=== PATIENT | female | born 1950 | race Caucasian/White ===

== ENCOUNTER 2018-04-16 07:24 | Emergency (ER) | payer OTHER, BC ==
[~2018-04-16] VITALS: Ht 170.2 cm; Wt 71.9 kg
[2018-04-16 07:26] VITALS: TEMP 36.8; Ht 170.2 cm; Wt 71.9 kg
[2018-04-16] MEDS ORDERED: ONDANSETRON INJ 2 MG/ML 2 ML VIAL IV STA (07:45)
[2018-04-16] MEDS ORDERED: SODIUM CHLORIDE 0.9% 1000ML 1,000 ML IV STA (07:45)
[2018-04-16] MEDS ORDERED: MoRPHine SULFATE 10 MG/ML CARP/VIAL IV STA (07:45)
[2018-04-16] MEDS ORDERED: KETOROLAC TROMETHAMINE 30 MG/ML VIAL IV STA (07:45)
[2018-04-16] MEDS ORDERED: TAMSULOSIN HCL 0.4 MG CAP PO ONE (07:45)
[2018-04-16 08:06] LABS: BASO % 0.6 %; BASO ABS # 0.04 K/uL (0-0.2); EOS % 1.6 %; EOS ABS # 0.11 K/uL (0-0.5); HEMATOCRIT 40.5 % (37-47); HEMOGLOBIN 13.4 g/dL (12.0-16.0); IG# 0.02 K/uL (0.00-0.02); LYMPH % 16.4 %; LYMPH ABS # 1.12 K/uL (1.2-3.4); MEAN CELL VOLUME 85.3 fL (80-100); MEAN CORPUSCULAR HEMOGLOBIN 28.2 pg (25-34); MEAN CORPUSCULAR HGB CONC 33.1 g/dl (32-36); MEAN PLATELET VOLUME 10.2 fL (7.4-10.4); MONO % 4.5 %; MONO ABS # 0.31 K/uL (0.11-0.59); NEUT % 76.6 %; NEUT ABS # 5.25 K/uL (1.4-6.5); PLATELET COUNT 167 K/uL (130-400); RED CELL DISTRIBUTION WIDTH CV 14.9 % (11.5-14.5); RED CELL DISTRIBUTION WIDTH SD 46.4 fL (36.4-46.3); WHITE BLOOD COUNT 6.85 K/uL (4.8-10.8)
[2018-04-16] MEDS ORDERED: LISI-787 PO (08:20)
[2018-04-16] MEDS ORDERED: DEXL60CA4 PO (08:20)
[2018-04-16] MEDS ORDERED: GLC/500 PO ×2 (08:20)
[2018-04-16] MEDS ORDERED: ROSU40TA PO (08:20)
[2018-04-16 08:25] LABS: ALBUMIN 3.2 gm/dl (3.4-5.0); CALCIUM 8.7 mg/dl (8.5-10.1); CREATININE 1.01 mg/dl (0.60-1.20); POTASSIUM 3.3 mmol/L (3.5-5.1); TOTAL PROTEIN 7.1 gm/dl (6.4-8.2)
[2018-04-16] MEDS ORDERED: NITROFURANTOIN MONOHYDRATE 100 MG CAP PO ONE (08:30)
--- NOTE | 2018-04-16 08:37 | EMERGENCY ROOM VISIT NOTE ---
ED Visit Note First contact with patient: 07:29 I have seen and examined this patient with Brenda Zepeda and generally agree with the treatment plan as discussed. Current/Historical Medications Scheduled Dexlansoprazole (Dexilant), 60 MG PO DAILY Lisinopril/Hctz (Zestoretic 20MG/12.5MG), 2 TABS PO DAILY Metformin Hcl (Glucophage), 1,000 MG PO QAM Metformin Hcl (Glucophage), 500 MG PO QPM Rosuvastatin Calcium (Crestor), 40 MG PO DAILY Allergies Coded Allergies: Acetaminophen (Unverified Adverse Reaction, Intermediate, "MAKES ME SICK" , 04/16/18) Oxycodone (Unverified Adverse Reaction, Intermediate, "MAKES ME SICK", ) Vital Signs Date Time Temp Pulse Resp B/P (MAP) Pulse Ox O2 Delivery O2 Flow Rate FiO2 04/16/18 08:13 54 98 Room Air 04/16/18 07:26 36.8 51 18 155/74 99 Room Air Laboratory Results 04/16/18 07:55 Red Blood Count 4.75, Mean Corpuscular Volume 85.3, Mean Corpuscular Hemoglobin 28.2, Mean Corpuscular Hemoglobin Concent 33.1, Mean Platelet Volume 10.2, Neutrophils (%) (Auto) 76.6, Lymphocytes (%) (Auto) 16.4, Monocytes (%) (Auto) 4.5, Eosinophils (%) (Auto) 1.6, Basophils (%) (Auto) 0.6, Neutrophils # (Auto) 5.25, Lymphocytes # (Auto) 1.12, Monocytes # (Auto) 0.31, Eosinophils # (Auto) 0.11, Basophils # (Auto) 0.04 04/16/18 07:55 Test 04/16/18 07:30 04/16/18 07:55 Urine Color YELLOW Urine Appearance CLOUDY (CLEAR) Urine pH 5.0 (4.5-7.5) Urine Specific [place] 1.021 (1.000-1.030) Urine Protein 1+ (NEG) Urine Glucose (UA) 1+ (NEG) Urine Ketones TRACE (NEG) Urine Occult Blood 2+ (NEG) Urine Nitrite NEG (NEG) Urine Bilirubin NEG (NEG) Urine Urobilinogen NEG (NEG) Urine Leukocyte Esterase TRACE (NEG) Urine WBC (Auto) 5-10 /hpf (0-5) Urine RBC (Auto) >30 /hpf (0-4) Urine Hyaline Casts (Auto) 5-10 /lpf (0-5) Urine Epithelial Cells (Auto) >30 /lpf (0-5) Urine Bacteria (Auto) 1+ (NEG) White Blood Count 6.85 K/uL (4.8-10.8) Red Blood Count 4.75 M/uL (4.2-5.4) Hemoglobin 13.4 g/dL (12.0-16.0) Hematocrit 40.5 % (37-47) Mean Corpuscular Volume 85.3 fL (80-100) Mean Corpuscular Hemoglobin 28.2 pg (25-34) Mean Corpuscular Hemoglobin Concent 33.1 g/dl (32-36) Platelet Count 167 K/uL (130-400) Mean Platelet Volume 10.2 fL (7.4-10.4) Neutrophils (%) (Auto) 76.6 % Lymphocytes (%) (Auto) 16.4 % Monocytes (%) (Auto) 4.5 % Eosinophils (%) (Auto) 1.6 % Basophils (%) (Auto) 0.6 % Neutrophils # (Auto) 5.25 K/uL (1.4-6.5) Lymphocytes # (Auto) 1.12 K/uL (1.2-3.4) Monocytes # (Auto) 0.31 K/uL (0.11-0.59) Eosinophils # (Auto) 0.11 K/uL (0-0.5) Basophils # (Auto) 0.04 K/uL (0-0.2) RDW Standard Deviation 46.4 fL (36.4-46.3) RDW Coefficient of Variation 14.9 % (11.5-14.5) Immature Granulocyte % (Auto) 0.3 % Immature Granulocyte # (Auto) 0.02 K/uL (0.00-0.02) Anion Gap 8.0 mmol/L (3-11) Est Creatinine Clear Calc Drug Dose 52.6 ml/min Estimated GFR () 66.7 Estimated GFR (Non- 57.6 BUN/Creatinine Ratio 12.4 (10-20) Calcium Level 8.7 mg/dl (8.5-10.1) Total Bilirubin 0.9 mg/dl (0.2-1) Direct Bilirubin 0.2 mg/dl (0-0.2) Aspartate Amino Transf (AST/SGOT) 14 U/L (15-37) Alanine Aminotransferase (ALT/SGPT) 16 U/L (12-78) Alkaline Phosphatase 78 U/L (45-117) Total Protein 7.1 gm/dl (6.4-8.2) Albumin 3.2 gm/dl (3.4-5.0) Lipase 78 U/L (73-393) Medications Administered Medications (Trade) Dose Ordered Sig/Nam Route Start Time Stop Time Status Last Admin Dose Admin Sodium Chloride 1,000 ml @ 999 mls/hr Q1H1M STAT IV 04/16/18 07:45 04/16/18 08:45 04/16/18 08:07 999 MLS/HR Ondansetron HCl (Zofran Inj) 4 mg NOW STAT IV 04/16/18 07:45 04/16/18 07:49 DC 04/16/18 08:06 4 MG Ketorolac Tromethamine (Toradol Inj) 30 mg NOW STAT IV 04/16/18 07:45 04/16/18 07:49 DC 04/16/18 08:06 30 MG Morphine Sulfate (MoRPHine SULFATE INJ) 6 mg NOW STAT IV 04/16/18 07:45 04/16/18 07:49 DC 04/16/18 08:07 6 MG Tamsulosin HCl (Flomax Cap) 0.4 mg NOW ONCE PO 04/16/18 07:45 04/16/18 07:49 DC 04/16/18 08:06 0.4 MG Departure Information Referrals Shukri Cruz (PCP) Patient Instructions My [facility]
--- NOTE | 2018-04-16 08:59 | DIAGNOSTIC IMAGING REPORT ---
ABD/PELVIS WITHOUT FOR STONE CT DOSE: 1033.54 mGy.cm HISTORY: Flank pain rt flank pain TECHNIQUE: Multiaxial CT images of the abdomen and pelvis were performed without the use of intravenous and oral contrast according to the standard department stone protocol. A dose lowering technique was utilized adhering to the principles of ALARA. COMPARISON STUDY: None. FINDINGS: Minimal dependent basilar atelectasis. Liver spleen and pancreas are unremarkable. Left kidney is negative for hydronephrosis. There are several small cysts with a 1.8 cm cyst at the midpole region. No evidence for hydronephrosis. Right kidney shows moderate right renal hydronephrosis with mild infiltrative change of the right perinephric fat. Right ureter is slightly full as compared to the left extending to a partially obstructing calculus of the distal right ureter measuring 3 mm at the level of the inferior right sacroiliac joint. Nonobstructive bowel pattern. Normal appendix. Chronic sigmoid diverticulosis with no evidence for acute diverticulitis. IMPRESSION: 1. 3 mm partially obstructing calculus distal right ureter. 2. Mild right hydroureteronephrosis. 3. Chronic sigmoid diverticulosis with no evidence for acute diverticulitis. The above report was generated using voice recognition software. It may contain grammatical, syntax or spelling errors. Electronically signed by: Gera Zepeda M.D. 04/16/2018 8:58 AM Dictated Date/Time: 04/16/2018 8:50 AM
[2018-04-16] MEDS ORDERED: POTASSIUM CHLORIDE 10 MEQ TABCR PO STA (09:23)
[2018-04-16] MEDS ORDERED: OXYC-737 PO (09:39)
[2018-04-16] MEDS ORDERED: NITR-5 PO (09:39)
[2018-04-16] MEDS ORDERED: TAMS0.4C38 PO (09:40)
[2018-04-16] MEDS ORDERED: ONDA4TAB10 SL (09:40)
--- NOTE | 2018-04-16 09:42 | EMERGENCY ROOM VISIT NOTE ---
History First contact with patient: 07:29 Chief Complaint: KIDNEY STONE Stated Complaint: KIDNEY PAIN,FLANK PAIN, LOWER ABD PAIN History of Present Illness The patient is a 67 year old female who presents to the Emergency Room with complaints of right flank pain radiating around the right side into her groin. This started at 7pm last night and has persisted since then so decided to come to the ER. She describes the pain as a constant sharp ache that she rates a 10/ 10 on her pain scale but admits it is not the worst pain of her life. She had taken 1.5 tablets of oxycodon last night that is her husbands and experienced some relief. She admits to limiting her intake of fluids, but that is not out of the usual. She has a history of kidney stone, her last one being 5 years ago. She has had nausea, vomiting this morning, blood in urine, and slight pain during urination. She denies any urinary retention, history problems with her bowels, constipation, diarrhea, or change in bowel habits. The patient states that she has seen a urologist in [place] in the past but would like to go to urologist locally if needed. Review of Systems 10 system review was performed and was negative unless stated otherwise history of present illness. Past Medical/Surgical History Diabetic, hypertension, GERD, cholecystectomy, hysterectomy, kidney stones, femoral stents. Social History Smoking Status: Former Smoker Alcohol Use: none Marital Status: Housing Status: lives with family Occupation Status: retired Current/Historical Medications Scheduled Dexlansoprazole (Dexilant), 60 MG PO DAILY Lisinopril/Hctz (Zestoretic 20MG/12.5MG), 2 TABS PO DAILY Metformin Hcl (Glucophage), 1,000 MG PO QAM Metformin Hcl (Glucophage), 500 MG PO QPM Rosuvastatin Calcium (Crestor), 40 MG PO DAILY Physical Exam Vital Signs Date Time Temp Pulse Resp B/P (MAP) Pulse Ox O2 Delivery O2 Flow Rate FiO2 04/16/18 08:55 79 16 128/61 96 Room Air 04/16/18 08:13 54 98 Room Air 04/16/18 07:26 36.8 51 18 155/74 99 Room Air Physical Exam GENERAL: 67-year-old female appears in no acute distress. MENTAL Status: Alert and oriented 3. MOUTH: Mucosa is moist NECK: Supple, no lymphadenopathy noted. No carotid bruits noted. LUNGS: Clear auscultation without wheezes rales or rhonchi. CARDIAC: Regular rate and rhythm without murmur. Pulses is full and equal throughout. BACK: Right CVA tenderness noted. ABDOMEN: Positive bowel sounds all 4 quadrants. Soft, generalized mild tenderness to palpation throughout. No organomegaly or masses noted. EXTREMITIES: No cyanosis or edema noted. Medical Decision & Procedures ER Provider Diagnostic Interpretation: ABD/PELVIS WITHOUT FOR STONE CT DOSE: 1033.54 mGy.cm HISTORY: Flank pain rt flank pain TECHNIQUE: Multiaxial CT images of the abdomen and pelvis were performed without the use of intravenous and oral contrast according to the standard department stone protocol. A dose lowering technique was utilized adhering to the principles of ALARA. COMPARISON STUDY: None. FINDINGS: Minimal dependent basilar atelectasis. Liver spleen and pancreas are unremarkable. Left kidney is negative for hydronephrosis. There are several small cysts with a 1.8 cm cyst at the midpole region. No evidence for hydronephrosis. Right kidney shows moderate right renal hydronephrosis with mild infiltrative change of the right perinephric fat. Right ureter is slightly full as compared to the left extending to a partially obstructing calculus of the distal right ureter measuring 3 mm at the level of the inferior right sacroiliac joint. Nonobstructive bowel pattern. Normal appendix. Chronic sigmoid diverticulosis with no evidence for acute diverticulitis. IMPRESSION: 1. 3 mm partially obstructing calculus distal right ureter. 2. Mild right hydroureteronephrosis. 3. Chronic sigmoid diverticulosis with no evidence for acute diverticulitis. The above report was generated using voice recognition software. It may contain grammatical, syntax or spelling errors. Electronically signed by: Gera Zepeda M.D. 04/16/2018 8:58 AM Dictated Date/Time: 04/16/2018 8:50 AM Laboratory Results 04/16/18 07:55 Red Blood Count 4.75, Mean Corpuscular Volume 85.3, Mean Corpuscular Hemoglobin 28.2, Mean Corpuscular Hemoglobin Concent 33.1, Mean Platelet Volume 10.2, Neutrophils (%) (Auto) 76.6, Lymphocytes (%) (Auto) 16.4, Monocytes (%) (Auto) 4.5, Eosinophils (%) (Auto) 1.6, Basophils (%) (Auto) 0.6, Neutrophils # (Auto) 5.25, Lymphocytes # (Auto) 1.12, Monocytes # (Auto) 0.31, Eosinophils # (Auto) 0.11, Basophils # (Auto) 0.04 04/16/18 07:55 Test 04/16/18 07:30 04/16/18 07:55 Urine Color YELLOW Urine Appearance CLOUDY (CLEAR) Urine pH 5.0 (4.5-7.5) Urine Specific [place] 1.021 (1.000-1.030) Urine Protein 1+ (NEG) Urine Glucose (UA) 1+ (NEG) Urine Ketones TRACE (NEG) Urine Occult Blood 2+ (NEG) Urine Nitrite NEG (NEG) Urine Bilirubin NEG (NEG) Urine Urobilinogen NEG (NEG) Urine Leukocyte Esterase TRACE (NEG) Urine WBC (Auto) 5-10 /hpf (0-5) Urine RBC (Auto) >30 /hpf (0-4) Urine Hyaline Casts (Auto) 5-10 /lpf (0-5) Urine Epithelial Cells (Auto) >30 /lpf (0-5) Urine Bacteria (Auto) 1+ (NEG) White Blood Count 6.85 K/uL (4.8-10.8) Red Blood Count 4.75 M/uL (4.2-5.4) Hemoglobin 13.4 g/dL (12.0-16.0) Hematocrit 40.5 % (37-47) Mean Corpuscular Volume 85.3 fL (80-100) Mean Corpuscular Hemoglobin 28.2 pg (25-34) Mean Corpuscular Hemoglobin Concent 33.1 g/dl (32-36) Platelet Count 167 K/uL (130-400) Mean Platelet Volume 10.2 fL (7.4-10.4) Neutrophils (%) (Auto) 76.6 % Lymphocytes (%) (Auto) 16.4 % Monocytes (%) (Auto) 4.5 % Eosinophils (%) (Auto) 1.6 % Basophils (%) (Auto) 0.6 % Neutrophils # (Auto) 5.25 K/uL (1.4-6.5) Lymphocytes # (Auto) 1.12 K/uL (1.2-3.4) Monocytes # (Auto) 0.31 K/uL (0.11-0.59) Eosinophils # (Auto) 0.11 K/uL (0-0.5) Basophils # (Auto) 0.04 K/uL (0-0.2) RDW Standard Deviation 46.4 fL (36.4-46.3) RDW Coefficient of Variation 14.9 % (11.5-14.5) Immature Granulocyte % (Auto) 0.3 % Immature Granulocyte # (Auto) 0.02 K/uL (0.00-0.02) Anion Gap 8.0 mmol/L (3-11) Est Creatinine Clear Calc Drug Dose 52.6 ml/min Estimated GFR () 66.7 Estimated GFR (Non- 57.6 BUN/Creatinine Ratio 12.4 (10-20) Calcium Level 8.7 mg/dl (8.5-10.1) Total Bilirubin 0.9 mg/dl (0.2-1) Direct Bilirubin 0.2 mg/dl (0-0.2) Aspartate Amino Transf (AST/SGOT) 14 U/L (15-37) Alanine Aminotransferase (ALT/SGPT) 16 U/L (12-78) Alkaline Phosphatase 78 U/L (45-117) Total Protein 7.1 gm/dl (6.4-8.2) Albumin 3.2 gm/dl (3.4-5.0) Lipase 78 U/L (73-393) Medications Administered Medications (Trade) Dose Ordered Sig/Nam Route Start Time Stop Time Status Last Admin Dose Admin Sodium Chloride 1,000 ml @ 999 mls/hr Q1H1M STAT IV 04/16/18 07:45 04/16/18 08:45 DC 04/16/18 08:07 999 MLS/HR Ondansetron HCl (Zofran Inj) 4 mg NOW STAT IV 04/16/18 07:45 04/16/18 07:49 DC 04/16/18 08:06 4 MG Ketorolac Tromethamine (Toradol Inj) 30 mg NOW STAT IV 04/16/18 07:45 04/16/18 07:49 DC 04/16/18 08:06 30 MG Morphine Sulfate (MoRPHine SULFATE INJ) 6 mg NOW STAT IV 04/16/18 07:45 04/16/18 07:49 DC 04/16/18 08:07 6 MG Tamsulosin HCl (Flomax Cap) 0.4 mg NOW ONCE PO 04/16/18 07:45 04/16/18 07:49 DC 04/16/18 08:06 0.4 MG Nitrofurantoin Macrocrystals (Macrobid Cap) 100 mg ONE ONCE PO 04/16/18 08:30 04/16/18 08:31 DC 04/16/18 08:54 100 MG ED Course The patient was evaluated. Patient's EMR medication list were reviewed. IV access was obtained. The patient was given 1 L normal saline wide open. The patient was given Toradol 30 mg IV, Zofran 4 mg IV, morphine 6 mg IV and Flomax 0.4 mg p.o. CBC differential, renal profile, LFTs and lipase levels were ordered. Urinalysis was ordered. Urinalysis revealed positive blood and bacteria. The patient was given Macrobid 100 mg p.o. The patient's labs are reviewed. The patient's potassium was slightly low therefore she was given 10 mEq of K Dur p.o. CT of the abdomen and pelvis for stone was ordered interpreted by the radiologist as above with a 3 mm partially obstructing stone at the right distal ureter with mild hydronephrosis. Patient was informed of the findings. The patient was feeling much better. Patient was discharged home in stable condition after being independently evaluated by Dr. Lockhart. Medical Decision Differential diagnosis include UTI, pyelonephritis, ureteral calculi [place] Drug Monitoring Program Search Results: patient reviewed within database Medication Reconcilliation Current Medication List: was personally reviewed by ks Blood Pressure Screening Patient's blood pressure: Elevated blood pressure Blood pressure disposition: Elevated BP felt to be situational Impression Primary Impression: Ureteral calculus, right Additional Impressions: UTI (urinary tract infection) Hypokalemia Departure Information Dispostion Home / Self-Care Condition GOOD Prescriptions Tamsulosin Hcl (FLOMAX) 0.4 Mg Cap 0.4 MG PO DAILY for 7 Days, #7 CAP Prov: Rema Zepeda PA-C 04/16/18 Ondasetron Odt (ZOFRAN ODT) 4 Mg Tab 4 MG SL Q6H for Nausea, #10 TAB Prov: Rema Zepeda PA-C 04/16/18 Oxycodone Immediate Rel Tab (ROXICODONE IR) 5 Mg Tab 1-2 TAB PO Q4H Y for Pain, #24 TAB Prov: Rema Zepeda PA-C 04/16/18 Nitrofurantoin Monohyd Macrocr (Macrobid) 100 Mg Cap 100 MG PO BID for 7 Days, #14 CAP Prov: Rema Zepeda PA-C 04/16/18 Referrals Ramesh Benavidez MD Forms HOME CARE DOCUMENTATION FORM, IMPORTANT VISIT INFORMATION Patient Instructions My [facility] [employer] Additional Instructions Strain all urine. Eat a banana daily for 1 week. Push fluids. Ibuprofen 600 mg every 6 hours with food for pain. Take OxyIR as needed for more severe pain. Do not drive while taking the OxyIR. Take Zofran as needed for nausea. Take Macrobid as prescribed for your UTI. Take Flomax daily as prescribed. If your stone does not pass in 5 days follow-up with Dr. Benavidez. If your symptoms worsen in the interim/uncontrolled pain, uncontrolled vomiting, fever return to ER immediately. Problem Qualifiers Additional Impressions: UTI (urinary tract infection) Urinary tract infection type: acute cystitis Hematuria presence: with hematuria Qualified Codes: N30.01 - Acute cystitis with hematuria
[2018-04-16 10:17] VITALS: BP 129/57; PULSE 61; O2SAT 95
== END 2018-04-16 10:18 | disposition home or self-care (01) ==
LOC: C.EDB 07:25
DX: N13.2 Hydronephrosis with renal and ureteral calculous obstruction (principal); N39.0 Urinary tract infection, site not specified; E87.6 Hypokalemia; Z87.442 Personal history of urinary calculi; E11.9 Type 2 diabetes mellitus without complications; I10 Essential (primary) hypertension; K21.9 Gastro-esophageal reflux disease without esophagitis; Z90.49 Acquired absence of other specified parts of digestive tract; Z90.710 Acquired absence of both cervix and uterus; Z87.891 Personal history of nicotine dependence; Z79.84 Long term (current) use of oral hypoglycemic drugs; Z79.899 Other long term (current) drug therapy; Z88.6 Allergy status to analgesic agent; Z88.5 Allergy status to narcotic agent

== ENCOUNTER 2019-01-22 12:43 | Inpatient (IN) ==
[2019-01-22] MEDS ORDERED: ACETAMINOPHEN 1,000 MG/100 ML VIAL IV STA (13:12)
[2019-01-22] MEDS ORDERED: SODIUM CHLORIDE 0.9% 1000ML 2,000 ML IV ONE (13:12)
[2019-01-22] MEDS ORDERED: KETOROLAC TROMETHAMINE 15 MG/ML VIAL IV STA (13:12)
[2019-01-22 13:26] LABS: Basophils # (auto) 0.02 K/uL (0-0.2); Basophils % (auto) 0.3 %; Eosinophils # (auto) 0.01 K/uL (0-0.5); Eosinophils % (auto) 0.2 %; Hematocrit (blood only) 40.6 % (37-47); Hemoglobin 14.9 g/dL (12.0-16.0); Immature Granulocytes # (auto) 0.03 K/uL (0.00-0.02); Immature Granulocytes % (auto) 0.5 %; Lymphocytes # (auto) 1.38 K/uL (1.2-3.4); Lymphocytes % (auto) 23.7 %; Mean Corpuscular Hgb Conc 36.7 g/dL (32-36); Mean Corpuscular Volume 86.9 fL (80-100); Mean Platelet Volume 10.3 fL (7.4-10.4); Monocytes # (auto) 0.16 K/uL (0.11-0.59); Monocytes % (auto) 2.7 %; Neutrophils # (auto) 4.22 K/uL (1.4-6.5); Neutrophils % (auto) 72.6 %; Platelet Count 134 K/uL (130-400); RDW Coefficient of Variation 14.1 % (11.5-14.5); RDW Standard Deviation 44.9 fL (36.4-46.3); Red Blood Count 4.67 M/uL (4.2-5.4); White Blood Count 5.82 K/uL (4.8-10.8)
--- NOTE | 2019-01-22 13:32 | XRay Report ---
XR chest 1V portable CLINICAL HISTORY: Sepsis dyspnea COMPARISON STUDY: No previous studies for comparison. FINDINGS: The bones soft tissues and hemidiaphragms are normal. The cardiomediastinal silhouette is n ormal. The lungs are clear. The pulmonary vasculature is normal. IMPRESSION: Negative chest. The above report was generated using voice recognition software. It may contain grammatical, syntax or spelling errors. Electronically signed by: Gera Zepeda M.D. 01/22/2019 1:31 PM
[2019-01-22 13:35] LABS: Alanine Aminotransferase 14 U/L (12-78); Albumin Level 2.7 gm/dl (3.4-5.0); Bilirubin Direct 0.6 mg/dl (0-0.2); Blood Urea Nitrogen 13 mg/dl (7-18); Calcium 9.4 mg/dl (8.5-10.1); Carbon Dioxide 22 mmol/L (21-32); Chloride 104 mmol/L (98-107); Est GFR (African American) 47.5; Glucose 168 mg/dl (70-99); Magnesium 1.8 mg/dl (1.8-2.4); Potassium 3.2 mmol/L (3.5-5.1); Sodium 138 mmol/L (136-145)
[2019-01-22 13:45] LABS: Albumin Globulin Ratio 0.6 (0.9-2); Alkaline Phosphatase 106 U/L (45-117); Aspartate Aminotransferase 19 U/L (15-37); Bilirubin,Total 1.6 mg/dl (0.2-1); Creatine Kinase 25 U/L (26-192); Globulin 4.8 gm/dl (2.5-4.0); Phosphorus 1.5 mg/dl (2.5-4.9); Total Protein 7.5 gm/dl (6.4-8.2); Troponin I < 0.015 ng/ml (0-0.045)
[2019-01-22] MEDS ORDERED: PIPERACILL/TAZOBAC CONSULT ACTIVE PRN ×2 (13:52→17:17)
[2019-01-22] MEDS ORDERED: PIPERACILLIN/TAZOBACTAM 4.5 GM/120 ML BAG IV ONE (13:52)
[2019-01-22 14:07] LABS: Base Excess VBG -0.8 mEq/L; pH VBG 7.46 (7.36-7.41)
[2019-01-22 14:17] LABS: INR 1.3 (0.9-1.1); Partial Thromboplastin Ratio 1.1; Partial Thromboplastin Time 30.4 Seconds (21.0-31.0); Prothrombin Time 12.9 Seconds (9.0-12.0)
[2019-01-22] MEDS ORDERED: IOVERSOL 100ml IV PRN (14:37)
[2019-01-22] MEDS ORDERED: POTASSIUM PHOS 3 MMOL/1 ML INFUSION IV STA (15:00)
[2019-01-22] MEDS ORDERED: SODIUM CHLORIDE 0.9% 1000ML 1,000 ML IV ONE (15:00)
--- NOTE | 2019-01-22 15:01 | CT Scan Report ---
CT abd pelvis IV con only CT DOSE: 311.33 mGy.cm HISTORY: Pain. Nausea. lower abd pain, fever TECHNIQUE: Multiaxial CT images of the abdomen and pelvis were performed following the use of intrave nous contrast. A dose lowering technique was utilized adhering to the principles of ALARA. COMPARISON STUDY: 04/16/2018 FINDINGS: Mild bibasilar interstitial change. Liver spleen and pancreas enhance uniformly. Minimal hy perplastic change of the adrenal glands. Kidneys are uniform in appearance. Slight fullness of the right as well as left renal collecting syst ems with slight uroepithelial thickening of the ureters and collecting systems bilaterally. Mild paula nephric infiltrative change unaltered from the prior exam. Normal appendix. Nonobstructive bowel pattern. Chronic sigmoid diverticulosis. No evidence for acute diverticulitis. IMPRESSION: 1. Chronic sigmoid diverticulosis. 2. Mild prominence of the upper urinary tract uroepithelial tissues raising the possibility of pyelon ephritis bilaterally. 3. Correlation with urinalysis is suggested as follow-up. 4. Normal appendix. 5. Nonobstructive bowel pattern. The above report was generated using voice recognition software. It may contain grammatical, syntax or spelling errors. Electronically signed by: Gera Zepeda M.D. 01/22/2019 2:59 PM
[2019-01-22] MEDS ORDERED: POTASSIUM PHOSPHATE 9 MMOL in SODIUM CHLORIDE 0.9% 250 ML IV ONE (15:15)
--- NOTE | 2019-01-22 15:52 | History & Physical Report ---
Date of Service January 22, 2019 Assessment & Plan (1) UTI (urinary tract infection): Currently on intravenous Zosyn. Await urine culture results and tailor antibiotics accordingly Present on Admission?: Yes (2) BRIANNA (acute kidney injury): Administer IV fluids. Monitor urine output. Hold lisinopril and hydro chlorothiazide Present on Admission?: Yes (3) Volume depletion: Hold diuretics. Administer IV fluids. Monitor urine output. Present on Admission?: Yes (4) Hypokalemia: IV replacement therapy. Serial labs Present on Admission?: Yes (5) Hypophosphatemia: IV replacement therapy. Serial labs Present on Admission?: Yes (6) DM2 (diabetes mellitus, type 2): She states she has not been taking metformin for quite some time. Will cover with sliding scale insulin as needed (7) HTN (hypertension): Blood pressure is borderline low on admission. Will hold lisinopril (8) DVT prophylaxis: Lovenox subcu History of Present Illness Chief Complaint: Hematuria, dysuria, chills, weakness Primary Care Provider: Shukri Anthony 68-year-old female with several days of UTI symptoms consisting of hematuria, dysuria, chills. She has not been eating well. The family members found her today with altered mental status and she was brought to the ED for evaluation. She has evidence of urinary tract infection with volume depletion and acute kidney injury. There is possible early pyelonephritis on CT scan but this is not definitive in my opinion. She is mildly hypokalemic and mildly hypophosphatemic. Creatinine is elevated at 1.3. Chest x-ray negative. At the time of my examination she has been given intravenous fluids and antibiotics and is alert and oriented and she does have epigastric and lower mid abdominal discomfort. Otherwise bowels are soft and nondistended with active bowel sounds. She was informed that her lisinopril and hydrochlorothiazide will be held. Metformin will also be held. Potassium and phosphorus replacement were given in the ED. She will be admitted for further evaluation and treatment. Allergies Allergy/AdvReac Type Severity Reaction Status Date / Time acetaminophen AdvReac Intermediate "MAKES ME Unverified 01/22/19 14:23 SICK" oxycodone AdvReac Intermediate "MAKES ME Unverified 01/22/19 14:23 SICK" Home Medications Home Medications Medication Instructions Recorded Confirmed Type dexlansoprazole [Dexilant] 60 mg PO DAILY 01/22/19 01/22/19 History lisinopril-hydrochlorothiazide 1 tab PO DAILY 01/22/19 01/22/19 History metformin 1,000 mg PO QAM 01/22/19 01/22/19 History metformin 500 mg PO QPM 01/22/19 01/22/19 History naproxen sodium [Aleve] 220 mg PO UD PRN 01/22/19 01/22/19 History rosuvastatin 40 mg PO DAILY 01/22/19 01/22/19 History Past Med/Surg History Medical History DVT prophylaxis HTN (hypertension) DM2 (diabetes mellitus, type 2) Hypophosphatemia (Acute) Hypokalemia (Acute) Volume depletion (Acute) BRIANNA (acute kidney injury) (Acute) UTI (urinary tract infection) (Acute) Diabetes No significant active problems No significant family history No significant past medical history No significant past surgical history Social History Feels Safe at Home: Yes Smoking Status: Unknown if ever smoked Review of Systems Review of Systems: All systems reviewed & are unremarkable except as noted in HPI & below Gastrointestinal: + abdominal pain (Epigastric and lower suprapubic) and + nausea Genitourinary: + dysuria, + urinary frequency and + hematuria Physical Exam Constitutional: + thin; no acute distress Eyes: PERRL, conjunctivae normal, anicteric sclerae ENMT: external ear and nose normal, oropharynx normal Neck: trachea midline, no thyromegaly Respiratory: normal respiratory effort, lungs clear to auscultation Cardiovascular: RRR, no murmur, no edema Gastrointestinal (Abdomen): Inspection/Auscultation: abdomen normal to inspection and normal bowel sounds; abdomen not distended Percus lizy/Palpation: + abdomen tender (Mildly tender in the epigastric region and suprapubic area) and abdomen soft; no guarding, abdomen not rigid and no ascites Musculoskeletal: no cyanosis or clubbing, extremities motor strength 5/5 Skin: no rashes, warm and dry Neurologic: CN's II-XI intact bilaterally and moves all extremities; no focal motor deficits Results & Data Vital Signs (Past 12 Hours) Vital Signs Temp Pulse Pulse Resp BP BP Pulse Ox 01/22/19 15:04 37.4 C 74 20 98/56 L 97 01/22/19 14:01 38.5 C H 86 20 98/55 L 95 01/22/19 13:30 96 01/22/19 13:13 90 96 01/22/19 12:59 39.5 C H 92 H 24 156/71 H 95 Laboratory Results 01/22/19 12:00 01/22/19 12:00 (1) UTI (urinary tract infection) Urinary tract infection type: site unspecified
--- NOTE | 2019-01-22 16:35 | Emergency Department Note ---
Entered by Dorita Rudd acting as a scribe for Gary Hines MD History of Present Illness General Chief complaint: Fever Stated complaint: hyperglycemia Time Seen by Provider: 01/22/19 12:54 Source: patient and RN notes reviewed Limitations: no limitations History of Present Illness Provider complaint: fever Onset (ago): day(s) 5 Location: left and right Associated symptoms: + denies other symptoms (-congestion), + cough, + fever/chills, + nausea/vomiting and + other (+painful urinations, +blood in urine) Treatments prior to arrival: other (+cranberry juice ) The patient is a 68 year old female who presents to the Emergency Room with complaints of a fever that began 5 days prior to arrival. The patient states that she has painful urinations, blood in urine, cough, nausea, and vomiting. The patient denies any congestion. Per nursing staff, the patient was found this morning covered in vomit and unresponsive by her family and states that the family gave her cranberry juice. Per nursing staff, the patient has a history of diabetes and is taking the medication glucophage. Home Medications Home Medications Medication Instructions Recorded Confirmed Type dexlansoprazole [Dexilant] 60 mg PO DAILY 01/22/19 01/22/19 History lisinopril-hydrochlorothiazide 1 tab PO DAILY 01/22/19 01/22/19 History metformin 1,000 mg PO QAM 01/22/19 01/22/19 History metformin 500 mg PO QPM 01/22/19 01/22/19 History naproxen sodium [Aleve] 220 mg PO UD PRN 01/22/19 01/22/19 History rosuvastatin 40 mg PO DAILY 01/22/19 01/22/19 History Allergies Allergy/AdvReac Type Severity Reaction Status Date / Time acetaminophen AdvReac Intermediate "MAKES ME Unverified 01/22/19 14:23 SICK" oxycodone AdvReac Intermediate "MAKES ME Unverified 01/22/19 14:23 SICK" Past Med/Surg History Medical History DVT prophylaxis HTN (hypertension) DM2 (diabetes mellitus, type 2) Hypophosphatemia (Acute) Hypokalemia (Acute) Volume depletion (Acute) BRIANNA (acute kidney injury) (Acute) Diabetes No significant active problems No significant family history No significant past medical history No significant past surgical history Social History Preferred Language: French Communication Ability: Effective Eyelet Operator Required: No Beliefs That Will Affect Care: None Current Living Situation: Alone Other Information That Helps Us Care for You: No Feels Safe at Home: Yes Smoking Status: Current every day smoker Tobacco Type: cigarettes Cigarettes Per Day: 20 Do You Dip or Chew Tobacco: No Second Hand Exposure: No Tobacco Cessation Education Requested by Patient: No Hx Alcohol Use: No Hx Substance Use: No Review of Systems See HPI for pertinent positives & negatives. and A total of 10 systems reviewed and were otherwise negative Physical Exam Vital Signs Vital Signs - 24 hr 01/22/19 12:59 01/22/19 13:13 01/22/19 13:30 Temperature 39.5 C H Temperature Source Oral Sepsis Recent Fever Within 48 Hours Yes Sepsis Action Taken by Nursing No Action Required Pulse Rate 92 H Pulse Rate [Finger] 90 Respiratory Rate 24 Respiratory Effort / Characteristics Non-Labored Respiratory Depth Normal Blood Pressure 156/71 H Blood Pressure [Right Arm] Blood Pressure Mean 99 Blood Pressure Mean [Right Arm] Pulse Oximetry 95 96 96 Oxygen Delivery Method Room Air Room Air Room Air 01/22/19 14:01 01/22/19 15:04 01/22/19 15:38 Temperature 38.5 C H 37.4 C 36.8 C Temperature Source Oral Oral Oral Sepsis Recent Fever Within 48 Hours Sepsis Action Taken by Nursing Pulse Rate Pulse Rate [Finger] 86 74 66 Respiratory Rate 20 20 18 Respiratory Effort / Characteristics Non-Labored Non-Labored Respiratory Depth Normal Normal Blood Pressure Blood Pressure [Right Arm] 98/55 L 98/56 L 100/62 Blood Pressure Mean Blood Pressure Mean [Right Arm] 69 70 74 Pulse Oximetry 95 97 98 Oxygen Delivery Method Room Air Room Air Room Air GENERAL: Awake, alert, ill- appearing, no distress. HENT: Normocephalic, atraumatic. TM's normal. Oropharynx with dry mucous membranes and otherwise unremarkable. EYES: PERRL. EOMI. Normal conjunctiva. Sclera non-icteric. NECK: Supple. No nuchal rigidity. FROM. No JVD or bruit. RESPIRATORY: CTAB CARDIAC: RRR. No murmur. ABDOMEN: Soft, non distended. Tenderness to palpation to lower abdomen. No rebound or guarding. No masses. RECTAL: Deferred. MUSCULOSKELETAL: Unremarkable. No edema. No discoloration. Gross motor strength symmetric. NEURO: Normal sensorium. No sensory or motor deficits noted. SKIN: No rash or jaundice noted. LYMPH: No adenopathy. Course 1308: The patient was evaluated in room C6, and a complete history and physical examination were performed. 1502: I checked on the patient and updated her on her results. 1530: I reviewed the [facility]'s [facility] who will evaluate the patient for further hospitalization. Consultations Consultation #1: [facility] Time: 15:30 Administered Medications Enoxaparin Sodium (Lovenox) 40 mg SQ Q24H [facility] Stop: 02/21/19 18:29 Last Admin: 01/22/19 18:38 Dose: 40 mg Documented by: [id number] Famotidine 20 mg/ Syringe 5 mls @ 2.5 mls/min IV Q12H JENNY Stop: 02/21/19 18:29 Last Admin: 01/22/19 18:39 Dose: 2.5 mls/min Documented by: [id number] Potassium Chloride/Sodium Chloride (Normal Saline W/20 Meq Kcl) 20 meq in 1,000 mls @ 125 mls/hr IV .Q8H [facility] Stop: 02/21/19 17:16 Last Admin: 01/22/19 18:38 Dose: 125 mls/hr Documented by: [id number] Piperacillin Sod/Tazobactam (Sod 3.375 gm/ Dextrose) 115 mls @ 28.75 mls/hr IV Q8H [facility]; Protocol Stop: 02/01/19 19:59 Last Admin: 01/22/19 20:30 Dose: 28.8 mls/hr Documented by: [id number] Insulin Aspart (Novolog Flexpen) 0 units SC ACHS JENNY Stop: 02/21/19 17:16 Last Admin: 01/22/19 21:25 Dose: 3 units Documented by: [id number] Cosigned by: [id number] Admin: 01/22/19 18:57 Dose: Not Given Documented by: [id number] Cosigned by: [id number] Ioversol (Optiray 320 100ml) 94 ml IV ONCE PRN PRN Reason: Interaction Checking Stop: 01/26/19 14:36 Last Admin: 01/22/19 14:37 Dose: 94 ml Documented by: [id number] Discontinued Medications Acetaminophen (Ofirmev) 1,000 mg in 100 mls @ 400 mls/hr IV NOW STA Stop: 01/22/19 13:26 Last Infusion: 01/22/19 16:32 Dose: 0 mls/hr Documented by: [id number] Admin: 01/22/19 13:40 Dose: 400 mls/hr Documented by: [id number] Sodium Chloride (Nss 1000ml) 2,000 mls @ 999 mls/hr IV .Q2H1M ONE Stop: 01/22/19 15:12 Last Infusion: 01/22/19 16:13 Dose: 0 mls/hr Documented by: [id number] Admin: 01/22/19 13:40 Dose: 999 mls/hr Documented by: [id number] Piperacillin Sod/Tazobactam Sod (Zosyn) 4.5 gm in 120 mls @ 240 mls/hr IV NOW ONE Stop: 01/22/19 14:21 Last Infusion: 01/22/19 16:13 Dose: 0 mls/hr Documented by: [id number] Admin: 01/22/19 15:01 Dose: 240 mls/hr Documented by: [id number] Sodium Chloride (Nss 1000ml) 1,000 mls @ 999 mls/hr IV .Q1H1M ONE Stop: 01/22/19 16:00 Last Admin: 01/22/19 18:01 Dose: Not Given Documented by: [id number] Potassium Phosphate 9 mmol/ (Sodium Chloride) 253 mls @ 88 mls/hr IV ONE ONE Stop: 01/22/19 18:07 Last Infusion: 01/22/19 18:59 Dose: 0 mls/hr Documented by: [id number] Admin: 01/22/19 16:14 Dose: 88 mls/hr Documented by: [id number] Ketorolac Tromethamine (Toradol) 15 mg IV NOW STA Stop: 01/22/19 13:13 Last Admin: 01/22/19 13:41 Dose: 15 mg Documented by: [id number] Potassium Phosphate (Potassium Phosphate Replace) 9 mmol IV NOW STA Stop: 01/22/19 15:01 Last Admin: 01/22/19 18:01 Dose: Not Given Documented by: [id number] Medical Decision Making Differential Diagnosis Differential diagnosis: Etiologies such as shingles, pyelonephritis/UTI, renal colic, appendicitis, diverticulitis, mesenteric ischemia, torsion, aortic pathology, infections, inflammatory bowel disease, bowel obstruction, PUD, biliary pathology, as well as others were entertained. Medical Records Attestation: I reviewed the patient's medical records. Home Medications Current Medication List: was personally reviewed by me Laboratory Data Attestation: I reviewed the patient's lab results. Result diagrams: 01/22/19 12:00 01/22/19 12:00 Lab Results 01/22/19 01/22/19 01/22/19 Range/Units 12:00 12:00 12:00 WBC 5.82 (4.8-10.8) K/uL RBC 4.67 (4.2-5.4) M/uL Hgb 14.9 (12.0-16.0) g/dL Hct 40.6 (37-47) % MCV 86.9 (80-100) fL MCH 31.9 (25-34) pg MCHC 36.7 H (32-36) g/dL RDW Std Deviation 44.9 (36.4-46.3) fL RDW Coeff of Billy 14.1 (11.5-14.5) % Plt Count 134 (130-400) K/uL MPV 10.3 (7.4-10.4) fL Immature Gran % (Auto) 0.5 % Neut % (Auto) 72.6 % Lymph % (Auto) 23.7 % [place] % (Auto) 2.7 % Eos % (Auto) 0.2 % Baso % (Auto) 0.3 % Immature Gran # (Auto) 0.03 H (0.00-0.02) K/uL Neut # (Auto) 4.22 (1.4-6.5) K/uL Lymph # (Auto) 1.38 (1.2-3.4) K/uL [place] # (Auto) 0.16 (0.11-0.59) K/uL Eos # (Auto) 0.01 (0-0.5) K/uL Baso # (Auto) 0.02 (0-0.2) K/uL PT Cancelled INR Cancelled APTT Cancelled PTT Ratio Cancelled VBG pH (7.36-7.41) VBG pCO2 (38-50) mmHg VBG pO2 mmHg VBG HCO3 mmol/L VBG O2 Saturation % VBG Base Excess mEq/L Barometric Pressure mm/Hg Sodium 138 (136-145) mmol/L Potassium 3.2 L (3.5-5.1) mmol/L Chloride 104 (98-107) mmol/L Carbon Dioxide 22 (21-32) mmol/L Anion Gap 12.0 H (3-11) BUN 13 (7-18) mg/dl Creatinine 1.33 H (0.6-1.2) mg/dl Est Cr Clr Drug Dosing Not Reportable Est GFR ( Amer) 47.5 Est GFR (Non-Af Amer) 41.0 BUN/Creatinine Ratio 10.0 (10-20) Glucose 168 H (70-99) mg/dl POC Glucose (70-99) Lactate (0.4-2.0) mmol/L Calcium 9.4 (8.5-10.1) mg/dl Phosphorus 1.5 L* (2.5-4.9) mg/dl Magnesium 1.8 (1.8-2.4) mg/dl Total Bilirubin 1.6 H (0.2-1) mg/dl Direct Bilirubin 0.6 H (0-0.2) mg/dl AST 19 (15-37) U/L ALT 14 (12-78) U/L Alkaline Phosphatase 106 (45-117) U/L Total Creatine Kinase 25 L (26-192) U/L Troponin I < 0.015 (0-0.045) ng/ml Total Protein 7.5 (6.4-8.2) gm/dl Albumin 2.7 L (3.4-5.0) gm/dl Globulin 4.8 H (2.5-4.0) gm/dl Albumin/Globulin Ratio 0.6 L (0.9-2) 01/22/19 01/22/19 01/22/19 Range/Units 12:55 13:46 13:46 WBC (4.8-10.8) K/uL RBC (4.2-5.4) M/uL Hgb (12.0-16.0) g/dL Hct (37-47) % MCV (80-100) fL MCH (25-34) pg MCHC (32-36) g/dL RDW Std Deviation (36.4-46.3) fL RDW Coeff of Billy (11.5-14.5) % Plt Count (130-400) K/uL MPV (7.4-10.4) fL Immature Gran % (Auto) % Neut % (Auto) % Lymph % (Auto) % [place] % (Auto) % Eos % (Auto) % Baso % (Auto) % Immature Gran # (Auto) (0.00-0.02) K/uL Neut # (Auto) (1.4-6.5) K/uL Lymph # (Auto) (1.2-3.4) K/uL [place] # (Auto) (0.11-0.59) K/uL Eos # (Auto) (0-0.5) K/uL Baso # (Auto) (0-0.2) K/uL PT INR APTT PTT Ratio VBG pH 7.46 H (7.36-7.41) VBG pCO2 32 L (38-50) mmHg VBG pO2 52 mmHg VBG HCO3 22 mmol/L VBG O2 Saturation 88.0 % VBG Base Excess -0.8 mEq/L Barometric Pressure 733.0 mm/Hg Sodium (136-145) mmol/L Potassium (3.5-5.1) mmol/L Chloride (98-107) mmol/L Carbon Dioxide (21-32) mmol/L Anion Gap (3-11) BUN (7-18) mg/dl Creatinine (0.6-1.2) mg/dl Est Cr Clr Drug Dosing Est GFR ( Amer) Est GFR (Non-Af Amer) BUN/Creatinine Ratio (10-20) Glucose (70-99) mg/dl POC Glucose 196 H (70-99) Lactate 1.2 (0.4-2.0) mmol/L Calcium (8.5-10.1) mg/dl Phosphorus (2.5-4.9) mg/dl Magnesium (1.8-2.4) mg/dl Total Bilirubin (0.2-1) mg/dl Direct Bilirubin (0-0.2) mg/dl AST (15-37) U/L ALT (12-78) U/L Alkaline Phosphatase (45-117) U/L Total Creatine Kinase (26-192) U/L Troponin I (0-0.045) ng/ml Total Protein (6.4-8.2) gm/dl Albumin (3.4-5.0) gm/dl Globulin (2.5-4.0) gm/dl Albumin/Globulin Ratio (0.9-2) 05/25/19 Range/Units 13:46 WBC (4.8-10.8) K/uL RBC (4.2-5.4) M/uL Hgb (12.0-16.0) g/dL Hct (37-47) % MCV (80-100) fL MCH (25-34) pg MCHC (32-36) g/dL RDW Std Deviation (36.4-46.3) fL RDW Coeff of Billy (11.5-14.5) % Plt Count (130-400) K/uL MPV (7.4-10.4) fL Immature Gran % (Auto) % Neut % (Auto) % Lymph % (Auto) % [place] % (Auto) % Eos % (Auto) % Baso % (Auto) % Immature Gran # (Auto) (0.00-0.02) K/uL Neut # (Auto) (1.4-6.5) K/uL Lymph # (Auto) (1.2-3.4) K/uL [place] # (Auto) (0.11-0.59) K/uL Eos # (Auto) (0-0.5) K/uL Baso # (Auto) (0-0.2) K/uL PT 12.9 H INR 1.3 H APTT 30.4 PTT Ratio 1.1 VBG pH (7.36-7.41) VBG pCO2 (38-50) mmHg VBG pO2 mmHg VBG HCO3 mmol/L VBG O2 Saturation % VBG Base Excess mEq/L Barometric Pressure mm/Hg Sodium (136-145) mmol/L Potassium (3.5-5.1) mmol/L Chloride (98-107) mmol/L Carbon Dioxide (21-32) mmol/L Anion Gap (3-11) BUN (7-18) mg/dl Creatinine (0.6-1.2) mg/dl Est Cr Clr Drug Dosing Est GFR ( Amer) Est GFR (Non-Af Amer) BUN/Creatinine Ratio (10-20) Glucose (70-99) mg/dl POC Glucose (70-99) Lactate (0.4-2.0) mmol/L Calcium (8.5-10.1) mg/dl Phosphorus (2.5-4.9) mg/dl Magnesium (1.8-2.4) mg/dl Total Bilirubin (0.2-1) mg/dl Direct Bilirubin (0-0.2) mg/dl AST (15-37) U/L ALT (12-78) U/L Alkaline Phosphatase (45-117) U/L Total Creatine Kinase (26-192) U/L Troponin I (0-0.045) ng/ml Total Protein (6.4-8.2) gm/dl Albumin (3.4-5.0) gm/dl Globulin (2.5-4.0) gm/dl Albumin/Globulin Ratio (0.9-2) Imaging Data Radiologist's Impression: Radiology results as stated below per my review and the radiologist's interpretation: XR chest 1V portable CLINICAL HISTORY: Sepsis dyspnea COMPARISON STUDY: No previous studies for comparison. FINDINGS: The bones soft tissues and hemidiaphragms are normal. The cardio mediastinal silhouette is normal. The lungs are clear. The pulmonary vasculature is normal. IMPRESSION: Negative chest. The above report was generated using voice recognition software. It may contain grammatical, syntax or spelling errors. Electronically signed by: Gera Zepeda M.D. 01/22/2019 1:[address] abd pelvis IV con only CT DOSE: 311.33 mGy.cm HISTORY: Pain. Nausea. lower abd pain, fever TECHNIQUE: Multiaxial CT images of the abdomen and pelvis were performed following the use of intravenous contrast. A dose lowering technique was utilized adhering to the principles of ALARA. COMPARISON STUDY: 04/16/2018 FINDINGS: Mild bibasilar interstitial change. Liver spleen and pancreas enhance uniformly. Minimal hyperplastic change of the adrenal glands. Kidneys are uniform in appearance. Slight fullness of the right as well as left renal collecting systems with slight uroepithelial thickening of the ureters and collecting systems bilaterally. Mild perinephric infiltrative change unaltered from the prior exam. Normal appendix. Nonobstructive bowel pattern. Chronic sigmoid diverticulosis. No evidence for acute diverticulitis. IMPRESSION: 1. Chronic sigmoid diverticulosis. 2. Mild prominence of the upper urinary tract uroepithelial tissues raising the possibility of pyelonephritis bilaterally. 3. Correlation with urinalysis is suggested as follow-up. 4. Normal appendix. 5. Nonobstructive bowel pattern. The above report was generated using voice recognition software. It may contain grammatical, syntax or spelling errors. Electronically signed by: Gera Zepeda M.D. 01/22/2019 2:59 PM ECG Data Attestation: I personally reviewed and interpreted this ECG as follows: Indication: vomiting Rate (beats per minute): 87 Rhythm: sinus rhythm Findings: + left axis deviation Blood Pressure Blood Pressure Findings: Low blood pressure MDM Narrative The patient is a pleasant 68 y/o woman with a pmhx of NIDDM2 who presents to the emergency department with generalized weakness after being found by family today briefly unresponsive in the setting of days of dysuria and lower abdminal pain per HPI. On arrival the patient is ill appearing but in NAD, febrile to 39.5, HR 90s and otherwise VSS. Patient appears clinically dry. She has mild lower abdominal ttp without guarding. WBC, H/H, platelets wnl. Cr 1.3, which appears to be new from 2018. Chemistry without acidosis. Phosphorus 1.5 and potassium 3.2 with repletion provided. TB and DB slightly elevated at 1.6 and 0.6, respectively. Troponin negative. LFTs and electrolytes unremarkable. UA c/w in fection. CT abd/pelvis with findings c/w pyelonephritis. Patient treated with IVF, apap, toradol as well as empiric Zosyn on arrival. Upon re-evaluation feeling improved with HR 70s. Case d/w Dr. Stoner, [facility] [place] hospitalist, who will evaluated the patient for admission. Impression & Plan Pyelonephritis, BRIANNA (acute kidney injury) Critical Care Time I have personally spent greater than 35 minutes of critical care time in the direct management of this patient. This includes bedside care, interpretation of diagnostic studies, and testing, discussion with consultants, patient, and family members, and other required patient management activities. This 35 minutes is in excess of all separately billable procedures. Critical Care Time: Yes Total Critical Care Time: 35 Discharge Plan Visit Data *Final* Discharge Date/Time: 01/22/19 16:34 Chief Complaint: Fever Stated Complaint: hyperglycemia ED Provider: Gary Hines Discharge Problem: Pyelonephritis, BRIANNA (acute kidney injury) Patient Disposition: Admitted As Inpatient Discharge Instructions Interventions: ED Discharge Assessment Last Done: 01/22/19 16:34 The scribe's documentation has been prepared under my direction and personally reviewed by me in its entirety. I confirm that the note above accurately reflects all work, treatment, procedures, and medical decision making performed by me.
[2019-01-22] MEDS ORDERED: ALUMINUM/MAGNESIUM SUSP 30 ML UDC PO PRN (17:17)
[2019-01-22] MEDS: NSS + 20MEQ KCL 20 MEQ/1,000 ML BAG IV SCH (18:38)
[2019-01-22] MEDS: ENOXAPARIN INJ 40 MG/0.4 ML SYR SQ SCH (18:38)
[2019-01-22] MEDS: FAMOTIDINE 20 MG in SYRINGE 3 ML IV SCH (18:39)
[2019-01-22] MEDS: INSULIN ASPART 100 UNITS/ML 3 ML PEN SC SCH ×2 (18:57→21:25)
[2019-01-22] MEDS: PIPERACILLIN/TAZOBACTAM 3.375 GM in DEXTROSE 5% 100 ML IV SCH (20:30)
[2019-01-22 21:05] LABS: Appearance Urine Turbid (Clear); Bacteria Urine Automated 2+ (Negative); Bilirubin Urine Negative (Negative); Blood Urine 2+ (Negative); Color Urine Dark Yellow; Epithelial Cell Urine Auto >30 /lpf (0-5); Glucose Urine UA 1+ (Negative); Ketones Urine Negative (Negative); Leukocyte Esterase Urine 2+ (Negative); Nitrite Urine Negative (Negative); Protein Urine 2+ (Negative); Specific Gravity Urine 1.042 (1.000-1.030); Urobilinogen Urine Negative (Negative); WBC Urine Automated >30 /hpf (0-5)
[2019-01-22 21:21] LABS: RBC Urine Automated >30 /hpf (0-4)
[2019-01-23] MEDS: NSS + 20MEQ KCL 20 MEQ/1,000 ML BAG IV SCH (01:15)
[2019-01-23] MEDS: PIPERACILLIN/TAZOBACTAM 3.375 GM in DEXTROSE 5% 100 ML IV SCH ×3 (03:42→20:12)
[2019-01-23] MEDS: FAMOTIDINE 20 MG in SYRINGE 3 ML IV SCH ×2 (06:16→20:15)
--- NOTE | 2019-01-23 07:48 | Family Medicine Progress Note ---
Date of Service January 23, 2019 Assessment & Plan (1) UTI (urinary tract infection): 68-year-old female with a past medical history of hypertension, diabetes mellitus found unresponsive presenting to [facility] with a 5- day history of urinary tract symptoms, not taking metformin for 2 weeks, weakness and unresponsiveness. She was diagnosed with gram-negative bacteremia and bacteriuria in addition to profound volume depletion. Patient was admitted for medical management #UTI -Currently on intravenous Zosyn. -Urine culture demonstrates E. coli, sensitivities to follow narrow antibiotics based on sensitivities #Gram Neg Bacteremia -Currently on intravenous Zosyn. -Blood culture shows gram-negative bacilli, likely E. coli, narrow antibiotics based on sensitivities #BRIANNA -Administer IV fluids. Monitor urine output. -Hold lisinopril and hydrochlorothiazide #Volume Depletion Patient was profoundly weak with AMS on presentation likely secondary to volume depletion secondary to poorly controlled diabetes secondary to not taking metformin. Patient's volume status significantly improved overnight would continue maintenance fluids for now. -Hold diuretics. -Lr @125 -3765 in 700 out yesterday #Electrolyte abnormalities: -Trend daily BMP -Replete as indicated #DM2 (diabetes mellitus, type 2): -She states she has not been taking metformin for quite some time. -Will cover with sliding scale insulin as needed -Glycemic cx placed #HTN (hypertension): -Blood pressure is borderline low on admission. -holding lisinopril for now lisinopril FENa:Clears Code Status: Code DVT PPX: Lovenox Dispo: Home pending clinical resolution (2) BRIANNA (acute kidney injury): (3) Volume depletion: (4) Hypokalemia: (5) Hypophosphatemia: (6) DM2 (diabetes mellitus, type 2): (7) HTN (hypertension): (8) DVT prophylaxis: Supervising Physician Co-Signing Physician Notes 68 year old male with hx of DM, HTN, prior UTI admitted with urinary tract infection (hematuria, dysuria, chills, decreased appetite). Reports that she is feeling much better compared to admission. No flank pain. Reports that prior to admission she was not taking her metformin +polydipsia. The metformin was giving her some GI distress. Does not think she has been on an ER or XR formulation of metformin in the past. Afebrile overnight. 1. UTI currently on zosyn. Urine culture with E. Coli. Awaiting sensitivities. 2. bacteremia. 2/2 blood cultures are growing gram negative bacilli. Presumably from urinary source. Zosyn as above. 3. BRIANNA, IVFs. Holding Lisinopril, HCTZ. 4. Hypokalemia. 5. Hypophosphatemia. 6. DM. ssi for coverage. On metformin TID at home but reports GI distress with the metformin. Has not been on XR in the past so can try XR dosing to minimize GI side effects as we get closer to discharge. She did get IV contrast on admission. 7. HTN. On Lisinopril and HCTZ, holding for soft pressures on admission. Can restart as BP improves. Subjective Patient sitting in a chair next to her bed this morning in no acute distress, her family arrived during the interview. Of note patient recently lost her and [facility] he was admitted and suddenly overnight. Patient reports a recent history of poorly controlled diabetes mellitus, not taking her medications at home. She also reports a recent increase in thirst, likely secondary to poor diabetic control. Furthermore her current presentation of urinary tract infection is likely secondary to increased sugars and poor diabetes control. Patient states that over the past week at home her urine has becoming progressively cloudier with more more symptoms of urinary tract infection. Patient's granddaughter checked on her at her house and the patient was unresponsive so she contacted her mother and together they broke down the door. The patient was then brought to [facility] for evaluation. Patient did well overnight reported that she enjoyed the night nursing staff, she is tolerating her diet, eating, voiding, stooling. There are no acute acute concerns at present, all questions were answered. Physical Exam Physical Exam: General: No acute distress HEENT: Atraumatic normocephalic Neck: Trachea midline, normal to visual inspection, did not appreciate JVD Cardiac: Regular rate and rhythm, no murmurs rubs or gallops, normal S1 normal S2 negative pedal edema good capillary refill Respiratory: Clear to auscultation bilaterally GI: Suprapubic tenderness, otherwise normal bowel sounds no tenderness to palpation MSK: Moves all extremities Skin: No rashes Neuro: Alert and oriented x4 Psych: Calm cooperative Results & Data Vital Signs (Past 12 Hours) Vital Signs Temp Pulse Resp BP Pulse Ox 01/23/19 07:35 36.5 C 52 L 20 133/79 97 01/22/19 23:00 36.5 C 50 L 18 109/68 95 Laboratory Results 01/23/19 01/23/19 01/23/19 Range/Units 12:09 07:53 07:15 WBC (4.8-10.8) K/uL RBC (4.2-5.4) M/uL Hgb (12.0-16.0) g/dL Hct (37-47) % MCV (80-100) fL MCH (25-34) pg MCHC (32-36) g/dL RDW Std Deviation (36.4-46.3) fL RDW Coeff of Billy (11.5-14.5) % Plt Count (130-400) K/uL MPV (7.4-10.4) fL Immature Gran % (Auto) % Neut % (Auto) % Lymph % (Auto) % Grant % (Auto) % Eos % (Auto) % Baso % (Auto) % Immature Gran # (Auto) (0.00-0.02) K/uL Neut # (Auto) (1.4-6.5) K/uL Lymph # (Auto) (1.2-3.4) K/uL Grant # (Auto) (0.11-0.59) K/uL Eos # (Auto) (0-0.5) K/uL Baso # (Auto) (0-0.2) K/uL PT (9.0-12.0) Seconds INR (0.9-1.1) APTT (21.0-31.0) Seconds PTT Ratio VBG pH (7.36-7.41) VBG pCO2 (38-50) mmHg VBG pO2 mmHg VBG HCO3 mmol/L VBG O2 Saturation % VBG Base Excess mEq/L Barometric Pressure mm/Hg Sodium 147 H D (136-145) mmol/L Potassium 5.6 H D (3.5-5.1) mmol/L Chloride 121 H (98-107) mmol/L Carbon Dioxide 21 (21-32) mmol/L Anion Gap 5.0 (3-11) BUN 16 (7-18) mg/dl Creatinine 1.05 (0.6-1.2) mg/dl Est Cr Clr Drug Dosing 49.9 ml/min Est GFR ( Amer) 63.2 Est GFR (Non-Af Amer) 54.5 BUN/Creatinine Ratio 15.0 (10-20) Glucose 94 (70-99) mg/dl POC Glucose 158 H 109 H (70-99) Lactate (0.4-2.0) mmol/L Calcium 7.3 L D (8.5-10.1) mg/dl Phosphorus 2.5 D (2.5-4.9) mg/dl Urine Color Urine Appearance (Clear) Urine pH (4.5-7.5) Ur Specific Julian (1.000-1.030) Urine Protein (Negative) Urine Glucose (UA) (Negative) Urine Ketones (Negative) Urine Blood (Negative) Urine Nitrite (Negative) Urine Bilirubin (Negative) Urine Urobilinogen (Negative) Ur Leukocyte Esterase (Negative) Urine WBC (Auto) (0-5) /hpf Urine RBC (Auto) (0-4) /hpf U Hyaline Cast (Auto) (0-5) /lpf U Epithel Cells (Auto) (0-5) /lpf Urine Bacteria (Auto) (Negative) Urine Yeast 01/23/19 01/22/19 01/22/19 Range/Units 07:15 20:52 20:46 WBC 5.98 (4.8-10.8) K/uL RBC 3.67 L (4.2-5.4) M/uL Hgb 11.2 L D (12.0-16.0) g/dL Hct 32.4 L (37-47) % MCV 88.3 (80-100) fL MCH 30.5 (25-34) pg MCHC 34.6 (32-36) g/dL RDW Std Deviation 47.4 H (36.4-46.3) fL RDW Coeff of Billy 14.5 (11.5-14.5) % Plt Count 110 L (130-400) K/uL MPV 10.2 (7.4-10.4) fL Immature Gran % (Auto) 0.3 % Neut % (Auto) 71.4 % Lymph % (Auto) 17.7 % Grant % (Auto) 8.9 % Eos % (Auto) 1.2 % Baso % (Auto) 0.5 % Immature Gran # (Auto) 0.02 (0.00-0.02) K/uL Neut # (Auto) 4.27 (1.4-6.5) K/uL Lymph # (Auto) 1.06 L (1.2-3.4) K/uL Grant # (Auto) 0.53 (0.11-0.59) K/uL Eos # (Auto) 0.07 (0-0.5) K/uL Baso # (Auto) 0.03 (0-0.2) K/uL PT (9.0-12.0) Seconds INR (0.9-1.1) APTT (21.0-31.0) Seconds PTT Ratio VBG pH (7.36-7.41) VBG pCO2 (38-50) mmHg VBG pO2 mmHg VBG HCO3 mmol/L VBG O2 Saturation % VBG Base Excess mEq/L Barometric Pressure mm/Hg Sodium (136-145) mmol/L Potassium (3.5-5.1) mmol/L Chloride (98-107) mmol/L Carbon Dioxide (21-32) mmol/L Anion Gap (3-11) BUN (7-18) mg/dl Creatinine (0.6-1.2) mg/dl Est Cr Clr Drug Dosing ml/min Est GFR ( Amer) Est GFR (Non-Af Amer) BUN/Creatinine Ratio (10-20) Glucose (70-99) mg/dl POC Glucose 233 H (70-99) Lactate (0.4-2.0) mmol/L Calcium (8.5-10.1) mg/dl Phosphorus (2.5-4.9) mg/dl Urine Color Dark Yellow Urine Appearance Turbid A (Clear) Urine pH 5.0 (4.5-7.5) Ur Specific Julian 1.042 H (1.000-1.030) Urine Protein 2+ H (Negative) Urine Glucose (UA) 1+ H (Negative) Urine Ketones Negative (Negative) Urine Blood 2+ H (Negative) Urine Nitrite Negative (Negative) Urine Bilirubin Negative (Negative) Urine Urobilinogen Negative (Negative) Ur Leukocyte Esterase 2+ H (Negative) Urine WBC (Auto) >30 H (0-5) /hpf Urine RBC (Auto) >30 H (0-4) /hpf U Hyaline Cast (Auto) 1-5 (0-5) /lpf U Epithel Cells (Auto) >30 H (0-5) /lpf Urine Bacteria (Auto) 2+ H (Negative) Urine Yeast Not Reportable 01/22/19 01/22/19 01/22/19 Range/Units 17:14 13:46 13:46 WBC (4.8-10.8) K/uL RBC (4.2-5.4) M/uL Hgb (12.0-16.0) g/dL Hct (37-47) % MCV (80-100) fL MCH (25-34) pg MCHC (32-36) g/dL RDW Std Deviation (36.4-46.3) fL RDW Coeff of Billy (11.5-14.5) % Plt Count (130-400) K/uL MPV (7.4-10.4) fL Immature Gran % (Auto) % Neut % (Auto) % Lymph % (Auto) % Grant % (Auto) % Eos % (Auto) % Baso % (Auto) % Immature Gran # (Auto) (0.00-0.02) K/uL Neut # (Auto) (1.4-6.5) K/uL Lymph # (Auto) (1.2-3.4) K/uL Grant # (Auto) (0.11-0.59) K/uL Eos # (Auto) (0-0.5) K/uL Baso # (Auto) (0-0.2) K/uL PT 12.9 H (9.0-12.0) Seconds INR 1.3 H (0.9-1.1) APTT 30.4 (21.0-31.0) Seconds PTT Ratio 1.1 VBG pH 7.46 H (7.36-7.41) VBG pCO2 32 L (38-50) mmHg VBG pO2 52 mmHg VBG HCO3 22 mmol/L VBG O2 Saturation 88.0 % VBG Base Excess -0.8 mEq/L Barometric Pressure 733.0 mm/Hg Sodium (136-145) mmol/L Potassium (3.5-5.1) mmol/L Chloride (98-107) mmol/L Carbon Dioxide (21-32) mmol/L Anion Gap (3-11) BUN (7-18) mg/dl Creatinine (0.6-1.2) mg/dl Est Cr Clr Drug Dosing ml/min Est GFR ( Amer) Est GFR (Non-Af Amer) BUN/Creatinine Ratio (10-20) Glucose (70-99) mg/dl POC Glucose 211 H (70-99) Lactate (0.4-2.0) mmol/L Calcium (8.5-10.1) mg/dl Phosphorus (2.5-4.9) mg/dl Urine Color Urine Appearance (Clear) Urine pH (4.5-7.5) Ur Specific Julian (1.000-1.030) Urine Protein (Negative) Urine Glucose (UA) (Negative) Urine Ketones (Negative) Urine Blood (Negative) Urine Nitrite (Negative) Urine Bilirubin (Negative) Urine Urobilinogen (Negative) Ur Leukocyte Esterase (Negative) Urine WBC (Auto) (0-5) /hpf Urine RBC (Auto) (0-4) /hpf U Hyaline Cast (Auto) (0-5) /lpf U Epithel Cells (Auto) (0-5) /lpf Urine Bacteria (Auto) (Negative) Urine Yeast 01/22/19 Range/Units 13:46 WBC (4.8-10.8) K/uL RBC (4.2-5.4) M/uL Hgb (12.0-16.0) g/dL Hct (37-47) % MCV (80-100) fL MCH (25-34) pg MCHC (32-36) g/dL RDW Std Deviation (36.4-46.3) fL RDW Coeff of Billy (11.5-14.5) % Plt Count (130-400) K/uL MPV (7.4-10.4) fL Immature Gran % (Auto) % Neut % (Auto) % Lymph % (Auto) % Grant % (Auto) % Eos % (Auto) % Baso % (Auto) % Immature Gran # (Auto) (0.00-0.02) K/uL Neut # (Auto) (1.4-6.5) K/uL Lymph # (Auto) (1.2-3.4) K/uL Grant # (Auto) (0.11-0.59) K/uL Eos # (Auto) (0-0.5) K/uL Baso # (Auto) (0-0.2) K/uL PT (9.0-12.0) Seconds INR (0.9-1.1) APTT (21.0-31.0) Seconds PTT Ratio VBG pH (7.36-7.41) VBG pCO2 (38-50) mmHg VBG pO2 mmHg VBG HCO3 mmol/L VBG O2 Saturation % VBG Base Excess mEq/L Barometric Pressure mm/Hg Sodium (136-145) mmol/L Potassium (3.5-5.1) mmol/L Chloride (98-107) mmol/L Carbon Dioxide (21-32) mmol/L Anion Gap (3-11) BUN (7-18) mg/dl Creatinine (0.6-1.2) mg/dl Est Cr Clr Drug Dosing ml/min Est GFR ( Amer) Est GFR (Non-Af Amer) BUN/Creatinine Ratio (10-20) Glucose (70-99) mg/dl POC Glucose (70-99) Lactate 1.2 (0.4-2.0) mmol/L Calcium (8.5-10.1) mg/dl Phosphorus (2.5-4.9) mg/dl Urine Color Urine Appearance (Clear) Urine pH (4.5-7.5) Ur Specific Julian (1.000-1.030) Urine Protein (Negative) Urine Glucose (UA) (Negative) Urine Ketones (Negative) Urine Blood (Negative) Urine Nitrite (Negative) Urine Bilirubin (Negative) Urine Urobilinogen (Negative) Ur Leukocyte Esterase (Negative) Urine WBC (Auto) (0-5) /hpf Urine RBC (Auto) (0-4) /hpf U Hyaline Cast (Auto) (0-5) /lpf U Epithel Cells (Auto) (0-5) /lpf Urine Bacteria (Auto) (Negative) Urine Yeast Medications Administered Current Inpatient Medications Acetaminophen (Tylenol) 650 mg PO Q4H PRN PRN Reason: pain/fever Stop: 02/21/19 17:16 Al Hydrox/Mg Hydrox/Simethicone (Maalox) 30 ml PO Q6H PRN PRN Reason: Dyspepsia Stop: 02/21/19 17:16 Enoxaparin Sodium (Lovenox) 40 mg SQ Q24H JENNY Stop: 02/21/19 18:29 Last Admin: 01/22/19 18:38 Dose: 40 mg Documented by: Famotidine 20 mg/ Syringe 5 mls @ 2.5 mls/min IV Q12H JENNY Stop: 02/21/19 18:29 Last Admin: 01/23/19 06:16 Dose: 2.5 mls/min Documented by: Piperacillin Sod/Tazobactam (Sod 3.375 gm/ Dextrose) 115 mls @ 28.75 mls/hr IV Q8H [facility]; Protocol Stop: 02/01/19 19:59 Last Admin: 01/23/19 14:00 Dose: 28.8 mls/hr Documented by: Lactated Ringer's (Lr) 1,000 mls @ 125 mls/hr IV .Q8H [facility] Stop: 02/22/19 07:59 Last Admin: 01/23/19 09:45 Dose: 125 mls/hr Documented by: Insulin Aspart (Novolog Flexpen) 0 units SC ACHS [facility]; Protocol Stop: 02/21/19 17:16 Last Admin: 01/23/19 13:56 Dose: 3 units Documented by: Ioversol (Optiray 320 100ml) 94 ml IV ONCE PRN PRN Reason: Interaction Checking Stop: 01/26/19 14:36 Last Admin: 01/22/19 14:37 Dose: 94 ml Documented by: Miscellaneous Information (Consult) 1 ea N/A UD PRN PRN Reason: Consult Stop: 02/21/19 17:16 Miscellaneous Information (Consult Glycemic Management Pharmacy) 1 ea N/A UD PRN PRN Reason: Consult Stop: 02/22/19 08:30 Pantoprazole Sodium (Protonix) 40 mg PO DAILY EJNNY Stop: 02/22/19 08:59 Last Admin: 01/23/19 09:46 Dose: 40 mg Documented by: Rosuvastatin Calcium (Crestor) 40 mg PO DAILY [facility] Stop: 02/22/19 08:59 Last Admin: 01/23/19 09:46 Dose: 40 mg Documented by: Resident Activity Tracking Resident Involvement: Resident Care Provided Care Provided: Adult Hospital Medicine (1) UTI (urinary tract infection) Urinary tract infection type: site unspecified
[2019-01-23 07:54] LABS: Basophils # (auto) 0.03 K/uL (0-0.2); Basophils % (auto) 0.5 %; Eosinophils # (auto) 0.07 K/uL (0-0.5); Eosinophils % (auto) 1.2 %; Hematocrit (blood only) 32.4 % (37-47); Hemoglobin 11.2 g/dL (12.0-16.0); Immature Granulocytes # (auto) 0.02 K/uL (0.00-0.02); Immature Granulocytes % (auto) 0.3 %; Lymphocytes # (auto) 1.06 K/uL (1.2-3.4); Lymphocytes % (auto) 17.7 %; Mean Corpuscular Hgb Conc 34.6 g/dL (32-36); Mean Corpuscular Volume 88.3 fL (80-100); Mean Platelet Volume 10.2 fL (7.4-10.4); Monocytes # (auto) 0.53 K/uL (0.11-0.59); Monocytes % (auto) 8.9 %; Neutrophils # (auto) 4.27 K/uL (1.4-6.5); Neutrophils % (auto) 71.4 %; Platelet Count 110 K/uL (130-400); RDW Coefficient of Variation 14.5 % (11.5-14.5); RDW Standard Deviation 47.4 fL (36.4-46.3); Red Blood Count 3.67 M/uL (4.2-5.4); White Blood Count 5.98 K/uL (4.8-10.8)
[2019-01-23 08:30] LABS: Calcium 7.3 mg/dl (8.5-10.1); Creatinine Clr Calc Pharmacy 49.9 ml/min; Est GFR (African American) 63.2; Est GFR (Non-African American) 54.5; Phosphorus 2.5 mg/dl (2.5-4.9); Potassium 5.6 mmol/L (3.5-5.1)
[2019-01-23] MEDS ORDERED: PHARMACY GLYCEMIC MGMT CONSULT PRN ×2 (08:31→14:26)
[2019-01-23] MEDS: LACTATED RINGER'S 1,000 ML IV SCH ×3 (09:45→23:53)
[2019-01-23] MEDS: ROSUVASTATIN CALCIUM 20 MG TAB PO SCH (09:46)
[2019-01-23] MEDS: PANTOprazole 40 MG TAB PO SCH (09:46)
[2019-01-23] MEDS: INSULIN ASPART 100 UNITS/ML 3 ML PEN SC SCH ×4 (09:49→20:08)
--- NOTE | 2019-01-23 11:11 | Pharmacy Report ---
Glycemic Control Consultation - Date of Service January 23, 2019 - Scope Scope: Glycemic Pharmacist consulted by Dr Fay Pineda on 01/23/19 for glycemic control and to write orders per [facility] inpatient glycemic control protocol - Objective Weight: 65 kg Accuchecks BSG (last 24hrs): 01/22/19 01/22/19 01/22/19 12:00 12:55 17:14 Glucose 168 H POC Glucose 196 H 211 H 01/22/19 01/23/19 01/23/19 20:46 07:15 07:53 Glucose 94 POC Glucose 233 H 109 H Laboratory Data (last 24hrs): 01/22/19 01/23/19 12:00 07:15 Potassium 3.2 L 5.6 H D Carbon Dioxide 22 21 Anion Gap 12.0 H 5.0 Creatinine 1.33 H 1.05 Est Cr Clr Drug Dosing Not Reportable 49.9 HbA1c: ordered for 01/24/19 - Recent Pertinent Medications Outpatient Anti-diabetic Regimen: * Metformin 1,000mg PO AM + 500mg PO PM Risk Factors for Insulin Resistance: * Infection * Diet * PO antidiabetic medications on hold secondary to contrast administration - Assessment & Plan Assessment & Plan: ASSESSMENT: * Pt is maintained on oral antidiabetic agents as an outpatient * Oral agents are not recommended for inpatient use d/t drug interactions, changing PO intake, and difficulty titrating for acute hyper/hypoglycemia. ADA recommends re-initiating outpatient oral agents 1-2 days prior to discharge if/when appropriate if they were held on admission. * Will hold oral agents for admission and utilize SQ basal bolus insulin regimen which is the recommended regimen for inpatient glycemic control. * Will initiate weight based insulin dosing for insulin vitaly patient and titrate based on BSG trends. * Pt with hyperglycemia last evening seconday to infection and oral antidiabetic agent on hold (metformin ordered on admission but placed on hold x 48hrs for contrast). Pt was ordered a novolog bolus insulin scale but unsure of why insulin was held at dinnertime - this caused a rebound hyperglycemic event. * Current NovoLog parameters are adequate. Will adjust only if needed * basal insulin may not be needed based on HS --> AM bg drop of 233 -->109 mg/dl. Pt did receive correctional insulin with NovoLog at HS but most likely endogenous overnight insulin secretion is adequate. Will add basal if AM fasting >140 mg/dl. PLAN FOR INPATIENT GLYCEMIC CONTROL: * Holding outpatient oral diabetes medications * Basal insulin * Not indicated at this time * Bolus insulin * NovoLog per scale ACHS or Q6hrs while NPO * Goal Range: Low 100 mg/dL - High 140 mg/dL * Correction Factor: 30 mg/dL/unit * Nutritional / Prandial insulin per carb ratio of 1 unit per 10 grams CHO consumed * A1c ordered for 01/24/19 * Please note that the plan above was derived based on current level of insulin resistance and hospital stress. These recommendations are appropriate for inpatient admission only. Plan of care upon discharge will need to be reassessed to avoid potential outpatient hypo/hyperglycemia. Thank you.
[2019-01-23] MEDS: ENOXAPARIN INJ 40 MG/0.4 ML SYR SQ SCH (18:08)
[2019-01-24] MEDS: PIPERACILLIN/TAZOBACTAM 3.375 GM in DEXTROSE 5% 100 ML IV SCH ×3 (03:36→20:41)
[2019-01-24] MEDS: FAMOTIDINE 20 MG in SYRINGE 3 ML IV SCH ×2 (05:49→17:46)
[2019-01-24 06:06] LABS: Basophils # (auto) 0.02 K/uL (0-0.2); Basophils % (auto) 0.3 %; Eosinophils # (auto) 0.04 K/uL (0-0.5); Eosinophils % (auto) 0.7 %; Hematocrit (blood only) 31.2 % (37-47); Hemoglobin 10.6 g/dL (12.0-16.0); Immature Granulocytes # (auto) 0.02 K/uL (0.00-0.02); Immature Granulocytes % (auto) 0.3 %; Lymphocytes # (auto) 1.06 K/uL (1.2-3.4); Lymphocytes % (auto) 17.7 %; Mean Corpuscular Volume 88.9 fL (80-100); Mean Platelet Volume 10.6 fL (7.4-10.4); Monocytes # (auto) 0.39 K/uL (0.11-0.59); Monocytes % (auto) 6.5 %; Neutrophils # (auto) 4.47 K/uL (1.4-6.5); Neutrophils % (auto) 74.5 %; Platelet Count 108 K/uL (130-400); RDW Coefficient of Variation 14.5 % (11.5-14.5); Red Blood Count 3.51 M/uL (4.2-5.4)
[2019-01-24 06:39] LABS: BUN Creatinine Ratio 12.1 (10-20); Calcium 8.6 mg/dl (8.5-10.1); Creatinine Clr Calc Pharmacy 51.3 ml/min; Est GFR (African American) 65.5; Est GFR (Non-African American) 56.5; Phosphorus 1.9 mg/dl (2.5-4.9); Potassium 3.3 mmol/L (3.5-5.1)
[2019-01-24] MEDS: LACTATED RINGER'S 1,000 ML IV SCH (07:36)
[2019-01-24] MEDS: PANTOprazole 40 MG TAB PO SCH (07:37)
[2019-01-24] MEDS: ROSUVASTATIN CALCIUM 20 MG TAB PO SCH (07:37)
[2019-01-24] MEDS ORDERED: POTASSIUM PHOS 3 MMOL/1 ML INFUSION IV ONE (08:03)
[2019-01-24] MEDS ORDERED: POTASSIUM PHOSPHATE 21 MMOL in SODIUM CHLORIDE 0.9% 500 ML IV ONE (08:30)
[2019-01-24] MEDS ORDERED: MAGNESIUM OXIDE 400 MG TAB PO ONE (08:30)
[2019-01-24] MEDS: INSULIN ASPART 100 UNITS/ML 3 ML PEN SC SCH ×4 (08:36→20:49)
[2019-01-24 09:08] LABS: Estimated Average Glucose 143 mg/dl; Hemoglobin A1C 6.6 % (4.5-5.6)
[2019-01-24] MEDS: ONDANSETRON INJ 2 MG/ML 2 ML VIAL IV PRN (12:35)
[2019-01-24] MEDS: LISINOPRIL/HCTZ 20/12.5MG 1 TAB TAB PO SCH (14:13)
--- NOTE | 2019-01-24 14:40 | Family Medicine Progress Note ---
Date of Service January 24, 2019 Assessment & Plan (1) UTI (urinary tract infection): 68-year-old female with a past medical history of hypertension, diabetes mellitus found unresponsive presenting to [facility] with a 5- day history of urinary tract symptoms, not taking metformin for 2 weeks, weakness and unresponsiveness. She was diagnosed with gram-negative bacteremia and bacteriuria in addition to profound volume depletion. Patient was admitted for medical management. Urosepsis -Currently on intravenous Zosyn. -Urine culture demonstrates E. coli, resistant to Amp/Sulb and cefazolin - BC positive for GNR speciation/sensitivities pending - Continue IV Zosyn - Will require 7-14 days of antibiotics. Will consult ID once sensitivities are resulted to assess if patient would be a candidate for oral conversion vs PICC infusions. BRIANNA 2/2 prerenal volume depletion, Resolved - Improved with IVF. Received 9 liters of fluid resuscitation in the past 24 hours, likely prerenal azotemia vs BRIANNA. - Pressures mildly hypertensive today, IVFM stopped and restarted [employer] lisinopril and hydrochlorothiazide Electrolyte abnormalities: -Trend daily BMP -Replete as indicated DM2 (diabetes mellitus, type 2): -She states she has not been taking metformin at home - A1C = 6.6%, reflects decent control although suspect her recent decompensation was over the last two weeks in the setting of acute stress in the setting of her passing. -Glycemic cx placed, has been receiving 2-4 U SSI with good control HTN (hypertension): - Hctz/lisinopril restarted as above Diet: DM2/Carb Consistent Code Status: Full Code DVT PPX: Lovenox 40mg sq daily Dispo: Likely home. Pending decision of Abx regimen. Supervising Physician Co-Signing Physician Notes I personally examined the patient and verified all reyes points of history and exam, discussed case, and agree with decision making with Dr Cervantes. feeling ok. just bored. waiting on final sensitivities on cultures. vitals noted nad breathing unlabored no pallor or icterus gram negative bacteremia- most likley will match E Coli in urine - waiting on final ID&S. meets new black box warning concerns for aneurysm w quinolones. will have to consider ongoing IV vs possible efficacy of PO once final sensitivities are back - may need ID expertise about ?if PO would be viable. DVT proph - lovenox otherwise doing well. as above. Subjective Quiana reports that she "just does not feel right "she feels a little nauseous, and a little bit worse today than she did previously. She endorses feelings of weakness and overall unwellness. Denies fever, chills, sweats overnight. She is not short of breath, and does not have difficulty breathing. No chest pain. No questions or concerns at time of visit. Review of Systems Review of Systems: Constitutional: Denies fever, chills. Endorses fa tigue/malaise Eyes: Denies double vision, vision change, eye pain ENT: Denies ear pain, sore throat, sinus pain Cardiovascular: Denies Chest pain, chest pressure, palpitations, extremity swelling Respiratory: Denies shortness of breath, cough, sputum production, difficulty breathing Gastrointestinal: Endorses nausea and mild diffuse abdominal pain. Denies vomiting, constipation, diarrhea Genitourinary: Denies pain with urination, urinary urgency, urinary frequency today Musculoskeletal: Denies muscle aches/pain, joint aches/pain. Endorses weakness. Integumentary:Denies rash, lesions, bruising Neurological: Denies headache, numbness, tingling Physical Exam Physical Exam: General: A&Ox3. NAD. Cooperative. HEENT: Atraumatic, normocephalic. Pulm: CTAB A&P. -wheezes, -rales, -rhonchi. Symmetrical chest rise. No increase work of breathing. No respiratory distress. Cardiac: RRR, -mrg. Radial pulses intact and symmetrical. Abdominal: Uncomfortable with palpation, but denies pain. Softly distended. BS present. Results & Data Vital Signs (Past 12 Hours) Vital Signs Temp Pulse Resp BP Pulse Ox 01/24/19 08:05 37.3 C 67 20 157/71 H 91 01/23/19 23:00 37.1 C 73 19 152/80 H 94 Resident Activity Tracking Resident Involvement: Resident Care Provided Care Provided: Adult Hospital Medicine (1) UTI (urinary tract infection) Urinary tract infection type: site unspecified
[2019-01-24] MEDS: ACETAMINOPHEN 325 MG TAB PO PRN (15:58)
[2019-01-24] MEDS ORDERED: METFORMIN HCL 500 MG TAB PO SCH (16:30)
[2019-01-24] MEDS: ENOXAPARIN INJ 40 MG/0.4 ML SYR SQ SCH (17:43)
[2019-01-24] MEDS ORDERED: MAGNESIUM OXIDE 400 MG TAB PO SCH (21:00)
[2019-01-25] MEDS: ACETAMINOPHEN 325 MG TAB PO PRN (00:01)
[2019-01-25] MEDS: PIPERACILLIN/TAZOBACTAM 3.375 GM in DEXTROSE 5% 100 ML IV SCH (04:14)
[2019-01-25] MEDS: FAMOTIDINE 20 MG in SYRINGE 3 ML IV SCH (06:10)
[2019-01-25 06:51] LABS: Basophils # (auto) 0.02 K/uL (0-0.2); Basophils % (auto) 0.3 %; Eosinophils # (auto) 0.04 K/uL (0-0.5); Eosinophils % (auto) 0.6 %; Hematocrit (blood only) 33.7 % (37-47); Hemoglobin 11.6 g/dL (12.0-16.0); Immature Granulocytes # (auto) 0.03 K/uL (0.00-0.02); Immature Granulocytes % (auto) 0.4 %; Lymphocytes # (auto) 1.26 K/uL (1.2-3.4); Lymphocytes % (auto) 18.1 %; Mean Corpuscular Hgb Conc 34.4 g/dL (32-36); Mean Corpuscular Volume 87.8 fL (80-100); Mean Platelet Volume 9.8 fL (7.4-10.4); Monocytes # (auto) 0.47 K/uL (0.11-0.59); Monocytes % (auto) 6.7 %; Neutrophils # (auto) 5.16 K/uL (1.4-6.5); Neutrophils % (auto) 73.9 %; Platelet Count 139 K/uL (130-400); RDW Coefficient of Variation 14.4 % (11.5-14.5); RDW Standard Deviation 46.5 fL (36.4-46.3); Red Blood Count 3.84 M/uL (4.2-5.4); White Blood Count 6.98 K/uL (4.8-10.8)
[2019-01-25 07:25] LABS: BUN Creatinine Ratio 7.8 (10-20); Calcium 8.4 mg/dl (8.5-10.1); Creatinine Clr Calc Pharmacy 46.8 ml/min; Est GFR (African American) 58.5; Est GFR (Non-African American) 50.4; Potassium 3.3 mmol/L (3.5-5.1)
[2019-01-25 07:26] LABS: Phosphorus 2.6 mg/dl (2.5-4.9)
[2019-01-25] MEDS: ONDANSETRON INJ 2 MG/ML 2 ML VIAL IV PRN (08:11)
[2019-01-25] MEDS: ROSUVASTATIN CALCIUM 20 MG TAB PO SCH (09:26)
[2019-01-25] MEDS: PANTOprazole 40 MG TAB PO SCH (09:26)
[2019-01-25] MEDS: LISINOPRIL/HCTZ 20/12.5MG 1 TAB TAB PO SCH (09:26)
[2019-01-25] MEDS: INSULIN ASPART 100 UNITS/ML 3 ML PEN SC SCH ×2 (09:27→12:28)
[2019-01-25] MEDS: POTASSIUM CHLORIDE 20 MEQ TABCR PO SCH ×2 (09:42→12:29)
--- NOTE | 2019-01-25 10:21 | Infectious Disease Consult ---
Date of Consultation January 25, 2019 Assessment & Plan (1) E. coli septicemia: 68-year-old diabetic female with E. coli sepsis with probable pyelonephritis, responding well to IV antibiotics. I think at this point she could be considered for transition to oral antibiotics and recommend Omnicef 300 mg twice daily. Would consider giving single dose of ceftriaxone 2 g prior to discharge to allow 24 hours of further IV coverage. Will discuss. (2) Pyelonephritis: History of Present Illness Reason for Consultation: E. coli bacteremia 2/,? Conversion to p.o. antibiotics Attending Physician: Henry Gong DO History of Present Illness 68-year-old female with history of type 2 diabetes mellitus, hypertension, who 1 week prior to admission began to note severe dysuria and hematuria which progressively worsened, then associated with fever and shaking and then she was found at home poorly responsive and transferred to the hospital. She was found to have sepsis and blood cultures have now grown a relatively sensitive E. coli. Urine also positive for E. coli. Patient has been on Zosyn with improvement. CT scan, read by me, shows evidence of early pyelonephritis. Has been afebrile with normal white count. Complaining of minimal right sided back pain. No further dysuria or hematuria. Allergies Allergy/AdvReac Type Severity Reaction Status Date / Time oxycodone AdvReac Intermediate "MAKES ME Unverified 01/22/19 14:23 SICK" Home Medications Home Medications Medication Instructions Recorded Confirmed Type dexlansoprazole [Dexilant] 60 mg PO DAILY 01/22/19 01/22/19 History lisinopril-hydrochlorothiazide 1 tab PO DAILY 01/22/19 01/22/19 History metformin 1,000 mg PO QAM 01/22/19 01/22/19 History metformin 500 mg PO QPM 01/22/19 01/22/19 History naproxen sodium [Aleve] 220 mg PO UD PRN 01/22/19 01/22/19 History rosuvastatin 40 mg PO DAILY 01/22/19 01/22/19 History Patient History Medical History DVT prophylaxis HTN (hypertension) DM2 (diabetes mellitus, type 2) Hypophosphatemia (Acute) Hypokalemia (Acute) Volume depletion (Acute) BRIANNA (acute kidney injury) (Acute) Diabetes No significant active problems No significant family history No significant past medical history No significant past surgical history Social History Preferred Language: Algerian Communication Ability: Effective Pearl Cutter Required: No Beliefs That Will Affect Care: None Current Living Situation: Alone Other Information That Helps Us Care for You: No Feels Safe at Home: Yes Smoking Status: Current every day smoker Tobacco Type: cigarettes Cigarettes Per Day: 20 Do You Dip or Chew Tobacco: No Second Hand Exposure: No Tobacco Cessation Education Requested by Patient: No Hx Alcohol Use: No Hx Substance Use: No Review of Systems Review of Systems: All systems reviewed & are unremarkable except as noted in HPI & below Physical Exam Constitutional: WD/WN, vitals as above comfortable; no acute distress Eyes: PERRL, conjunctivae normal, anicteric sclerae ENMT: external ear and nose normal, oropharynx normal Neck: trachea midline, no thyromegaly neck nontender Respiratory: normal respiratory effort, lungs clear to auscultation normal percussion; does not use accessory muscles Cardiovascular: Rate/Rhythm: regular rate and regular rhythm Heart Sounds: normal S1 and normal S2; no gallop, no murmur and no cardiac rub Vessels: normal peripheral pulses; no JVD Gastrointestinal (Abdomen): normal bowel sounds, soft, nontender, no hep atosplenomegaly Musculoskeletal: no cyanosis or clubbing, extremities motor strength 5/5 Spine: thoracic spine normal to inspection and lumbar spine normal to inspection; no cervical spinal tenderness Skin: no rashes, warm and dry normal turgor; no lesions Neurologic: patellar DTR's 2+ bilat, sensation intact no focal motor deficits Psychiatric: A+Ox3, euthymic affect Orientation: cooperative Lymphatic: no cervical or axillary lymphadenopathy no inguinal lymphadenopathy Results & Data Vital Signs (Past 12 Hours) Vital Signs Temp Pulse Resp BP Pulse Ox 01/25/19 07:14 36.9 C 52 L 20 150/80 H 95 01/24/19 23:40 37.4 C 74 20 157/61 H 90 Laboratory Results Short CBC 01/25/19 Range/Units 06:28 WBC 6.98 (4.8-10.8) K/uL Hgb 11.6 L (12.0-16.0) g/dL Hct 33.7 L (37-47) % Plt Count 139 (130-400) K/uL BMP 01/25/19 06:28 Sodium 140 Potassium 3.3 L Chloride 108 H Carbon Dioxide 26 BUN 9 Creatinine 1.12 Glucose 109 H Calcium 8.4 L Diagnostic Findings Microbiology 01/22/19 13:26 Blood Aerobic Blood Culture - Preliminary No growth in Aerobic bottle after 48 hours. 01/22/19 13:26 Blood Anaerobic Blood Culture - Preliminary Escherichia coli 01/22/19 13:46 Blood Aerobic Blood Culture - Preliminary No growth in Aerobic bottle after 48 hours. 01/22/19 13:46 Blood Anaerobic Blood Culture - Preliminary Gram negative bacilli 01/22/19 20:52 Urine,Clean Catch Urine Culture - Final Escherichia coli CT abd pelvis IV con only CT DOSE: 311.33 mGy.cm HISTORY: Pain. Nausea. lower abd pain, fever TECHNIQUE: Multiaxial CT images of the abdomen and pelvis were performed following the use of intravenous contrast. A dose lowering technique was utilized adhering to the principles of ALARA. COMPARISON STUDY: 04/16/2018 FINDINGS: Mild bibasilar interstitial change. Liver spleen and pancreas enhance uniformly. Minimal hyperplastic change of the adrenal glands. Kidneys are uniform in appearance. Slight fullness of the right as well as left renal collecting systems with slight uroepithelial thickening of the ureters and collecting systems bilaterally. Mild perinephric infiltrative change unaltered from the prior exam. Normal appendix. Nonobstructive bowel pattern. Chronic sigmoid diverticulosis. No evidence for acute diverticulitis. IMPRESSION: 1. Chronic sigmoid diverticulosis. 2. Mild prominence of the upper urinary tract uroepithelial tissues raising the possibility of pyelonephritis bilaterally. 3. Correlation with urinalysis is suggested as follow-up. 4. Normal appendix. 5. Nonobstructive bowel pattern. The above report was generated using voice recognition software. It may contain grammatical, syntax or spelling errors. Electronically signed by: Gera Zepeda M.D. 01/22/2019 2:59 PM
[2019-01-25] MEDS ORDERED: cefTRIAXone SODIUM 2,000 MG in DEXTROSE 5% 50 ML IV ONE (12:00)
--- NOTE | 2019-01-25 12:00 | Discharge Summary ---
Date of Service January 25, 2019 Admission HPI Per Admitting Provider 68-year-old female with several days of UTI symptoms consisting of hematuria, dysuria, chills. She has not been eating well. The family members found her today with altered mental status and she was brought to the ED for evaluation. She has evidence of urinary tract infection with volume depletion and acute kidney injury. There is possible early pyelonephritis on CT scan but this is not definitive in my opinion. She is mildly hypokalemic and mildly hypophosphatemic. Creatinine is elevated at 1.3. Chest x-ray negative. At the time of my examination she has been given intravenous fluids and antibiotics and is alert and oriented and she does have epigastric and lower mid abdominal discomfort. Otherwise bowels are soft and nondistended with active bowel sounds. She was informed that her lisinopril and hydrochlorothiazide will be held. Metformin will also be held. Potassium and phosphorus replacement were given in the ED. She will be admitted for further evaluation and treatment. Admission Exam Per Admitting Provider Constitutional: + thin; no acute distress Eyes: PERRL, conjunctivae normal, anicteric sclerae ENMT: external ear and nose normal, oropharynx normal Neck: trachea midline, no thyromegaly Respiratory: normal respiratory effort, lungs clear to auscultation Cardiovascular: RRR, no murmur, no edema Gastrointestinal (Abdomen): Inspection/Auscultation: abdomen normal to inspection and normal bowel sounds; abdomen not distended Percussion/Palpation: + abdomen tender (Mildly tender in the epigastric region and suprapubic area) and abdomen soft; no guarding, abdomen not rigid and no ascites Musculoskeletal: no cyanosis or clubbing, extremities motor strength 5/5 Skin: no rashes, warm and dry Neurologic: CN's II-XI intact bilaterally and moves all extremities; no focal motor deficits Principal Diagnosis Sepsis with UTI Discharge Exam General: A&Ox3. NAD. Cooperative. HEENT: Atraumatic, normocephalic. Pulm: CTAB A&P. -wheezes, -rales, -rhonchi. Symmetrical chest rise. No increase work of breathing. No respiratory distress. Cardiac: RRR, -mrg. Radial pulses intact and symmetrical. Abdominal: NT. Softly distended. BS present. Discharge Data Allergies Allergy/AdvReac Type Severity Reaction Status Date / Time oxycodone AdvReac Intermediate "MAKES ME Unverified 01/22/19 14:23 SICK" Consultations 01/22/19 15:21 ED Decision to Admit Stat 01/25/19 08:29 Consult Infectious Diseases Routine 01/25/19 11:20 Consult [facility] occupational therapy professor Routine Ordered Studies 01/22/19 13:12 CT abd pelvis IV con only Stat Hospital Course (1) E. coli septicemia: Quiana is a 68-year-old female with a past medical history of hypertension, diabetes mellitus found unresponsive and who presented to [facility] with a 5-day history of urinary tract symptoms, not taking metformin for 2 weeks, weakness and unresponsiveness. She was diagnosed with gram-negative bacteremia and bacteriuria in addition to profound volume depletion. Urosepsis (Sepsis with UTI) On admission Quiana was tachycardic, febrile, and hypotensive. She received aggressive fluid rehydration with a total 24-hour volume repletion of almost 9 L. She was placed on empiric Zosyn. UA was indicative of infection, follow-up urine cultures showed E. coli resistant to ampicillin/sulbactam/cefazolin. Blood cultures confirmed gram-negative septicemia with E. coli. Quiana clinically improved with antibiotics and rehydration. Infectious disease was consulted to determine whether she could potentially qualify for oral antibiotics, or if she would require 2 weeks of parenteral therapy. Given that she clinically looked well, had been afebrile for over 36 hours, and had a susceptible E. coli infection of known source it was felt that oral antibiotics for a total 2-week course was reasonable. She was given a single dose of 2 g IV Rocephin prior to discharge, and discharged to complete 14 days total of antibiotics with Ceftin ear 300 mg twice daily. Mrs. Tracey agreed with the plan and with close follow-up to her primary care provider. Metabolic Encephalopathy On admission Quiana had altered mental status in the setting of urosepsis and severe dehydration. On admission she was alkalotic with a decreased PCO2 and elevated creatinine. Her mental status improved with antibiotics and rehydra tion as above. Her creatinine normalized as noted below. Prerenal azotemia On admission Quiana had an increase in her serum creatinine from a baseline of approximately 1 up to 1.33. Her creatinine down trended to within normal limits following IV rehydration. She did not show any other signs of BRIANNA, and did not experience any decreased urine output. Type 2 diabetes mellitus Quiana had not been taking her home metformin prior to admission. She had been under recent stress with the passing of her . Her A1c was 6.6% on admission and reflected good control. She received sliding scale insulin during admission with good glycemic control. He was discharged to resume her home metformin. Hypertension Her hydrochlorothiazide/lisinopril was initially held in the setting of hypoten lizy, and restarted following volume repletion. Adjustment disorder, grief Mrs. Tracey was intermittently tearful and expressed sadness and ongoing grieving at the passing of her 2 weeks ago. She reported that she felt safe, and did not have any thoughts of self-harm. Concern was expressed that her grief made self-care more difficult, but she felt safe with discharge to home and felt that she would be able to manage her care moving forward. She was discharged with close follow-up to her primary care provider. DVT prophylaxis DVT prophylaxis was maintained with Lovenox 40 mg subq daily. (2) DVT prophylaxis: (3) HTN (hypertension): (4) DM2 (diabetes mellitus, type 2): Total Time Total Time Spent Total Time Spent (In Minutes): <30 Discharge Plan Discharge Items Patient Disposition: Home - Self-Care Reason For Visit: UTI SYMPTOMS, FEVER, WEAKNESS Discharge Diagnosis: E. Coli Septicemia Discharge Goals: Therapeutic intervention Activity: Resume your previous activity Non-emergency contact: Primary Care Provider Call non-emergency contact if: you have any medication questions, your symptoms worsen, your pain is not controlled, your pain is worsening, your pain is unusual for you and your pain is concerning for you Follow-up/Referrals: Shukri Cruz [Primary Care Provider] - Diet: Carb Consistent or DM2 Addtl Provider Instructions: You were seen in the hospital for several days of chills, altered mental status, and blood in the urine and were found to have a UTI with spread of the bacteria to the blood. You have been prescribed an antibiotic as noted below. You have been prescribed an antibiotic, cefdinir (Omnicef). Please take cefdinir 300mg by mouth twice daily for 7 more days starting 01/26/2019. Please complete the entire course of antibiotics even if you feel better before they are complete. You are being scheduled for follow-up appointment with your primary care provider Dr. Cruz. You should receive a call to confirm an appointment for within 1 week. If you do not receive a call within the next 48 hours, or need to change her appointment, please call his office [phone]. If you develop any new or worsening symptoms, including fever, chills, sweats, difficulty breathing, wheezing, neck/face swelling, difficulty urinating, difficulty tolerating food/drink, rash, lightheadedness, dizziness, confusion or other symptoms please call your primary care provider at the number above, or call 911 to return to the emergency department for evaluation if you are very concerned. Prescriptions: New cefdinir 300 mg capsule 300 mg PO BID 7 Days Qty: 14 RF: 0 Continued metformin 500 mg tablet 500 mg PO QPM RF: 0 metformin 500 mg tablet 1,000 mg PO QAM RF: 0 lisinopril-hydrochlorothiazide 20-12.5 mg tablet 1 tab PO DAILY RF: 0 naproxen sodium [Aleve] 220 mg Tablet 220 mg PO UD PRN (Reason: pain) RF: 0 rosuvastatin 40 mg tablet 40 mg PO DAILY RF: 0 Dexilant 60 mg capsule,biphase delayed releas 60 mg PO DAILY RF: 0 Stand-Alone Forms: [facility] Discharge Orders: Discharge Order (Routine); Ordered 01/25/19 Ordered By: Otoniel Cervantes Admission Data Admit Date/Time: 01/22/19 15:47 Attending Provider: Henry Gong Admit Provider: Gume Stoner Primary Care Provider: Shukri Cruz Other Providers: Gume Stoner ; Jazz Gomez ; Zac Tompkins Service: Medical Other Interventions: Discharge Summary Assessment (RN) Last Done: 01/25/19 13:27 DC Date/Time DO NOT enter until pt leaves facility: 01/25/19 13:38 Supervising Physician Co-Signing Physician Notes I personally examined the patient and verified all reyes points of history and exam, discussed case, and agree with decision making with Dr Cervantes. feeling ok overall. no new complaints. discussed antibiotic planning vitals noted nad breathing unlabored no pallor or icterus, no focal neuro deficits. gram negative bacteremia- appears to have been UTI w secondary bacteremia. improved on zosyn - appreciate ID input --> ceftriaxone now followed by finishing course of Rx w cefdinir. stable for home. outpt f/u. DVT proph - lovenox otherwise doing well. as above. Resident Activity Tracking Resident Involvement: Resident Care Provided Care Provided: Adult Hospital Medicine
== END 2019-01-25 13:38 | disposition home or self-care (01) | DRG 871 ==
LOC: ED 12:43 → 4W 15:47 → SUATTDRO 15:47 → 4W 16:34
DX: Z79.84 Long term (current) use of oral hypoglycemic drugs; A41.51 Sepsis due to Escherichia coli [E. coli]; N39.0 Urinary tract infection, site not specified; F17.210 Nicotine dependence, cigarettes, uncomplicated; G93.41 Metabolic encephalopathy; R63.1 Polydipsia; N17.9 Acute kidney failure, unspecified; R79.89 Other specified abnormal findings of blood chemistry; Z91.14 Patient's other noncompliance with medication regimen; E83.39 Other disorders of phosphorus metabolism; E87.6 Hypokalemia; R41.82 Altered mental status, unspecified; E11.65 Type 2 diabetes mellitus with hyperglycemia; N12 Tubulo-interstitial nephritis, not specified as acute or chronic; I10 Essential (primary) hypertension; E86.0 Dehydration; Z79.899 Other long term (current) drug therapy

== ENCOUNTER 2021-11-17 18:16 | Observation (INO) ==
[2021-11-17] MEDS ORDERED: ONDANSETRON INJ 2 MG/ML 2 ML VIAL IV STA (18:36)
[2021-11-17] MEDS ORDERED: hydrALAZINE HCL 20 MG/ML VIAL IV STA (18:44)
--- NOTE | 2021-11-17 18:44 | Emergency Department Note ---
History of Present Illness General Chief complaint: Vomiting Stated complaint: VOMITING, NAUSEA, DIZZY Time Seen by Provider: 11/17/21 18:23 History of Present Illness Maximum Pain Intensity: 10 71-year-old female presents to the ED with a chief complaint of nausea and vomiting and dizziness. The patient states that her symptoms started on Thursday, 5 days ago. She states that she was feeling fine and then she started feeling a little dizzy in the head. She states that she then developed nausea and vomiting later that evening when she has been vomiting ever since. She states that she sometimes vomits or has dry heaves up to 20 times a day. Last episode of vomiting was about an hour ago. She states that the episodes of vomiting typically are preceded with a weird feeling in the head. She calls it dizzy but states that the room does not spin. She states that she does tolerate some fluids intermittently and has been urinating. She denies any abdominal pain other than the discomfort in her abdomen from to her dry heaves and vomiting. Denies any diarrhea. No fevers. No focal neurologic deficits no additional complaints. She has not been able to tolerate her oral medications and therefore her blood pressure is elevated Home Medications Medication Instructions Recorded Confirmed Type aspirin 81 mg tablet,delayed 81 mg PO DAILY #90 tab 04/25/21 11/17/21 Rx release omeprazole 20 mg capsule,delayed 20 mg PO DAILY #90 cap 04/25/21 11/17/21 Rx release metformin 500 mg tablet 500 mg PO BID #180 tab 04/26/21 11/17/21 Rx rosuvastatin 40 mg tablet 40 mg PO DAILY #90 tab 04/26/21 11/17/21 Rx hydrochlorothiazide 12.5 mg tablet 12.5 mg PO DAILY #30 tab 05/28/21 11/17/21 Rx lisinopril 30 mg tablet 30 mg PO DAILY #30 tab 05/28/21 11/17/21 Rx varenicline 1 mg tablet 1 mg PO BID #56 tab 06/21/21 11/17/21 Rx Allergies Allergy/AdvReac Type Severity Reaction Status Date / Time oxycodone AdvReac Intermediate "MAKES ME Unverified 11/17/21 20:19 SICK" Past Med/Surg History Medical History DM2 (diabetes mellitus, type 2) E. coli septicemia (12/2018) GERD (gastroesophageal reflux disease) HTN (hypertension) Hyperlipidemia Peripheral vascular disease Surgical History History of cholecystectomy S/P hysterectomy secondary to DUB Status post arterial stent multiple b/l legs Family History Father Hypertension Diabetes Mother Hypertension Diabetes Brother Colorectal cancer Sister Coronary heart disease Denies family history of Ovarian cancer Prostate cancer Myocardial infarction Breast cancer Stroke Social History Smoking Status: Current every day smoker Tobacco Type: Cigarettes Age Started Using Tobacco: 30; packs per day: 1; Second Hand Exposure: No; Hx Alcohol Use: No Hx Substance Use: No Preferred Language: [place]ese Communication Ability: Effective 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 Beliefs That Will Affect Care: None marital status: / Current Living Situation: Alone current occupational status: retired How many Children do You have: 5 Feels Safe at Home: Yes Childhood Exposure to Second-Hand Smoke: No caffeine: Yes (coffee) during the past year weight has: remained stable Dental Care, Regularly: No Physical Activity Frequency: Does not Exercise Seatbelt Use: always Sunscreen Use: Yes Assistive Devices: None Review of Systems A total of 10 systems reviewed and were otherwise negative Physical Exam Vital Signs Vital Signs - 24 hr 11/17/21 18:19 11/17/21 18:56 Temperature 36.9 C Temperature Source Temporal Artery Scan Pulse Rate 94 H Pulse Rate [Apical] 74 Pulse Rhythm Regular Pulse Rhythm [Apical] Regular Pulse Strength Normal Respiratory Rate 20 16 Respiratory Effort / Characteristics Non-Labored Spontaneous Non-Labored Respiratory Depth Normal Normal Respiratory Pattern Regular Blood Pressure 255/115 H Blood Pressure [Left Arm] 233/120 H Blood Pressure Mean 161 Blood Pressure Mean [Left Arm] 157 Blood Pressure Position Sitting Pulse Oximetry 99 95 Oxygen Delivery Method Room Air Room Air Sepsis Recent Fever Within 48 Hours No Sepsis New/Unexplained Change in Mental Status N/A Sepsis Action Taken by Nursing No Action Required CONSTITUTIONAL/VITAL SIGNS: Reviewed / noted above. GENERAL: Non-toxic in appearance. INTEGUMENTARY: Warm, dry, and [place]. HEAD: Normocephalic. EYES: without scleral icterus or trauma. ENT/OROPHARYNX: clear and moist. LYMPHADENOPATHY/NECK: Is supple without lymphadenopathy or meningismus. RESPIRATORY: Clear to auscultation bilaterally. No increased work of breathing. CARDIOVASCULAR: Regular rate and rhythm. GI/ABDOMEN: Soft and superficially tender diffusely likely related to abdominal muscle discomfort. No organomegaly or pulsatile mass. EXTREMITIES: Warm and well perfused. BACK: No CVA tenderness. NEUROLOGICAL: Intact without focal deficits. PSYCHIATRIC: normal affect. MUSCULOSKELETAL: Normally developed with good muscle tone. TRIAGE NURSING DOCUMENTATION REVIEWED. Course Administered Medications Discontinued Medications Hydralazine HCl (Hydralazine Hcl 20 Mg/Ml Vial) 10 mg IV NOW STA Stop: 11/17/21 18:45 Last Admin: 11/17/21 18:52 Dose: 10 mg Documented by: [id number] Sodium Chloride (Nss 1000ml) 1,000 mls @ 999 mls/hr IV .Q1H1M JENNY Stop: 11/17/21 19:45 Last Infusion: 11/17/21 20:50 Dose: 0 mls/hr Documented by: [id number] Admin: 11/17/21 18:52 Dose: 999 mls/hr Documented by: [id number] Prochlorperazine (Compazine) 1 mls @ 1 mls/min IV ONE ONE Stop: 11/17/21 20:23 Last Admin: 11/17/21 20:47 Dose: 1 mls/min Documented by: [id number] Ondansetron HCl (Ondansetron Inj 2 Mg/Ml 2 Ml Vial) 4 mg IV NOW STA Stop: 11/17/21 18:37 Last Admin: 11/17/21 18:52 Dose: 4 mg Documented by: [id number] Medical Decision Making Differential Diagnosis Gastroenteritis, food borne illness, infections, appendicitis, diverticulitis, i nflammatory bowel disease, obstruction, GI bleed, biliary pathology, volvulus, acute intracranial process, as well as other pathologies. Medical Records Attestation: I reviewed the patient's medical records. Home Medications Current Medication List: was personally reviewed by me Laboratory Data Attestation: I reviewed the patient's lab results. Result diagrams: 11/17/21 18:46 11/17/21 18:46 Lab Results 11/17/21 11/17/21 11/17/21 Range/Units 18:46 18:46 19:27 WBC 6.67 (4.8-10.8) K/uL RBC 5.24 (4.2-5.4) M/uL Hgb 15.5 (12.0-16.0) g/dL Hct 45.4 (37-47) % MCV 86.6 (80-100) fL MCH 29.6 (25-34) pg MCHC 34.1 (32-36) g/dL RDW Std Deviation 48.6 H (36.4-46.3) fL RDW Coeff of Billy 15.2 H (11.5-14.5) % Plt Count 179 (130-400) K/uL MPV 10.2 (7.4-10.4) fL Immature Gran % (Auto) 0.1 % Neut % (Auto) 72.9 % Lymph % (Auto) 21.1 % [place] % (Auto) 3.6 % Eos % (Auto) 1.9 % Baso % (Auto) 0.4 % Neut # (Auto) 4.85 (1.4-6.5) K/uL Lymph # (Auto) 1.41 (1.2-3.4) K/uL [place] # (Auto) 0.24 (0.11-0.59) K/uL Eos # (Auto) 0.13 (0-0.5) K/uL Baso # (Auto) 0.03 (0-0.2) K/uL Immature Gran # (Auto) 0.01 (0.00-0.02) K/uL Sodium 138 (136-145) mmol/L Potassium 3.4 L (3.5-5.1) mmol/L Chloride 102 (98-107) mmol/L Carbon Dioxide 25 (21-32) mmol/L Anion Gap 11 (3-11) BUN 21 (6-23) mg/dl Creatinine 1.02 (0.6-1.2) mg/dl Est Cr Clr Drug Dosing 49.2 ml/min Est GFR ( Amer) 64.1 ml/min Est GFR (Non-Af Amer) 55.3 ml/min BUN/Creatinine Ratio 20.6 H (10-20) Glucose 142 H (70-99(Fasting)) mg/dl Calcium 9.5 (8.5-10.1) mg/dl Magnesium 2.1 (1.7-2.4) mg/dl Total Bilirubin 1.2 H (0.2-1.0) mg/dl AST 12 L (13-39) U/L ALT 9 (7-52) U/L Alkaline Phosphatase 96 (34-104) U/L Troponin I < 0.03 (0-0.04) ng/ml Total Protein 7.9 (6.0-8.3) gm/dl Albumin 4.1 (3.4-5.0) gm/dl Globulin 3.8 (2.5-4.0) gm/dl Albumin/Globulin Ratio 1.1 (0.9-2) Lipase 13 (11-82) U/L Urine Color Yellow Urine Appearance Clear (Clear) Urine pH 8.0 H (4.5-7.5) Ur Specific [place] 1.009 (1.000-1.030) Urine Protein 1+ H (Negative) Urine Glucose (UA) Trace H (Negative) Urine Ketones Trace H (Negative) Urine Blood Negative (Negative) Urine Nitrite Negative (Negative) Urine Bilirubin Negative (Negative) Urine Urobilinogen Negative (Negative) Ur Leukocyte Esterase Negative (Negative) Urine WBC (Auto) 1-5 (0-5) /hpf Urine RBC (Auto) 0-4 (0-4) /hpf U Hyaline Cast (Auto) 1-5 (0-5) /lpf U Epithel Cells (Auto) >30 H (0-5) /lpf Urine Bacteria (Auto) Negative (Negative) Imaging Data Radiologist's Impression: Head CT 11/17/21 18:36 CT SCAN OF THE BRAIN WITHOUT IV CONTRAST CLINICAL HISTORY: Dizziness. Hypertension. Vomiting. COMPARISON STUDY: No priors. TECHNIQUE: Unenhanced axial CT scan of the brain is performed from the vertex to the skull base. A dose lowering technique was utilized adhering to the principles of ALARA. CT DOSE: 537.48 mGy.cm FINDINGS: Brain parenchyma: There are age-related involutional changes noting moderate subcortical and periventricular microangiopathic change. There is no hemorrhage, mass effect, or evidence of acute territorial ischemia by CT criteria. A chronic lacunar infarct is noted in the right caudate head. Davis-white matter differentiation is preserved. No extra-axial fluid collection is seen. Ventricles, sulci, cisterns: Prominent secondary to involutional change. Intracranial vasculature: There is atherosclerotic calcification of the cavernous carotid and vertebral arteries. Calvarium: Unremarkable. Sinuses and mastoids: The visualized paranasal sinuses are clear. The mastoid air cells are well pneumatized. Orbits: The bony orbits are grossly intact. IMPRESSION: There is no hemorrhage, mass effect, or evidence of acute territorial ischemia by CT criteria. ACT 112: Negative or not required by law. Electronically signed by: Hernán Fair M.D. 11/17/2021 7:25 PM ECG Data Attestation: I personally reviewed and interpreted this ECG as follows: Additional Comments: Twelve-lead EKG: Per my interpretation shows a sinus rhythm at a rate of 78 with occasional PVC. LVH is noted. EKG appears similar to a EKG dated January 22, 2019. MDM Narrative Patient presents with nausea and vomiting associated with dizziness for the past 5 days. Has not been able to tolerate her medications and therefore has elevated blood pressure here. Vital signs otherwise are unremarkable. Exam reveals no focal neurologic deficits. She has surface muscular tenderness to the abdominal wall but no suspected intra-abdominal tenderness. The patient CBC was normal, chemistry panel was unremarkable, EKG showed a sinus rhythm at a rate of 78 with an occasional PVC and LVH, no significant change from previous other than the PVC. Troponin was negative. Lipase was negative. Urine showed trace ketones. The patient was treated with IV fluids as well as IV Zofran here. She had vomiting despite the Zofran was given IV Compazine. She was given IV hydralazine for her hypertension. Because of her intractable vomiting and she stated that she did not seem to be feeling any better, she will be seen by the hospitalist for further evaluation and care. Impression & Plan Intractable cyclical vomiting, Hypertension Discharge Plan Visit Data Chief Complaint: Vomiting Stated Complaint: VOMITING, NAUSEA, DIZZY ED Provider: Rizwan Mckeon Discharge Problem: Intractable cyclical vomiting, Hypertension Patient Disposition: Being Evaluated by Hospitalist Forms Stand Alone Forms: My [facility]Pol Prescriptions Prescriptions: No Action metformin 500 mg tablet 500 mg PO BID Qty: 180 RF: 0 rosuvastatin 40 mg tablet 40 mg PO DAILY Qty: 90 RF: 0 varenicline 1 mg tablet 1 mg PO BID Qty: 56 RF: 0 lisinopril 30 mg tablet 30 mg PO DAILY Qty: 30 RF: 2 hydrochlorothiazide 12.5 mg tablet 12.5 mg PO DAILY Qty: 30 RF: 2 omeprazole 20 mg capsule,delayed release(DR/EC) 20 mg PO DAILY Qty: 90 RF: 0 aspirin 81 mg tablet,delayed release (DR/EC) 81 mg PO DAILY Qty: 90 RF: 3 Referrals Referrals: Marika Vasquez DO [Primary Care Provider] -
[2021-11-17] MEDS ORDERED: SODIUM CHLORIDE 0.9% 1000ML 1,000 ML IV SCH (18:45)
[2021-11-17 19:14] LABS: Basophils # (auto) 0.03 K/uL (0-0.2); Basophils % (auto) 0.4 %; Eosinophils # (auto) 0.13 K/uL (0-0.5); Eosinophils % (auto) 1.9 %; Hematocrit (blood only) 45.4 % (37-47); Hemoglobin 15.5 g/dL (12.0-16.0); Immature Granulocytes # (auto) 0.01 K/uL (0.00-0.02); Immature Granulocytes % (auto) 0.1 %; Lymphocytes # (auto) 1.41 K/uL (1.2-3.4); Lymphocytes % (auto) 21.1 %; Mean Corpuscular Hemoglobin 29.6 pg (25-34); Mean Corpuscular Hgb Conc 34.1 g/dL (32-36); Mean Corpuscular Volume 86.6 fL (80-100); Mean Platelet Volume 10.2 fL (7.4-10.4); Monocytes # (auto) 0.24 K/uL (0.11-0.59); Monocytes % (auto) 3.6 %; Neutrophils # (auto) 4.85 K/uL (1.4-6.5); Neutrophils % (auto) 72.9 %; Platelet Count 179 K/uL (130-400); RDW Coefficient of Variation 15.2 % (11.5-14.5); RDW Standard Deviation 48.6 fL (36.4-46.3); Red Blood Count 5.24 M/uL (4.2-5.4); White Blood Count 6.67 K/uL (4.8-10.8)
--- NOTE | 2021-11-17 19:28 | CT Scan Report ---
CT SCAN OF THE BRAIN WITHOUT IV CONTRAST CLINICAL HISTORY: Dizziness. Hypertension. Vomiting. COMPARISON STUDY: No priors. TECHNIQUE: Unenhanced axial CT scan of the brain is performed from the vertex to the skull base. A do se lowering technique was utilized adhering to the principles of ALARA. CT DOSE: 537.48 mGy.cm FINDINGS: Brain parenchyma: There are age-related involutional changes noting moderate subcortical and periven tricular microangiopathic change. There is no hemorrhage, mass effect, or evidence of acute territori al ischemia by CT criteria. A chronic lacunar infarct is noted in the right caudate head. Davis-white matter differentiation is preserved. No extra-axial fluid collection is seen. Ventricles, sulci, cisterns: Prominent secondary to involutional change. Intracranial vasculature: There is atherosclerotic calcification of the cavernous carotid and vertebr al arteries. Calvarium: Unremarkable. Sinuses and mastoids: The visualized paranasal sinuses are clear. The mastoid air cells are well pneu matized. Orbits: The bony orbits are grossly intact. IMPRESSION: There is no hemorrhage, mass effect, or evidence of acute territorial ischemia by CT page hanna. ACT 112: Negative or not required by law. Electronically signed by: Hernán Fair M.D. 11/17/2021 7:25 PM
[2021-11-17 19:33] LABS: Alanine Aminotransferase 9 U/L (7-52); Albumin Globulin Ratio 1.1 (0.9-2); Albumin Level 4.1 gm/dl (3.4-5.0); Alkaline Phosphatase 96 U/L (34-104); Anion Gap 11 (3-11); Aspartate Aminotransferase 12 U/L (13-39); BUN Creatinine Ratio 20.6 (10-20); Bilirubin,Total 1.2 mg/dl (0.2-1.0); Blood Urea Nitrogen 21 mg/dl (6-23); Calcium 9.5 mg/dl (8.5-10.1); Carbon Dioxide 25 mmol/L (21-32); Chloride 102 mmol/L (98-107); Creatinine Clr Calc Pharmacy 49.2 ml/min; Est GFR (African American) 64.1 ml/min; Est GFR (Non-African American) 55.3 ml/min; Globulin 3.8 gm/dl (2.5-4.0); Glucose 142 mg/dl (70-99(Fasting)); Lipase 13 U/L (11-82); Magnesium 2.1 mg/dl (1.7-2.4); Potassium 3.4 mmol/L (3.5-5.1); Sodium 138 mmol/L (136-145); Total Protein 7.9 gm/dl (6.0-8.3)
[2021-11-17 19:35] LABS: Troponin I < 0.03 ng/ml (0-0.04)
[2021-11-17 19:40] LABS: Appearance Urine Clear (Clear); Bacteria Urine Automated Negative (Negative); Bilirubin Urine Negative (Negative); Blood Urine Negative (Negative); Color Urine Yellow; Epithelial Cell Urine Auto >30 /lpf (0-5); Glucose Urine UA Trace (Negative); Ketones Urine Trace (Negative); Leukocyte Esterase Urine Negative (Negative); Nitrite Urine Negative (Negative); RBC Urine Automated 0-4 /hpf (0-4); Specific Gravity Urine 1.009 (1.000-1.030); Urobilinogen Urine Negative (Negative)
[2021-11-17 20:08] LABS: Protein Urine 1+ (Negative)
[2021-11-17] MEDS ORDERED: PROCHLORPERAZINE 1 ML IV ONE (20:22)
[2021-11-17] MEDS ORDERED: METOPROLOL TARTRATE 1 MG/ML VIAL IV STA (21:32)
--- NOTE | 2021-11-17 21:33 | History & Physical Report ---
Date of Service November 17, 2021 Assessment & Plan (1) Intractable cyclical vomiting: (2) Hypertension: (3) Tobacco use: (4) Hyperlipidemia: (5) Peripheral vascular disease: (6) GERD (gastroesophageal reflux disease): (7) DM2 (diabetes mellitus, type 2): Plan: Quiana Tracey is a 71-year-old female with past medical history of hypertension, hyperlipidemia, DM 2, GERD, peripheral vascular disease, tobacco use who presents today due to ongoing nausea, vomiting, and dizziness for 5 days. Intractable nausea and vomiting Likely secondary to viral labyrinthitis in the setting of URI preceding/overlapping with onset of symptoms Patient is an active cigarette smoker, but denies marijuana use Antiemetics as needed Meclizine as needed LR at 100 cc/h in the setting of decreased p.o. Hypertension with hypertensive urgency Per discussion with patient, likely her blood pressure is uncontrolled at baseline However, her acute severe elevation likely related to her current illness/stress Responded well to Lopressor 5 mg IV x1 in ED Consider additional doses as needed for BP above 200 systolic or 110 diastolic Recommend PCP follow-up for discussion of chronic blood pressure control Continue hydrochlorothiazide and lisinopril Hypokalemia Very mild with K of 3.4 on admission, likely related to vomiting Repleted with KCl 40 mEq Monitor on a.m. labs DM2 Hold home Metformin SSI while admitted Tobacco use Cessation education Varenicline on med list but patient admits to continued daily tobacco use recommend discussion of goals Peripheral vascular disease Continue aspirin Encourage tobacco cessation Hyperlipidemia Continue rosuvastatin DVT prophylaxis: Lovenox subcu Diet: Clear liquids, advance as tolerated to heart healthy/DM2 Dispo: Admit to [facility] CODE STATUS: Full History of Present Illness Primary Care Provider: Marika Vasquez DO Quiana Tracey is a 71-year-old female with past medical history of hypertension, hyperlipidemia, DM 2, GERD, peripheral vascular disease, tobacco use who presents today due to ongoing nausea, vomiting, and dizziness for 5 days. Patient states that she has been having episodes of feeling dizzy, especially with head movement. However, she states that she does not have a room spinning sensation, only that moving her head will cause her to feel very lightheaded and nauseous. These episodes seem to come in bursts and tend to self resolve. She states she does have a history of vertigo, and these feel somewhat similar but a little more intense. She has been able to consume oral nutrition and hydration intermittently. She has had mild abdominal discomfort, but more related to her continuous vomiting. No diarrhea or constipation. Additionally, patient reports that she had at least one episode of feeling very unsteady on her feet, to the point that she fell down to her knees entering her home. She did not lose consciousness or hit her head. Denies fever, chills, chest pain, palpitations, shortness of breath, numbness, weakness of the limbs, difficulty with speech. Patient states that she did have an upper respiratory infection last week, she classified it as a cold but with "pretty bad symptoms". She did not get tested for anything, and eventually felt better. The symptoms started around the time when she was feeling better from an upper respiratory standpoint. Today in ED, patient had largely normal lab work with normal white count, normal hemoglobin, normal platelet count. Only electrolyte disturbance was a potassium of 3.4. She did have a very mildly elevated total bilirubin at 1.2. Troponin was negative. Patient had a negative head CT. She received Zofran 4 mg IV x1 for nausea, which did not resolve her symptoms and was then given Compazine 5 mg x 1 with resolution of her nausea. Her blood pressure was found to be significantly elevated up to 250s systolic and 130s diastolic. She received hydralazine 10 mg IV x1, but blood pressure did not respond adequately. I then ordered Lopressor 5 mg IV x1, which brought her blood pressure down to 170s over 80s. Patient states that at home her blood pressure tends to be somewhat uncontrolled with her systolic BP regularly being in the 160s to 170s. She does admit to a prior episode of BPs similar to today, but this was when she had gallbladder pain and was seen in the hospital for that. Allergies Allergy/AdvReac Type Severity Reaction Status Date / Time oxycodone AdvReac Intermediate "MAKES ME Unverified 11/17/21 20:19 SICK" Home Medications Medication Instructions Recorded Confirmed Type aspirin 81 mg tablet,delayed 81 mg PO DAILY #90 tab 04/25/21 11/17/21 Rx release omeprazole 20 mg capsule,delayed 20 mg PO DAILY #90 cap 04/25/21 11/17/21 Rx release metformin 500 mg tablet 500 mg PO BID #180 tab 04/26/21 11/17/21 Rx rosuvastatin 40 mg tablet 40 mg PO DAILY #90 tab 04/26/21 11/17/21 Rx hydrochlorothiazide 12.5 mg tablet 12.5 mg PO DAILY #30 tab 05/28/21 11/17/21 Rx lisinopril 30 mg tablet 30 mg PO DAILY #30 tab 05/28/21 11/17/21 Rx varenicline 1 mg tablet 1 mg PO BID #56 tab 06/21/21 11/17/21 Rx Past Med/Surg History Medical History DM2 (diabetes mellitus, type 2) E. coli septicemia (12/2018) GERD (gastroesophageal reflux disease) HTN (hypertension) Hyperlipidemia Peripheral vascular disease Surgical History History of cholecystectomy S/P hysterectomy secondary to DUB Status post arterial stent multiple b/l legs Family History Father Hypertension Diabetes Mother Hypertension Diabetes Brother Colorectal cancer Sister Coronary heart disease Denies family history of Ovarian cancer Prostate cancer Myocardial infarction Breast cancer Stroke Social History Smoking Status: Current every day smoker Tobacco Type: Cigarettes Age Started Using Tobacco: 30; packs per day: 1; Second Hand Exposure: No; Hx Alcohol Use: No Hx Substance Use: No Preferred Language: Luxembourgish Communication Ability: Effective 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 NAD. HEENT: PERRL, EOMI. Moist mucous membranes. NECK: No JVD. No lymphadenopathy. CHEST/LUNGS: CTAB A/P. No crackles, wheezes, rales, rhonchi. HEART: RRR. No m/g/r. No carotid bruits. ABDOMEN: Mild TTP at LUQ, ND, soft. BS+ x4 EXTREMITIES: No cyanosis, no clubbing, no edema SKIN: Warm and dry. No rashes or lesions. PSYCHIATRIC: Euthymic affect, no SI, no pressured speech, no hallucinations NEUROLOGIC: No FND. CN II-XII grossly intact. Results & Data Results & Data ([facility]) Vital Signs (Past 12 Hours) Vital Signs Temp Pulse Pulse Resp BP BP Pulse Ox 11/17/21 20:17 94 H 17 231/134 H 97 11/17/21 18:56 74 16 233/120 H 95 11/17/21 18:19 36.9 C 94 H 20 255/115 H 99 Resident Activity Tracking Resident Involvement: Resident Care Provided Care Provided: Adult Hospital Medicine
[2021-11-17] MEDS ORDERED: POTASSIUM CHLORIDE / WTR 10 MEQ/100 ML PLCT IV STA (21:53)
[2021-11-17] MEDS ORDERED: MECLIZINE 12.5 MG TAB PO PRN (23:34)
[2021-11-17] MEDS ORDERED: ONDANSETRON INJ 2 MG/ML 2 ML VIAL IV PRN (23:34)
[2021-11-17] MEDS ORDERED: DEXTROSE 50% 50 ML SYRINGE IV PRN (23:55)
[2021-11-17] MEDS ORDERED: GLUCOSE 10 TABS/TUBE PO PRN (23:55)
[2021-11-17] MEDS ORDERED: CARBOHYDRATES FOR HYPOGLYCEMIA PO PRN (23:55)
[2021-11-17] MEDS ORDERED: GLUCOSE 40% GEL 15 GM TUBE PO PRN (23:55)
[2021-11-17] MEDS ORDERED: GLUCAGON FOR INJ 1 MG VIAL SQ PRN (23:55)
[2021-11-18] MEDS: LACTATED RINGER'S 1,000 ML IV SCH ×2 (00:42→10:34)
[2021-11-18] MEDS ORDERED: hydrALAZINE HCL 20 MG/ML VIAL IV STA (04:06)
[2021-11-18] MEDS ORDERED: ACETAMINOPHEN 325 MG TAB PO PRN ×2 (05:44→06:03)
--- NOTE | 2021-11-18 08:24 | Electrocardiogram Report ---
Test Reason : Blood Pressure : / mmHG Vent. Rate : 078 BPM Atrial Rate : 078 BPM P-R Int : 162 ms QRS Dur : 126 ms QT Int : 414 ms P-R-T Axes : 030 -39 104 degrees QTc Int : 471 ms Sinus rhythm with sinus arrhythmia with occasional Premature ventricular complexes Left axis deviation Left ventricular hypertrophy with QRS widening and repolarization abnormality Abnormal ECG When compared with ECG of 22-JAN-2019 12:58, Premature ventricular complexes are now Present Premature atrial complexes are no longer Present QRS duration has increased Nonspecific T wave abnormality no longer evident in Anterior leads Confirmed by Tan Botello ([id number]) on 11/18/2021 8:24:03 AM Referred By: REFERRED SELF Confirmed By:Blayne Botello
[2021-11-18] MEDS: INSULIN ASPART PER UNIT SC SCH ×2 (08:43→12:18)
--- NOTE | 2021-11-18 08:50 | Hospitalist Progress Note ---
Date of Service November 18, 2021 Assessment & Plan Admission and Anticipated Discharge Date Admission Date: November 17, 2021 Subjective Patient evaluated this morning. Recent URI ~2 weeks ago, dizziness occurring since last Thursday States she is doing alright, but didn't get much sleep. Still having intermittent dizziness when sitting in bed such that the room is spinning. Discussed can try dose of meclizine to see if effective. Does have some RUQ/rib tenderness from vomiting, hx GB removed ~ 10 years ago. Has history multiple stents to b/l LE , follows vascular in [place]. No fever, chills, chest pain. No further vomiting. Has not been taking her medications for a couple of days due to not feeling well, including her aspirin. Denies any decreased sensation to her legs/no ertyhema/tenderness. Of note, medications include chantix -- she states her PCP sent this in for her but she has not started this. Denies abdominal pain, diarrhea. Most recent BM 2 days ago. No fever/chills, shortness of breath. Does still have occassional cough, productive of yellow/green sputum at times. . Results & Data Results & Data ([facility]) Vital Signs (Past 12 Hours) Vital Signs Temp Pulse Pulse Pulse Resp BP BP 11/18/21 07:42 36.9 C 70 18 176/78 H 11/18/21 06:16 61 11/18/21 04:48 65 124/62 11/18/21 03:27 37.0 C 65 18 198/87 H 11/17/21 23:35 76 11/17/21 23:29 36.9 C 65 20 193/89 H 11/17/21 23:26 36.9 C 65 20 193/89 H 11/17/21 22:00 88 12 177/89 H Pulse Ox 11/18/21 07:42 94 11/18/21 06:16 11/18/21 04:48 96 11/18/21 03:27 97 11/17/21 23:35 11/17/21 23:29 96 11/17/21 23:26 96 11/17/21 22:00 99 Laboratory Results 11/18/21 11/18/21 11/17/21 Range/Units 07:23 07:01 21:03 WBC (4.8-10.8) K/uL RBC (4.2-5.4) M/uL Hgb (12.0-16.0) g/dL Hct (37-47) % MCV (80-100) fL MCH (25-34) pg MCHC (32-36) g/dL RDW Std Deviation (36.4-46.3) fL RDW Coeff of Billy (11.5-14.5) % Plt Count (130-400) K/uL MPV (7.4-10.4) fL Immature Gran % (Auto) % Neut % (Auto) % Lymph % (Auto) % [place] % (Auto) % Eos % (Auto) % Baso % (Auto) % Neut # (Auto) (1.4-6.5) K/uL Lymph # (Auto) (1.2-3.4) K/uL [place] # (Auto) (0.11-0.59) K/uL Eos # (Auto) (0-0.5) K/uL Baso # (Auto) (0-0.2) K/uL Immature Gran # (Auto) (0.00-0.02) K/uL Sodium (136-145) mmol/L Potassium (3.5-5.1) mmol/L Chloride (98-107) mmol/L Carbon Dioxide (21-32) mmol/L Anion Gap (3-11) BUN (6-23) mg/dl Creatinine (0.6-1.2) mg/dl Est Cr Clr Drug Dosing ml/min Est GFR ( Amer) ml/min Est GFR (Non-Af Amer) ml/min BUN/Creatinine Ratio (10-20) Glucose (70-99(Fasting)) mg/dl POC Glucose 123 H (70-99) mg/dl Estimat Average Glucose Pending Hemoglobin A1c Pending Calcium (8.5-10.1) mg/dl Magnesium (1.7-2.4) mg/dl Total Bilirubin (0.2-1.0) mg/dl AST (13-39) U/L ALT (7-52) U/L Alkaline Phosphatase (34-104) U/L Troponin I (0-0.04) ng/ml Total Protein (6.0-8.3) gm/dl Albumin (3.4-5.0) gm/dl Globulin (2.5-4.0) gm/dl Albumin/Globulin Ratio (0.9-2) Lipase (11-82) U/L Urine Color Urine Appearance (Clear) Urine pH (4.5-7.5) Ur Specific [place] (1.000-1.030) Urine Protein (Negative) Urine Glucose (UA) (Negative) Urine Ketones (Negative) Urine Blood (Negative) Urine Nitrite (Negative) Urine Bilirubin (Negative) Urine Urobilinogen (Negative) Ur Leukocyte Esterase (Negative) Urine WBC (Auto) (0-5) /hpf Urine RBC (Auto) (0-4) /hpf U Hyaline Cast (Auto) (0-5) /lpf U Epithel Cells (Auto) (0-5) /lpf Urine Bacteria (Auto) (Negative) SARS-CoV-2, RNA, NAAT NEGATIVE (NEGATIVE) 11/17/21 11/17/21 11/17/21 Range/Units 19:27 18:46 18:46 WBC 6.67 (4.8-10.8) K/uL RBC 5.24 (4.2-5.4) M/uL Hgb 15.5 (12.0-16.0) g/dL Hct 45.4 (37-47) % MCV 86.6 (80-100) fL MCH 29.6 (25-34) pg MCHC 34.1 (32-36) g/dL RDW Std Deviation 48.6 H (36.4-46.3) fL RDW Coeff of Billy 15.2 H (11.5-14.5) % Plt Count 179 (130-400) K/uL MPV 10.2 (7.4-10.4) fL Immature Gran % (Auto) 0.1 % Neut % (Auto) 72.9 % Lymph % (Auto) 21.1 % [place] % (Auto) 3.6 % Eos % (Auto) 1.9 % Baso % (Auto) 0.4 % Neut # (Auto) 4.85 (1.4-6.5) K/uL Lymph # (Auto) 1.41 (1.2-3.4) K/uL [place] # (Auto) 0.24 (0.11-0.59) K/uL Eos # (Auto) 0.13 (0-0.5) K/uL Baso # (Auto) 0.03 (0-0.2) K/uL Immature Gran # (Auto) 0.01 (0.00-0.02) K/uL Sodium 138 (136-145) mmol/L Potassium 3.4 L (3.5-5.1) mmol/L Chloride 102 (98-107) mmol/L Carbon Dioxide 25 (21-32) mmol/L Anion Gap 11 (3-11) BUN 21 (6-23) mg/dl Creatinine 1.02 (0.6-1.2) mg/dl Est Cr Clr Drug Dosing 49.2 ml/min Est GFR ( Amer) 64.1 ml/min Est GFR (Non-Af Amer) 55.3 ml/min BUN/Creatinine Ratio 20.6 H (10-20) Glucose 142 H (70-99(Fasting)) mg/dl POC Glucose (70-99) mg/dl Estimat Average Glucose Hemoglobin A1c Calcium 9.5 (8.5-10.1) mg/dl Magnesium 2.1 (1.7-2.4) mg/dl Total Bilirubin 1.2 H (0.2-1.0) mg/dl AST 12 L (13-39) U/L ALT 9 (7-52) U/L Alkaline Phosphatase 96 (34-104) U/L Troponin I < 0.03 (0-0.04) ng/ml Total Protein 7.9 (6.0-8.3) gm/dl Albumin 4.1 (3.4-5.0) gm/dl Globulin 3.8 (2.5-4.0) gm/dl Albumin/Globulin Ratio 1.1 (0.9-2) Lipase 13 (11-82) U/L Urine Color Yellow Urine Appearance Clear (Clear) Urine pH 8.0 H (4.5-7.5) Ur Specific [place] 1.009 (1.000-1.030) Urine Protein 1+ H (Negative) Urine Glucose (UA) Trace H (Negative) Urine Ketones Trace H (Negative) Urine Blood Negative (Negative) Urine Nitrite Negative (Negative) Urine Bilirubin Negative (Negative) Urine Urobilinogen Negative (Negative) Ur Leukocyte Esterase Negative (Negative) Urine WBC (Auto) 1-5 (0-5) /hpf Urine RBC (Auto) 0-4 (0-4) /hpf U Hyaline Cast (Auto) 1-5 (0-5) /lpf U Epithel Cells (Auto) >30 H (0-5) /lpf Urine Bacteria (Auto) Negative (Negative) SARS-CoV-2, RNA, NAAT (NEGATIVE) Diagnostic Findings Head CT 11/17/21 18:36 CT SCAN OF THE BRAIN WITHOUT IV CONTRAST CLINICAL HISTORY: Dizziness. Hypertension. Vomiting. COMPARISON STUDY: No priors. TECHNIQUE: Unenhanced axial CT scan of the brain is performed from the vertex to the skull base. A dose lowering technique was utilized adhering to the principles of ALARA. CT DOSE: 537.48 mGy.cm FINDINGS: Brain parenchyma: There are age-related involutional changes noting moderate subcortical and periventricular microangiopathic change. There is no hemorrhage, mass effect, or evidence of acute territorial ischemia by CT criteria. A chronic lacunar infarct is noted in the right caudate head. Davis-white matter differentiation is preserved. No extra-axial fluid collection is seen. Ventricles, sulci, cisterns: Prominent secondary to involutional change. Intracranial vasculature: There is atherosclerotic calcification of the cavernous carotid and vertebral arteries. Calvarium: Unremarkable. Sinuses and mastoids: The visualized paranasal sinuses are clear. The mastoid air cells are well pneumatized. Orbits: The bony orbits are grossly intact. IMPRESSION: There is no hemorrhage, mass effect, or evidence of acute territorial ischemia by CT criteria. ACT 112: Negative or not required by law. Electronically signed by: Hernán Fair M.D. 11/17/2021 7:25 PM PG Care Time/CCT Total # of Minutes Spent Total Time Spent with Patient: Total time spent is greater than 50% in coordination of care (as documented) at patient's floor/unit and/or counseling patient: Coding
[2021-11-18] MEDS ORDERED: PANTOprazole 40 MG TAB PO SCH (09:00)
[2021-11-18] MEDS ORDERED: ASPIRIN 81 MG ECTAB PO SCH (09:00)
[2021-11-18] MEDS ORDERED: ENOXAPARIN INJ 40 MG/0.4 ML SYR SQ SCH (09:00)
[2021-11-18] MEDS ORDERED: INSULIN GLARGINE SOLOSTAR 100 UNITS/ML 3 ML PEN SC SCH (09:00)
[2021-11-18] MEDS ORDERED: ROSUVASTATIN CALCIUM 20 MG TAB PO SCH (09:00)
[2021-11-18] MEDS ORDERED: hydroCHLOROthiazide 25 MG TAB PO SCH (09:00)
[2021-11-18] MEDS ORDERED: lisinopril 10 MG TAB PO SCH (09:00)
[2021-11-18 09:12] LABS: Estimated Average Glucose 128 mg/dl; Hemoglobin A1C 6.1 % (4.5-5.6)
[2021-11-18] MEDS ORDERED: hydrALAZINE HCL 20 MG/ML VIAL IV PRN (09:36)
--- NOTE | 2021-11-18 10:00 | XRay Report ---
XR chest 1V portable CLINICAL HISTORY: n/v, recent URI. Evaluate cardiopulmonary status COMPARISON STUDY: 01/22/2019 TECHNIQUE: 1 view of the chest FINDINGS: Single frontal view of the chest demonstrates the cardiomediastinal silhouette to be within normal li mits. There is a decreased inspiratory effort with elevation of the hemidiaphragms, right greater gracy n left and crowding of the bronchovascular markings at the lung bases and centrally. The lungs are cl ear of alveolar opacities. There is no evidence for pleural effusion. There is no evidence for vascul ar congestion. There is no acute osseous pathology. IMPRESSION: 1. . There is a decreased inspiratory effort with otherwise no acute chest disease. ACT 112: Negative or not required by law. Electronically signed by: Jethro Peguero M.D. 11/18/2021 9:58 AM
--- NOTE | 2021-11-18 10:14 | XRay Report ---
KUB HISTORY: Nausea. Vomiting. COMPARISON: Abdomen and pelvis CT 09/20/2020. FINDINGS: The bowel gas pattern is unremarkable. There are no dilated loops of small bowel to suggest an obstruction. There is a punctate left renal stone. No right renal calculi. No ureteral calculi. Prior cholecystectomy. Bilateral femoral artery stents are noted. No pneumoperitoneum or pneumatosis. IMPRESSION: 1. No evidence for bowel obstruction. 2. Left-sided nephrolithiasis. ACT 112: Negative or not required by law. Electronically signed by: Sae Mosquera M.D. 11/18/2021 10:12 AM
[2021-11-18 11:40] LABS: Hematocrit (blood only) 41.7 % (37-47); Mean Corpuscular Hemoglobin 29.2 pg (25-34); Mean Corpuscular Hgb Conc 33.6 g/dL (32-36); Mean Corpuscular Volume 86.9 fL (80-100); Mean Platelet Volume 10.7 fL (7.4-10.4); Platelet Count 181 K/uL (130-400); RDW Coefficient of Variation 15.7 % (11.5-14.5); RDW Standard Deviation 50.3 fL (36.4-46.3); White Blood Count 7.14 K/uL (4.8-10.8)
[2021-11-18 11:49] LABS: Albumin Level 3.5 gm/dl (3.4-5.0); BUN Creatinine Ratio 17.9 (10-20); Bilirubin Direct 0.2 mg/dl (0-0.2); Bilirubin,Total 1.2 mg/dl (0.2-1.0); Calcium 8.6 mg/dl (8.5-10.1); Creatinine Clr Calc Pharmacy 52.8 ml/min; Est GFR (African American) 69.8 ml/min; Est GFR (Non-African American) 60.3 ml/min; Potassium 3.6 mmol/L (3.5-5.1); Total Protein 6.5 gm/dl (6.0-8.3)
--- NOTE | 2021-11-18 12:29 | Discharge Summary ---
Date of Service November 18, 2021 Admission HPI Per Admitting Provider Quiana Tracey is a 71-year-old female with past medical history of hypertension, hyperlipidemia, DM 2, GERD, peripheral vascular disease, tobacco use who presents today due to ongoing nausea, vomiting, and dizziness for 5 days. Patient states that she has been having episodes of feeling dizzy, especially with head movement. However, she states that she does not have a room spinning sensation, only that moving her head will cause her to feel very lightheaded and nauseous. These episodes seem to come in bursts and tend to self resolve. She states she does have a history of vertigo, and these feel somewhat similar but a little more intense. She has been able to consume oral nutrition and hydration intermittently. She has had mild abdominal discomfort, but more related to her continuous vomiting. No diarrhea or constipation. Additionally, patient reports that she had at least one episode of feeling very unsteady on her feet, to the point that she fell down to her knees entering her home. She did not lose consciousness or hit her head. Denies fever, chills, chest pain, palpitations, shortness of breath, numbness, weakness of the limbs, difficulty with speech. Patient states that she did have an upper respiratory infection last week, she classified it as a cold but with "pretty bad symptoms". She did not get tested for anything, and eventually felt better. The symptoms started around the time when she was feeling better from an upper respiratory standpoint. Today in ED, patient had largely normal lab work with normal white count, normal hemoglobin, normal platelet count. Only electrolyte disturbance was a potassium of 3.4. She did have a very mildly elevated total bilirubin at 1.2. Troponin was negative. Patient had a negative head CT. She received Zofran 4 mg IV x1 for nausea, which did not resolve her symptoms and was then given Compazine 5 mg x 1 with resolution of her nausea. Her blood pressure was found to be significantly elevated up to 250s systolic and 130s diastolic. She received hydralazine 10 mg IV x1, but blood pressure did not respond adequately. I then ordered Lopressor 5 mg IV x1, which brought her blood pressure down to 170s over 80s. Patient states that at home her blood pressure tends to be somewhat uncontrolled with her systolic BP regularly being in the 160s to 170s. She does admit to a prior episode of BPs similar to today, but this was when she had gallbladder pain and was seen in the hospital for that. Admission Exam Per Admitting Provider GENERAL: A&Ox3. NAD. HEENT: PERRL, EOMI. Moist mucous membranes. NECK: No JVD. No lymphadenopathy. CHEST/LUNGS: CTAB A/P. No crackles, wheezes, rales, rhonchi. HEART: RRR. No m/g/r. No carotid bruits. ABDOMEN: Mild TTP at LUQ, ND, soft. BS+ x4 EXTREMITIES: No cyanosis, no clubbing, no edema SKIN: Warm and dry. No rashes or lesions. PSYCHIATRIC: Euthymic affect, no SI, no pressured speech, no hallucinations NEUROLOGIC: No FND. CN II-XII grossly intact. Principal Diagnosis Cyclical Vomiting, Labyrinthitis Discharge Exam General: WN, WD female sitting in bed, no acute distress HEENT: eyes anicteric, pupils equal and reactive, EOMI, mmm, trachea midline without deviation Resp: CTAB, poor inspiratory effort, diminished in the bases, no crackles/wheezing/rales, on room air CV: RRR, no m/r/g, no calf edema GI: +BS, soft, non-tender, no rebound : no neri MSK/Neuro: moves all extremities, CN intact grossly, strength equal bilaterally, no facial droop, speech clear and appropriate Psych: AOx3, pleasant and euthymic Discharge Data Allergies Allergy/AdvReac Type Severity Reaction Status Date / Time oxycodone AdvReac Intermediate "MAKES ME Unverified 11/17/21 20:19 SICK" Consultations 11/17/21 20:51 ED Decision to Admit Stat Ordered Studies Head CT 11/17/21 18:36 CT SCAN OF THE BRAIN WITHOUT IV CONTRAST CLINICAL HISTORY: Dizziness. Hypertension. Vomiting. COMPARISON STUDY: No priors. TECHNIQUE: Unenhanced axial CT scan of the brain is performed from the vertex to the skull base. A dose lowering technique was utilized adhering to the principles of ALARA. CT DOSE: 537.48 mGy.cm FINDINGS: Brain parenchyma: There are age-related involutional changes noting moderate subcortical and periventricular microangiopathic change. There is no hemorrhage, mass effect, or evidence of acute territorial ischemia by CT criteria. A chronic lacunar infarct is noted in the right caudate head. Davis-white matter differentiation is preserved. No extra-axial fluid collection is seen. Ventricles, sulci, cisterns: Prominent secondary to involutional change. Intracranial vasculature: There is atherosclerotic calcification of the cavernous carotid and vertebral arteries. Calvarium: Unremarkable. Sinuses and mastoids: The visualized paranasal sinuses are clear. The mastoid air cells are well pneumatized. Orbits: The bony orbits are grossly intact. IMPRESSION: There is no hemorrhage, mass effect, or evidence of acute territori al ischemia by CT criteria. ACT 112: Negative or not required by law. Electronically signed by: Hernán Fair M.D. 11/17/2021 7:25 PM Chest X-Ray 11/18/21 08:49 XR chest 1V portable CLINICAL HISTORY: n/v, recent URI. Evaluate cardiopulmonary status COMPARISON STUDY: 01/22/2019 TECHNIQUE: 1 view of the chest FINDINGS: Single frontal view of the chest demonstrates the cardiomediastinal silhouette to be within normal limits. There is a decreased inspiratory effort with elevation of the hemidiaphragms, right greater than left and crowding of the bronchovascular markings at the lung bases and centrally. The lungs are clear of alveolar opacities. There is no evidence for pleural effusion. There is no evidence for vascular congestion. There is no acute osseous pathology. IMPRESSION: 1. . There is a decreased inspiratory effort with otherwise no acute chest disease. ACT 112: Negative or not required by law. Electronically signed by: Jethro Peguero M.D. 11/18/2021 9:58 AM KUB X-Ray 11/18/21 08:50 KUB HISTORY: Nausea. Vomiting. COMPARISON: Abdomen and pelvis CT 09/20/2020. FINDINGS: The bowel gas pattern is unremarkable. There are no dilated loops of small bowel to suggest an obstruction. There is a punctate left renal stone. No right renal calculi. No ureteral calculi. Prior cholecystectomy. Bilateral femoral artery stents are noted. No pneumoperitoneum or pneumatosis. IMPRESSION: 1. No evidence for bowel obstruction. 2. Left-sided nephrolithiasis. ACT 112: Negative or not required by law. Electronically signed by: Sae Mosquera M.D. 11/18/2021 10:12 AM Hospital Course (1) Intractable cyclical vomiting: (2) Hypertension: (3) Tobacco use: (4) Hyperlipidemia: (5) Peripheral vascular disease: (6) GERD (gastroesophageal reflux disease): (7) DM2 (diabetes mellitus, type 2): Quiana Tracey is a 71-year-old female with past medical history of hypertension, hyperlipidemia, DM 2, GERD, peripheral vascular disease, tobacco use who presents today due to ongoing nausea, vomiting, and dizziness for 5 days. Recent URI ~2 weeks ago, dizziness occurring since last Thursday Has history multiple stents to b/l LE , follows vascular in [place]. Intractable nausea and vomiting/HTN with urgency Likely secondary to viral labyrinthitis in the setting of URI preceding/overlapping with onset of symptoms Patient is an active cigarette smoker, but denies marijuana use. Did not start chantix as recently sent by her PCP Antiemetics as needed LR at 100 cc/h in the setting of decreased p.o. Meclizine as needed --> asked RN to give dose of 12.5mg dose x 1 this morning --> resolution of symptoms in afternoon and sent rx at discharge Diet advanced --> no further n/v CT head during admission NEGATIVE for CVA Also discussed elevated BPs (she did not take medications for several days due to feeling ill/not keeping anything down) --> Discussed elevated BPs can contribute to n/v -->Was given labetalol x 1, hydralazine prn was available --> BP 171/75 prior to discharge and instructed to continue monitoring BP at home and if remains elevated would discuss increasing her BP medications with her PCP but educated to ensure staying well hydrated to prevent worsening dehydration/elevated BP/n/v UA NEGATIVE Hypokalemia K 3.4 on admission, 2nd to n/v as well as decreased PO intake [employer]. Also on HCTZ --> Given 40meq PO x 1, K normal on AM labs Consider repeating labs outpatient in next 1-2 weeks to see if additonal k supplementation needed but is also on potassium sparing diuretic as well DM2 Hold home Metformin. A1c acceptable and improved. SSI while inpatient and resumed home metformin at discharge Tobacco use Varenicline on med list but patient admits to continued daily tobacco use recommend discussion of goals with PCP and encouraged cessation Peripheral vascular disease - Hx b/l LE stents, ~10 per patient Continue aspirin , had not taken but stated full sensation and on examination no issues Encourage tobacco cessation -F/u vascular in [place] as seen in past Hyperlipidemia Continue rosuvastatin DVT prophylaxis: Lovenox subcu while inpatient Total Time Total Time Spent Total Time Spent (In Minutes): 45 Discharge Plan Discharge Items Patient Disposition: Home - Self-Care Reason For Visit: INTRACTABLE N/V Discharge Diagnosis: Vertigo, Labyrinthitis from Upper Respiratory Illness Goals: You have been hospitalized for an acute medical problem. During your stay at [facility], we have made an effort to correct the problem that brought you to the hospital while keeping you as comfortable as possible. Medications were used to bring your condition under control and your discharge instructions will include directions for any medications you should take after leaving the hospital. Please make sure you see your Primary Care Provider as part of your follow up plan. Activity: Resume your previous activity Non-emergency contact: Primary Care Provider Call non-emergency contact if: you have any medication questions, your symptoms worsen and your pain is unusual for you Follow-up/Referrals: Marika Vasquez DO [Primary Care Provider] - 12/04/21 10:20 am Diet: Heart Healthy Addtl Attending Provider Instructions: You have been hospitalized for vertigo, nausea, vomiting. This could have been from a recent upper viral respiratory infection that can cause what is termed "labyrinthitis" vs vertigo, and is an acute postviral inflammatory disorder affecting your eigth cranial nerve, and can be source of the dizziness. Your blood pressure was also on the higher side, and as noted by previous PCP note, your blood pressure medications have been adjusted and you should continue checking these values at home. Elevated blood pressure can lead you to feel nauseous/vomiting as well. Worrisome signs include stroke, and a CT of your head was done which was NEGATIVE for any sign of stroke. Of note, an x-ray was taken during admission, and you do have evidence for a small left sided kidney stone. This is not obstructing and your urine DID NOT APPEAR INFECTED. However, if you develop back pain (left low back pain), this could move and cause discomfort. You have been given medication called meclizine to use as needed for vertigo symptoms. If solely related to post-viral illness, these symptoms should resolve over the next couple of weeks. You should follow up with your PCP in the next 7-10 days to monitor your progress. Please return to the emergency department with any fever/chills, chest pain, shortness of breath, increased dizziness, or for any other symptoms concerning for you. It has been a pleasure being a part of the medical team providing for you while you have been in the hospital. Take care! Pending Studies at Discharge: No Stand-Alone Forms: [facility], Smoking Cessation Medications and DC Order Prescriptions: New meclizine 12.5 mg Tablet 12.5 mg PO Q6H PRN (Reason: dizziness) Qty: 30 RF: 0 Continued metformin 500 mg tablet 500 mg PO BID Qty: 180 RF: 0 rosuvastatin 40 mg tablet 40 mg PO DAILY Qty: 90 RF: 0 varenicline 1 mg tablet 1 mg PO BID Qty: 56 RF: 0 lisinopril 30 mg tablet 30 mg PO DAILY Qty: 30 RF: 2 hydrochlorothiazide 12.5 mg tablet 12.5 mg PO DAILY Qty: 30 RF: 2 omeprazole 20 mg capsule,delayed release(DR/EC) 20 mg PO DAILY Qty: 90 RF: 0 aspirin 81 mg tablet,delayed release (DR/EC) 81 mg PO DAILY Qty: 90 RF: 3 Discharge Orders: Discharge Order (Routine); Ordered 11/18/21 Ordered By: Karly Muro/Other Patient Handouts: Managing Type 2 Diabetes Admission Data Admit Date/Time: 11/17/21 21:55 Attending Provider: Jc Collins Admit Provider: Ric Balderrama Primary Care Provider: Marika Vasquez Other Providers: Harris Loya Other Interventions: Discharge Summary Assessment (RN) Last Done: 11/18/21 13:23 Coding Level of Care Code 58149 OBS Care - Discharge Diagnoses Intractable cyclical vomiting R11.15 Hypertension I10 Tobacco use Z72.0 Hyperlipidemia E78.5 Peripheral vascular disease I73.9 GERD (gastroesophageal reflux disease) K21.9 DM2 (diabetes mellitus, type 2) E11.9
== END 2021-11-18 17:22 | disposition home or self-care (01) ==
LOC: 2W 18:16 → ED 18:16 → SUATTDRO 21:55 → 2W 23:21

== ENCOUNTER 2021-12-04 10:36 | Observation (INO) ==
--- NOTE | 2021-12-04 10:45 | Emergency Department Note ---
Impression & Plan Vertebral artery stenosis, Vertigo, Nausea & vomiting ED Provider Note NAME: MARNI FERNANDO AGE: 71 SEX: F : 1950 ARRIVES VIA: Walk-In INFORMANT: Patient, ED PROVIDER(S): Connor Helton MD Chief Complaint: Dizziness, vomiting HPI: Patient presents due to concern for vertiginous symptoms that been ongoing approximately 1 month and fairly constant in duration in nature. No known etiology for the cause a month ago. The patient has had intermittent staggering to where she feels she needs to list to the left. Patient states it is sometimes worsened with movements. The patient does have some chronic ringing in her ears but no hearing loss no slurred speech facial droop or strokelike symptoms. The patient does smoke but denies any alcohol or drug use. Patient has any fevers chills chest pain shortness of breath. Patient has had associated nausea vomiting. The patient had noticed some right-sided ear pain. The patient denies any changes in elevations, air travel, or underwater activities. Patient was recently seen here approximate 2 weeks prior and was given meclizine. This is not. Her symptoms in addition to Zofran. ROS: See HPI for pertinent positives and negatives. A total of 10 systems were reviewed and otherwise negative. Past medical history: See below Surgical history: See below Social history: See below Physical Exam: GENERAL: NAD, wearing a mask, non-toxic. EYE EXAM: Normal conjunctiva. PERRL, no anisocoria and EOM's grossly intact w/o pain. NECK: Supple, no nuchal rigidity, no adenopathy, non-tender. No signs of meningismus. LUNGS: Clear to auscultation. Normal chest wall mechanics. HEART: NSR, no MRG. ABDOMEN: Abdomen soft, non-tender, normo-active bowel sounds, no masses, no rebound or guarding. BACK: No CVA TTP. SKIN: No rashes and no bruising. UPPER EXTREMITIES: Upper extremities are grossly normal. LOWER EXTREMITIES: Grossly normal, no edema. NEURO EXAM: A&O x3, cranial nerves II-XII grossly intact, normal speech, moves all 4 extremities on command w/o issue. Differential diagnoses: Benign positional vertigo, dehydration, hypovolemia, an emia, tumor, infection, hypoglycemia, electrolyte abnormalities, cardiac sources, intracerebral event, toxicologic, neurologic, as well as other pathologies. Course: Patient was seen and evaluated the bedside. Full history physical exam was performed. EKG interpreted by me Sinus bradycardia, rate of 55, wide QRS, left bundle branch block pattern. Left axis deviation. Biphasic T waves in 3 and aVF. Imaging Studies: See Below Cardiac monitoring: An order was placed for continuous cardiac monitoring. The monitor shows a rate of 72 with sinus rhythm. MDM: Patient was seen due to concern for vertiginous symptoms and associated nausea vomiting. Blood work is obtained along with CT of the head CT angiography of the head and neck. Patient was treated symptomatically with antinausea med ication in addition to steroid. Patient is a normal white count H&H and platelet count. The patient's kidney function shows a creatinine 1.5. Electrolytes are unremarkable. The patient does have mild elevation of bilirubin the patient has no right upper quadrant pain. Troponin not detectable. EKG showed some questionable biphasic T waves in 3 and aVF but the patient denies any chest pain and has a negative troponin. Covid negative. CT of the head is negative. CT angiography of the brain is negative. CT angio of the neck shows no concerning findings on the left side but the patient does have a 5 mm segment of severe to critical stenosis within the proximal right vertebral artery. I did speak with the on-call neurologist Dr. Amaro who stated that given the location this is likely not something that is unavailable but may explain the patient's symptoms. He does recommend MRI of the brain. They speak with the patient as patient is concerned about her symptoms and is unsure as to whether or not she can continue to care for self at home. I did Siuta the on- call hospitalist Dr. Collins and the patient was admitted to the medicine service. MRI was ordered and pending at the time of admission. Past Med/Surg History Medical History DM2 (diabetes mellitus, type 2) E. coli septicemia (12/2018) GERD (gastroesophageal reflux disease) HTN (hypertension) Hyperlipidemia Peripheral vascular disease Surgical History History of cholecystectomy S/P hysterectomy secondary to DUB Status post arterial stent multiple b/l legs Family History Father Hypertension Diabetes Mother Hypertension Diabetes Brother Colorectal cancer Sister Coronary heart disease Denies family history of Ovarian cancer Prostate cancer Myocardial infarction Breast cancer Stroke Social History Smoking Status: Never smoker Tobacco Type: Cigarettes Age Started Using Tobacco: 30; packs per day: 0.25; Second Hand Exposure: No; Hx Alcohol Use: No Hx Substance Use: No Preferred Language: Latvian Communication Ability: Effective Visual Impairment: No Limitations Hearing Ability: Normal Plate Gauger Required: No Beliefs That Will Affect Care: None marital status: / Current Living Situation: Alone current occupational status: retired How many Children do You have: 5 Feels Safe at Home: Yes Childhood Exposure to Second-Hand Smoke: No caffeine: Yes (coffee) during the past year weight has: remained stable Dental Care, Regularly: No Physical Activity Frequency: Does not Exercise Seatbelt Use: always Sunscreen Use: Yes Assistive Devices: None Allergies Allergies Allergy/AdvReac Type Severity Reaction Status Date / Time oxycodone AdvReac Intermediate "MAKES ME Unverified 12/04/21 11:13 SICK" Home Meds Home Medications Medication Instructions Recorded Confirmed cholecalciferol (vitamin D3) 1,250 50,000 unit PO WK 12/04/21 12/04/21 mcg (50,000 unit) capsule Previous Rx's Medication Instructions Recorded aspirin 81 mg tablet,delayed 81 mg PO DAILY #90 tab 04/25/21 release metformin 500 mg tablet 500 mg PO BID #180 tab 04/26/21 rosuvastatin 40 mg tablet 40 mg PO DAILY #90 tab 04/26/21 hydrochlorothiazide 12.5 mg tablet 12.5 mg PO DAILY #30 tab 05/28/21 lisinopril 30 mg tablet 30 mg PO DAILY #30 tab 05/28/21 meclizine 12.5 mg tablet 12.5 mg PO Q6H PRN #30 tab 11/18/21 omeprazole 20 mg capsule,delayed 20 mg PO DAILY #90 cap 11/28/21 release Results & Data (ED) Vital Signs Vital Signs - 24 hr 12/04/21 10:38 12/04/21 11:04 12/04/21 11:15 Temperature 36.6 C Temperature Source Temporal Artery Scan Pulse Rate 73 50 L Pulse Rate [Apical] 55 L Pulse Rate from SpO2 Sensor Pulse Rhythm Regular Pulse Strength Normal Respiratory Rate 20 12 Respiratory Effort / Characteristics Non-Labored Spontaneous Respiratory Depth Normal Normal Respiratory Pattern Regular Blood Pressure 199/91 H Blood Pressure [Left Arm] 176/103 H Blood Pressure Mean 127 Blood Pressure Mean [Left Arm] 127 Blood Pressure Position Sitting Pulse Oximetry 98 99 99 Oxygen Delivery Method Room Air Room Air Room Air Sepsis Recent Fever Within 48 Hours No Sepsis New/Unexplained Change in Mental Status No Sepsis Action Taken by Nursing No Action Required 12/04/21 11:36 12/04/21 12:00 12/04/21 12:30 Temperature Temperature Source Pulse Rate 52 L 72 51 L Pulse Rate [Apical] Pulse Rate from SpO2 Sensor 46 L 75 56 L Pulse Rhythm Pulse Strength Respiratory Rate 18 17 15 Respiratory Effort / Characteristics Respiratory Depth Respiratory Pattern Blood Pressure Blood Pressure [Left Arm] Blood Pressure Mean Blood Pressure Mean [Left Arm] Blood Pressure Position Pulse Oximetry 96 95 96 Oxygen Delivery Method Sepsis Recent Fever Within 48 Hours Sepsis New/Unexplained Change in Mental Status Sepsis Action Taken by Nursing 12/04/21 13:12 12/04/21 13:30 12/04/21 13:33 Temperature Temperature Source Pulse Rate 63 60 60 Pulse Rate [Apical] Pulse Rate from SpO2 Sensor 64 Pulse Rhythm Pulse Strength Respiratory Rate 16 10 L 10 L Respiratory Effort / Characteristics Respiratory Depth Respiratory Pattern Blood Pressure 201/92 H Blood Pressure [Left Arm] Blood Pressure Mean 128 Blood Pressure Mean [Left Arm] Blood Pressure Position Pulse Oximetry 100 84 L Oxygen Delivery Method Sepsis Recent Fever Within 48 Hours Sepsis New/Unexplained Change in Mental Status Sepsis Action Taken by Nursing 12/04/21 14:00 12/04/21 14:30 12/04/21 15:00 Temperature Temperature Source Pulse Rate 60 67 60 Pulse Rate [Apical] Pulse Rate from SpO2 Sensor 59 L Pulse Rhythm Pulse Strength Respiratory Rate 15 14 17 Respiratory Effort / Characteristics Respiratory Depth Respiratory Pattern Blood Pressure 185/94 H 181/81 H 195/127 H Blood Pressure [Left Arm] Blood Pressure Mean 124 114 149 Blood Pressure Mean [Left Arm] Blood Pressure Position Pulse Oximetry 97 Oxygen Delivery Method Sepsis Recent Fever Within 48 Hours Sepsis New/Unexplained Change in Mental Status Sepsis Action Taken by [facility] Medications Current Medication List: was personally reviewed by me Laboratory Data Attestation: I reviewed the patient's lab results. Result diagrams: 12/04/21 11:11 12/04/21 11:11 Lab Results 12/04/21 12/04/21 12/04/21 Range/Units 11:11 11:11 15:29 WBC 6.53 (4.8-10.8) K/uL RBC 5.02 (4.2-5.4) M/uL Hgb 14.9 (12.0-16.0) g/dL Hct 42.6 (37-47) % MCV 84.9 (80-100) fL MCH 29.7 (25-34) pg MCHC 35.0 (32-36) g/dL RDW Std Deviation 45.9 (36.4-46.3) fL RDW Coeff of Billy 14.8 H (11.5-14.5) % Plt Count 173 (130-400) K/uL MPV 10.3 (7.4-10.4) fL Immature Gran % (Auto) 0.2 % Neut % (Auto) 74.7 % Lymph % (Auto) 17.8 % [place] % (Auto) 4.3 % Eos % (Auto) 2.5 % Baso % (Auto) 0.5 % Neut # (Auto) 4.89 (1.4-6.5) K/uL Lymph # (Auto) 1.16 L (1.2-3.4) K/uL [place] # (Auto) 0.28 (0.11-0.59) K/uL Eos # (Auto) 0.16 (0-0.5) K/uL Baso # (Auto) 0.03 (0-0.2) K/uL Immature Gran # (Auto) 0.01 (0.00-0.02) K/uL Sodium 141 (136-145) mmol/L Potassium 3.7 (3.5-5.1) mmol/L Chloride 104 (98-107) mmol/L Carbon Dioxide 27 (21-32) mmol/L Anion Gap 10 (3-11) BUN 23 (6-23) mg/dl Creatinine 1.50 H (0.6-1.2) mg/dl Est Cr Clr Drug Dosing 32.2 ml/min Est GFR ( Amer) 40.2 ml/min Est GFR (Non-Af Amer) 34.7 ml/min BUN/Creatinine Ratio 15.3 (10-20) Glucose 156 H (70-99(Fasting)) mg/dl Calcium 9.5 (8.5-10.1) mg/dl Total Bilirubin 1.1 H (0.2-1.0) mg/dl AST 11 L (13-39) U/L ALT 6 L (7-52) U/L Alkaline Phosphatase 77 (34-104) U/L Troponin I < 0.03 (0-0.04) ng/ml Total Protein 7.7 (6.0-8.3) gm/dl Albumin 3.9 (3.4-5.0) gm/dl Globulin 3.8 (2.5-4.0) gm/dl Albumin/Globulin Ratio 1.0 (0.9-2) SARS-CoV-2, RNA, NAAT NEGATIVE (NEGATIVE) Administered Medications Discontinued Medications Diphenhydramine HCl (Diphenhydramine 50 Mg/Ml Vial) 12.5 mg IV NOW STA Stop: 12/04/21 11:05 Last Admin: 12/04/21 11:35 Dose: 12.5 mg Documented by: [id number] Sodium Chloride (Nss) 500 mls @ 999 mls/hr IV .Q31M JENNY Stop: 12/04/21 11:45 Last Infusion: 12/04/21 13:56 Dose: 0 mls/hr Documented by: [id number] Admin: 12/04/21 11:35 Dose: 999 mls/hr Documented by: [id number] Ioversol (Optiray 320 125ml) 120 ml IV ONCE ONE Stop: 12/04/21 13:09 Last Admin: 12/04/21 13:08 Dose: 120 ml Documented by: [id number] Methylprednisolone (Methylprednisolone 40 Mg/Ml Vial) 40 mg IV NOW STA Stop: 12/04/21 11:05 Last Admin: 12/04/21 11:36 Dose: 40 mg Documented by: [id number] Prochlorperazine (Prochlorperazine 5 Mg/Ml 2 Ml Vial) 5 mg IV NOW STA Stop: 12/04/21 11:05 Last Admin: 12/04/21 11:36 Dose: 5 mg Documented by: [id number] Imaging Data Radiologist's Impression: Head CT 12/04/21 11:[address] OF THE BRAIN; CT ANGIOGRAM OF THE BRAIN CLINICAL HISTORY: Vertigo. Vomiting. COMPARISON STUDY: CT of the brain dated 11/17/2021. TECHNIQUE: Unenhanced axial CT scan of the brain is performed. Subsequently, following the IV administration of 120 cc of Optiray 320, CT angiogram of the brain was performed from the skull base to the vertex. Images are reviewed in the axial, sagittal, and coronal planes. 3-D MIPS images are created and assessed. IV contrast was administered without complication. A dose lowering technique was utilized adhering to the principles of ALARA. FINDINGS: Brain parenchyma: There is age-related involutional change noting moderate subcortical and periventricular microangiopathic disease. There is no hemorrhage, mass effect, or evidence of acute territorial ischemia by CT criteria. There is no evidence of enhancing mass lesion on the angiogram phase images. No extra-axial fluid collection is seen. Davis-white matter differentiation is preserved. Ventricles, sulci, and cisterns: Prominent secondary to involutional change. CT angiogram of the brain: There is atherosclerotic calcification of the cavernous carotid and vertebral arteries. The internal carotid arteries are widely patent, as are the anterior and middle cerebral arteries. The vertebrobasilar system and posterior cerebral arteries are widely patent. The left vertebral artery is dominant. The intracranial right vertebral artery is diminutive. There is no aneurysm, high-grade stenosis, or focal vessel cutoff identified throughout the intracranial circulation. Dural sinuses: Clear as visualized. Orbits: The bony orbits are intact. The orbital contents are normal as visualized. Sinuses and mastoids: The visualized paranasal sinuses are clear. The mastoid air cells are well pneumatized. Calvarium: The skeletal structures are osteopenic. The calvarium appears intact. IMPRESSION: 1. There is no hemorrhage, mass effect, or evidence of acute territorial ischemia by CT criteria. 2. Unremarkable CT angiogram of the brain. ACT 112: Negative or not required by law. Electronically signed by: Hernán Fair M.D. 12/04/2021 1:23 PM Head CTA 12/04/21 11:[address] OF THE BRAIN; CT ANGIOGRAM OF THE BRAIN CLINICAL HISTORY: Vertigo. Vomiting. COMPARISON STUDY: CT of the brain dated 11/17/2021. TECHNIQUE: Unenhanced axial CT scan of the brain is performed. Subsequently, following the IV administration of 120 cc of Optiray 320, CT angiogram of the brain was performed from the skull base to the vertex. Images are reviewed in the axial, sagittal, and coronal planes. 3-D MIPS images are created and assessed. IV contrast was administered without complication. A dose lowering technique was utilized adhering to the principles of ALARA. FINDINGS: Brain parenchyma: There is age-related involutional change noting moderate subcortical and periventricular microangiopathic disease. There is no hemorrhage, mass effect, or evidence of acute territorial ischemia by CT cr iteria. There is no evidence of enhancing mass lesion on the angiogram phase images. No extra-axial fluid collection is seen. Davis-white matter differentiation is preserved. Ventricles, sulci, and cisterns: Prominent secondary to involutional change. CT angiogram of the brain: There is atherosclerotic calcification of the cavernous carotid and vertebral arteries. The internal carotid arteries are widely patent, as are the anterior and middle cerebral arteries. The vertebrobasilar system and posterior cerebral arteries are widely patent. The left vertebral artery is dominant. The intracranial right vertebral artery is diminutive. There is no aneurysm, high-grade stenosis, or focal vessel cutoff identified throughout the intracranial circulation. Dural sinuses: Clear as visualized. Orbits: The bony orbits are intact. The orbital contents are normal as visualized. Sinuses and mastoids: The visualized paranasal sinuses are clear. The mastoid air cells are well pneumatized. Calvarium: The skeletal structures are osteopenic. The calvarium appears intact. IMPRESSION: 1. There is no hemorrhage, mass effect, or evidence of acute territorial ischemia by CT criteria. 2. Unremarkable CT angiogram of the brain. ACT 112: Negative or not required by law. Electronically signed by: Hernán Fair M.D. 12/04/2021 1:23 PM Neck CTA 12/04/21 11:04 NECK CTA HISTORY: vertigo, vomiting TECHNIQUE: Multiaxial CT images of the neck were performed following the intravenous administration of contrast to evaluate the major cervical vessels. Maximum intensity projection images were also obtained. All measurements were calculated based on NASCET criteria. A dose lowering technique was utilized adhering to the principles of ALARA. COMPARISON STUDY: None. FINDINGS: The aortic arch and proximal great vessels are widely patent. Moderate calcified plaque within the bilateral carotid bifurcations. No significant stenosis, occlusion, or dissection within the left cervical internal carotid artery. There is approximately 40% focal narrowing at the takeoff of the right internal carotid artery . The remaining right cervical internal carotid artery is widely patent. There is a dominant left vertebral artery which demonstrates mild multifocal narrowing proximally due to the calcified plaque. There is a hypoplastic right vertebral artery which demonstrates severe stenosis at the takeoff. There is also a 5 mm segment of severe/critical stenosis within the proximal right vertebral artery on image 182. This demonstrates greater than 90% stenosis. Remaining portions of the mid to distal right cervical vertebral artery are widely patent. There is moderate to severe multifocal narrowing within the hypoplastic distal intradural segment of the right vertebral artery. Heterogeneous and mildly enlarged thyroid gland. Bilateral common carotid arteries are widely patent. IMPRESSION: 1. Approximately 40% focal stenosis at the takeoff of the right internal carotid artery due to the calcified plaque. 2. No significant stenosis, occlusion, or dissection within the left carotid arteries. 3. A 5 mm segment of severe/critical stenosis within the proximal right vertebral artery. 4. Mild multifocal narrowing within the proximal left vertebral artery due to the calcified plaque. 5. Additional findings as described above. ACT 112: Negative or not required by law. Electronically signed by: Sae Mosquera M.D. 12/04/2021 1:35 PM Discharge Plan Visit Data Chief Complaint: Vomiting Stated Complaint: DIZZY AND VOMITING Discharge Problem: Vertebral artery stenosis, Vertigo, Nausea & vomiting Patient Disposition: Admitted As Inpatient Forms Stand Alone Forms: [facility] Prescriptions Prescriptions: No Action metformin 500 mg tablet 500 mg PO BID Qty: 180 RF: 0 rosuvastatin 40 mg tablet 40 mg PO DAILY Qty: 90 RF: 0 lisinopril 30 mg tablet 30 mg PO DAILY Qty: 30 RF: 2 hydrochlorothiazide 12.5 mg tablet 12.5 mg PO DAILY Qty: 30 RF: 2 aspirin 81 mg tablet,delayed release (DR/EC) 81 mg PO DAILY Qty: 90 RF: 3 omeprazole 20 mg capsule,delayed release(DR/EC) 20 mg PO DAILY Qty: 90 RF: 0 meclizine 12.5 mg Tablet 12.5 mg PO Q6H PRN (Reason: dizziness) Qty: 30 RF: 0 cholecalciferol (vitamin D3) 1,250 mcg (50,000 unit) capsule 50,000 unit PO WK RF: 0 Referrals Referrals: Marika Vasquez DO [Primary Care Provider] -
[2021-12-04] MEDS ORDERED: PROCHLORPERAZINE 5 MG/ML 2 ML VIAL IV STA (11:04)
[2021-12-04] MEDS ORDERED: diphenhydrAMINE 50 MG/ML VIAL IV STA (11:04)
[2021-12-04] MEDS ORDERED: SODIUM CHLORIDE 0.9% 500 ML IV SCH (11:15)
[2021-12-04 11:58] LABS: Basophils # (auto) 0.03 K/uL (0-0.2); Basophils % (auto) 0.5 %; Eosinophils # (auto) 0.16 K/uL (0-0.5); Eosinophils % (auto) 2.5 %; Hematocrit (blood only) 42.6 % (37-47); Hemoglobin 14.9 g/dL (12.0-16.0); Immature Granulocytes # (auto) 0.01 K/uL (0.00-0.02); Immature Granulocytes % (auto) 0.2 %; Lymphocytes # (auto) 1.16 K/uL (1.2-3.4); Lymphocytes % (auto) 17.8 %; Mean Corpuscular Hemoglobin 29.7 pg (25-34); Mean Corpuscular Volume 84.9 fL (80-100); Mean Platelet Volume 10.3 fL (7.4-10.4); Monocytes # (auto) 0.28 K/uL (0.11-0.59); Monocytes % (auto) 4.3 %; Neutrophils # (auto) 4.89 K/uL (1.4-6.5); Neutrophils % (auto) 74.7 %; Platelet Count 173 K/uL (130-400); RDW Coefficient of Variation 14.8 % (11.5-14.5); RDW Standard Deviation 45.9 fL (36.4-46.3); Red Blood Count 5.02 M/uL (4.2-5.4); White Blood Count 6.53 K/uL (4.8-10.8)
[2021-12-04 12:45] LABS: Troponin I < 0.03 ng/ml (0-0.04)
[2021-12-04 12:49] LABS: Alanine Aminotransferase 6 U/L (7-52); Albumin Level 3.9 gm/dl (3.4-5.0); Alkaline Phosphatase 77 U/L (34-104); Anion Gap 10 (3-11); Aspartate Aminotransferase 11 U/L (13-39); BUN Creatinine Ratio 15.3 (10-20); Bilirubin,Total 1.1 mg/dl (0.2-1.0); Blood Urea Nitrogen 23 mg/dl (6-23); Calcium 9.5 mg/dl (8.5-10.1); Carbon Dioxide 27 mmol/L (21-32); Chloride 104 mmol/L (98-107); Creatinine Clr Calc Pharmacy 32.2 ml/min; Est GFR (African American) 40.2 ml/min; Est GFR (Non-African American) 34.7 ml/min; Globulin 3.8 gm/dl (2.5-4.0); Glucose 156 mg/dl (70-99(Fasting)); Potassium 3.7 mmol/L (3.5-5.1); Sodium 141 mmol/L (136-145); Total Protein 7.7 gm/dl (6.0-8.3)
[2021-12-04] MEDS ORDERED: OPTIRAY 320 125ml IV ONE (13:08)
--- NOTE | 2021-12-04 13:25 | CT Scan Report ---
UNENHANCED CT OF THE BRAIN; CT ANGIOGRAM OF THE BRAIN CLINICAL HISTORY: Vertigo. Vomiting. COMPARISON STUDY: CT of the brain dated 11/17/2021. TECHNIQUE: Unenhanced axial CT scan of the brain is performed. Subsequently, following the IV adminis tration of 120 cc of Optiray 320, CT angiogram of the brain was performed from the skull base to the vertex. Images are reviewed in the axial, sagittal, and coronal planes. 3-D MIPS images are created a nd assessed. IV contrast was administered without complication. A dose lowering technique was utiliz ed adhering to the principles of ALARA. FINDINGS: Brain parenchyma: There is age-related involutional change noting moderate subcortical and periventri cular microangiopathic disease. There is no hemorrhage, mass effect, or evidence of acute territorial ischemia by CT criteria. There is no evidence of enhancing mass lesion on the angiogram phase images . No extra-axial fluid collection is seen. Davis-white matter differentiation is preserved. Ventricles, sulci, and cisterns: Prominent secondary to involutional change. CT angiogram of the brain: There is atherosclerotic calcification of the cavernous carotid and verteb ral arteries. The internal carotid arteries are widely patent, as are the anterior and middle cerebra l arteries. The vertebrobasilar system and posterior cerebral arteries are widely patent. The left ve rtebral artery is dominant. The intracranial right vertebral artery is diminutive. There is no aneury sm, high-grade stenosis, or focal vessel cutoff identified throughout the intracranial circulation. Dural sinuses: Clear as visualized. Orbits: The bony orbits are intact. The orbital contents are normal as visualized. Sinuses and mastoids: The visualized paranasal sinuses are clear. The mastoid air cells are well pneu matized. Calvarium: The skeletal structures are osteopenic. The calvarium appears intact. IMPRESSION: 1. There is no hemorrhage, mass effect, or evidence of acute territorial ischemia by CT criteria. 2. Unremarkable CT angiogram of the brain. ACT 112: Negative or not required by law. Electronically signed by: Hernán Fair M.D. 12/04/2021 1:23 PM
--- NOTE | 2021-12-04 13:37 | CT Scan Report ---
NECK CTA HISTORY: vertigo, vomiting TECHNIQUE: Multiaxial CT images of the neck were performed following the intravenous administration o f contrast to evaluate the major cervical vessels. Maximum intensity projection images were also obta ined. All measurements were calculated based on NASCET criteria. A dose lowering technique was utili zed adhering to the principles of ALARA. COMPARISON STUDY: None. FINDINGS: The aortic arch and proximal great vessels are widely patent. Moderate calcified plaque wi thin the bilateral carotid bifurcations. No significant stenosis, occlusion, or dissection within the left cervical internal carotid artery. There is approximately 40% focal narrowing at the takeoff of the right internal carotid artery . The remaining right cervical internal carotid artery is widely pa tent. There is a dominant left vertebral artery which demonstrates mild multifocal narrowing proximal ly due to the calcified plaque. There is a hypoplastic right vertebral artery which demonstrates chas re stenosis at the takeoff. There is also a 5 mm segment of severe/critical stenosis within the proxi mal right vertebral artery on image 182. This demonstrates greater than 90% stenosis. Remaining porti ons of the mid to distal right cervical vertebral artery are widely patent. There is moderate to chas re multifocal narrowing within the hypoplastic distal intradural segment of the right vertebral arter y. Heterogeneous and mildly enlarged thyroid gland. Bilateral common carotid arteries are widely francois nt. IMPRESSION: 1. Approximately 40% focal stenosis at the takeoff of the right internal carotid artery due to the ca lcified plaque. 2. No significant stenosis, occlusion, or dissection within the left carotid arteries. 3. A 5 mm segment of severe/critical stenosis within the proximal right vertebral artery. 4. Mild multifocal narrowing within the proximal left vertebral artery due to the calcified plaque. 5. Additional findings as described above. ACT 112: Negative or not required by law. Electronically signed by: Sae Mosquera M.D. 12/04/2021 1:35 PM
--- NOTE | 2021-12-04 14:53 | History & Physical Report ---
Date of Service December 04, 2021 Assessment & Plan (1) Acute CVA (cerebrovascular accident): Plan: Left cerebellar subacute CVA Suspect stroke event was prior to her last admission therefore no need for passive hypertension, continue on her usual BP meds as below ?due to left vertebral artery plaque disease ASA + clopidogrel Continue rosuvastatin 40mg PO daily HbA1C and lipid panel in am TTE PT/OT/SLT Consult neurology (2) Vertigo: Plan: Previously thought to be secondary to labyrinthitis however with hindsight suspect CVA occurred on November 12. PT/OT (3) DM2 (diabetes mellitus, type 2): Plan: HbA1C 6.4 [11/28/21]. Hold metformin Consult pharmacy for glycemic control while inpatient with insulin. (4) HTN (hypertension): Plan: Continue lisinopril 30mg PO daily and HCTZ 12.5mg PO daily Hydralazine 5mg IV q4h PRN for sBP > 200 Can likely more aggressively lower BP tomorrow if neurology agrees stroke is subacute (5) GERD (gastroesophageal reflux disease): Plan: Patient reports not well controlled Start famotidine 20mg IV HS in addition to switching her usual (6) Peripheral vascular disease: Plan: ASA, clopidogrel and rosuvastatin as above (7) Hyperlipidemia: Plan: Continue rosuvastatin 40mg PO daily (8) Nausea & vomiting: Plan: Ondansetron 4mg IV q4h PRN Plan: VTE Prophylaxis - Lovenox 40mg SQ daily Diet - heart healthy, T2DM, clear liquid Disposition - observation to med/tele Admission and Anticipated Discharge Date Admission Date: December 04, 2021 History of Present Illness Chief Complaint: Vertigo Primary Care Provider: DO Quiana Huangin is a 71 year old female who presents to the ER with persistent vertigo, nausea and vomiting. She reports similar complaints to when she was hospitalized overnight here from November 17-2021 (Symptoms began on November 12). On that occasion her symptoms resolved overnight and she was felt to have acute labyrinthitis due to recent upper respiratory illness. She reports her symptoms continued as soon as she got home however. Her main concern is ongoing nausea and vomiting as she has not eaten much since her symptoms started. Her balance has also been affected and she has been falling to the left side. She denies any vision problems other than room spinning sensation / dizziness on moving her head. No change in speech or hearing. No focal extremity weakness of lack of co-ordination. She is right handed. She reports not taking her medications regularly for the last 2 months but for the last week she has been trying to take her blood pressure medication again. She does not think she was taking aspirin or rosuvastatin when her symptoms started and presumably her stroke occurred. In the ER CT head showed no acute pathology, CTA head/neck showed no significant stenosis or occlusion of carotid arteries, 40% focal stenosis of right ICA, 5mm severe/critical stenosis of proximal right vertebral artery, multifocal narrowing within proximal left vertebral artery due to calcified plaque. MRI brain 1.5 x 0.6cm left cerebellar hemisphere restricted diffusion consistent with small acute to subacute infarct. She was referred to medicine for admission and ongoing management prior to MRI results for vertigo. Allergies Allergy/AdvReac Type Severity Reaction Status Date / Time oxycodone AdvReac Intermediate "MAKES ME Unverified 12/04/21 11:13 SICK" Home Medications Medication Instructions Recorded Confirmed Type aspirin 81 mg tablet,delayed 81 mg PO DAILY #90 tab 04/25/21 12/04/21 Rx release metformin 500 mg tablet 500 mg PO BID #180 tab 04/26/21 12/04/21 Rx rosuvastatin 40 mg tablet 40 mg PO DAILY #90 tab 04/26/21 12/04/21 Rx hydrochlorothiazide 12.5 mg tablet 12.5 mg PO DAILY #30 tab 05/28/21 12/04/21 Rx lisinopril 30 mg tablet 30 mg PO DAILY #30 tab 05/28/21 12/04/21 Rx meclizine 12.5 mg tablet 12.5 mg PO Q6H PRN #30 tab 11/18/21 12/04/21 Rx omeprazole 20 mg capsule,delayed 20 mg PO DAILY #90 cap 11/28/21 12/04/21 Rx release cholecalciferol (vitamin D3) 1,250 50,000 unit PO WK 12/04/21 12/04/21 History mcg (50,000 unit) capsule Past Med/Surg History Medical History DM2 (diabetes mellitus, type 2) E. coli septicemia (12/2018) GERD (gastroesophageal reflux disease) HTN (hypertension) Hyperlipidemia Peripheral vascular disease Surgical History History of cholecystectomy S/P hysterectomy secondary to DUB Status post arterial stent multiple b/l legs Family History Father Hypertension Diabetes Mother Hypertension Diabetes Brother Colorectal cancer Sister Coronary heart disease Denies family history of Ovarian cancer Prostate cancer Myocardial infarction Breast cancer Stroke Social History Smoking Status: Former smoker Tobacco Type: Cigarettes Age Started Using Tobacco: 30; packs per day: 0.25; Second Hand Exposure: No; Do You Dip or Chew Tobacco: No; Tobacco Cessation Education Requested by Patient: No Hx Alcohol Use: No Hx Substance Use: No Preferred Language: [place] Communication Ability: Effective Visual Impairment: No Limitations Hearing Ability: Normal Picture Frame Maker Required: No Beliefs That Will Affect Care: None marital status: / Current Living Situation: Alone current occupational status: retired How many Children do You have: 5 Other Information That Helps Us Care for You: No Feels Safe at Home: Yes Safety Concerns: Feels Safe At This Time Childhood Exposure to Second-Hand Smoke: No caffeine: Yes (coffee) during the past year weight has: remained stable Dental Care, Regularly: No Physical Activity Frequency: Does not Exercise Seatbelt Use: always Sunscreen Use: Yes Assistive Devices: Glasses Review of Systems Review of Systems: All systems reviewed & are unremarkable except as noted in HPI & below Physical Exam Constitutional: well developed; + not well nourished and no acute distress Eyes: PERRL, conjunctivae normal, anicteric sclerae EOM intact bilaterally (without diplopia) and + nystagmus (right gaze) ENMT: external ear and nose normal, oropharynx normal Neck: trachea midline, no thyromegaly Respiratory: normal respiratory effort, lungs clear to auscultation Cardiovascular: RRR, no murmur, no edema Gastrointestinal (Abdomen): Inspection/Auscultation: normal bowel sounds Percussion/Palpation: abdomen soft; abdomen nontender, no guarding and abdomen not rigid Musculoskeletal: no cyanosis or clubbing, extremities motor strength 5/5 Skin: no rashes, warm and dry Neurologic: moves all extremities and awake; no focal motor deficits (no lateralizing weakness) and not confused Speech / Cognition: normal speech Motor/Sensory: no tremor and no pronator drift Cranial Nerves: PERRL, EOM intact bilaterally, normal facial strength, tongue midline, able to rotate head bilaterally and able to elevate shoulders bilaterally; + nystagmus Coordination: normal [id number] test Psychiatric: A+Ox3, euthymic affect Genitourinary: no CVA tenderness Results & Data Results & Data ([facility]) Vital Signs (Past 12 Hours) Vital Signs Temp Pulse Pulse Resp BP BP Pulse Ox 12/04/21 14:00 60 15 185/94 H 12/04/21 13:33 60 10 L 201/92 H 12/04/21 13:30 60 10 L 84 L 12/04/21 13:12 63 16 100 12/04/21 12:30 51 L 15 96 12/04/21 12:00 72 17 95 12/04/21 11:36 52 L 18 96 12/04/21 11:15 55 L 12 176/103 H 99 12/04/21 11:04 50 L 99 12/04/21 10:38 36.6 C 73 20 199/91 H 98 Laboratory Results Abnormal lab results 12/04/21 12/04/21 Range/Units 11:11 11:11 RDW Coeff of Billy 14.8 H (11.5-14.5) % Lymph # (Auto) 1.16 L (1.2-3.4) K/uL Creatinine 1.50 H (0.6-1.2) mg/dl Glucose 156 H (70-99(Fasting)) mg/dl Total Bilirubin 1.1 H (0.2-1.0) mg/dl AST 11 L (13-39) U/L ALT 6 L (7-52) U/L Diagnostic Findings UNENHANCED CT OF THE BRAIN; CT ANGIOGRAM OF THE BRAIN CLINICAL HISTORY: Vertigo. Vomiting. COMPARISON STUDY: CT of the brain dated 11/17/2021. TECHNIQUE: Unenhanced axial CT scan of the brain is performed. Subsequently, following the IV administration of 120 cc of Optiray 320, CT angiogram of the brain was performed from the skull base to the vertex. Images are reviewed in the axial, sagittal, and coronal planes. 3-D MIPS images are created and assessed. IV contrast was administered without complication. A dose lowering technique was utilized adhering to the principles of ALARA. FINDINGS: Brain parenchyma: There is age-related involutional change noting moderate subcortical and periventricular microangiopathic disease. There is no hem orrhage, mass effect, or evidence of acute territorial ischemia by CT criteria. There is no evidence of enhancing mass lesion on the angiogram phase images. No extra-axial fluid collection is seen. Davis-white matter differentiation is preserved. Ventricles, sulci, and cisterns: Prominent secondary to involutional change. CT angiogram of the brain: There is atherosclerotic calcification of the ca vernous carotid and vertebral arteries. The internal carotid arteries are widely patent, as are the anterior and middle cerebral arteries. The vertebrobasilar system and posterior cerebral arteries are widely patent. The left vertebral artery is dominant. The intracranial right vertebral artery is diminutive. There is no aneurysm, high-grade stenosis, or focal vessel cutoff identified throughout the intracranial circulation. Dural sinuses: Clear as visualized. Orbits: The bony orbits are intact. The orbital contents are normal as visualized. Sinuses and mastoids: The visualized paranasal sinuses are clear. The mastoid air cells are well pneumatized. Calvarium: The skeletal structures are osteopenic. The calvarium appears intact. IMPRESSION: 1. There is no hemorrhage, mass effect, or evidence of acute territorial ischemia by CT criteria. 2. Unremarkable CT angiogram of the brain. NECK CTA HISTORY: vertigo, vomiting TECHNIQUE: Multiaxial CT images of the neck were performed following the intravenous administration of contrast to evaluate the major cervical vessels. Maximum intensity projection images were also obtained. All measurements were calculated based on NASCET criteria. A dose lowering technique was utilized adhering to the principles of ALARA. COMPARISON STUDY: None. FINDINGS: The aortic arch and proximal great vessels are widely patent. Moderate calcified plaque within the bilateral carotid bifurcations. No significant stenosis, occlusion, or dissection within the left cervical internal carotid artery. There is approximately 40% focal narrowing at the takeoff of the right internal carotid artery . The remaining right cervical internal carotid artery is widely patent. There is a dominant left vertebral artery which demonstrates mild multifocal narrowing proximally due to the calcified plaque. There is a hypoplastic right vertebral artery which demonstrates severe stenosis at the takeoff. There is also a 5 mm segment of severe/critical stenosis within the proximal right vertebral artery on image 182. This demonstrates greater than 90% stenosis. Remaining portions of the mid to distal right cervical vertebral artery are widely patent. There is moderate to severe multifocal narrowing within the hypoplastic distal intradural segment of the right vertebral artery. Heterogeneous and mildly enlarged thyroid gland. Bilateral common carotid arteries are widely patent. IMPRESSION: 1. Approximately 40% focal stenosis at the takeoff of the right internal carotid artery due to the calcified plaque. 2. No significant stenosis, occlusion, or dissection within the left carotid arteries. 3. A 5 mm segment of severe/critical stenosis within the proximal right vertebral artery. 4. Mild multifocal narrowing within the proximal left vertebral artery due to the calcified plaque. 5. Additional findings as described above. MRI OF THE BRAIN WITHOUT CONTRAST CLINICAL HISTORY: Posterior circulation symptoms, R vert narrowing. COMPARISON STUDY: Head CT and CTA of the head performed earlier today. TECHNIQUE: Utilizing a 1.5 Rowan magnet and dedicated coil, multiplanar, multiecho imaging of the brain was performed without IV contrast. FINDINGS: Mild T2 hyperintensity is noted within the posterior left cerebellar hemisphere shown best on coronal FLAIR image 22 of 27. There is subtle corresponding hyperintensity on the diffusion-weighted sequence on axial image 5 of 23 which is hypointense on the ADC map. This favors a subacute to acute infarct and measures 1.5 x 0.6 cm. No acute intracranial hemorrhage, midline shift or mass effect is present. Ventricular system is unremarkable. Basal cisterns are patent. Prominence of the extra-axial spaces overlying the convexities is due to central atrophy. No intracranial masses identified on this unenhanced exam. Numerous white matter T2 hyperintense foci favor small vessel disease. Old lacunar infarct within left cerebellar hemisphere is present. Ca lvarial signal is normal. No intracranial masses are identified on this unenhanced exam. IMPRESSION: 1. 1.5 x 0.6 cm T2 hyperintense focus within the left cerebellar hemisphere with corresponding restricted diffusion. This favors a small acute to subacute infarct. No mass effect. No acute hemorrhage. 2. Moderate atrophy and small vessel disease. Medications Administered ER Medications Given: NSS 500ml bolus Prochlorperazine 5mg IV Diphenhydramine 12.5mg IV Solu-medrol 40mg IV ECG Indication: chest pain Rate (beats per minute): 55 Findings: + LBBB and + left axis deviation; no acute ischemic change Comparison ECG Date: from (November 17, 2021) Change: no significant change (PVCs no longer present) Code Status & VTE Plan Code Status Full VTE Prophylaxis Plan VTE Prophylaxis will be ordered: Yes PG Care Time/CCT Total # of Minutes Spent Total Time Spent with Patient: Total time spent is greater than 50% in coordination of care (as documented) at patient's floor/unit and/or counseling patient: Coding Level of Care Code INT OBSERVATION CARE 70M LVL 3 Diagnoses Vertigo R42 DM2 (diabetes mellitus, type 2) E11.9 HTN (hypertension) I10 GERD (gastroesophageal reflux disease) K21.9 Peripheral vascular disease I73.9 Hyperlipidemia E78.5 Nausea & vomiting R11.2 Vomiting type: unspecified Acute CVA (cerebrovascular accident) I63.9 (1) Nausea & vomiting Vomiting type: unspecified Qualified Code(s): R11.2 - Nausea with vomiting, unspecified
--- NOTE | 2021-12-04 18:01 | Magnetic Resonance Report ---
MRI OF THE BRAIN WITHOUT CONTRAST CLINICAL HISTORY: Posterior circulation symptoms, R vert narrowing. COMPARISON STUDY: Head CT and CTA of the head performed earlier today. TECHNIQUE: Utilizing a 1.5 Rowan magnet and dedicated coil, multiplanar, multiecho imaging of the bra in was performed without IV contrast. FINDINGS: Mild T2 hyperintensity is noted within the posterior left cerebellar hemisphere shown best on coronal FLAIR image 22 of 27. There is subtle corresponding hyperintensity on the diffusion-weight ed sequence on axial image 5 of 23 which is hypointense on the ADC map. This favors a subacute to acu te infarct and measures 1.5 x 0.6 cm. No acute intracranial hemorrhage, midline shift or mass effect is present. Ventricular system is unremarkable. Basal cisterns are patent. Prominence of the extra-ax ial spaces overlying the convexities is due to central atrophy. No intracranial masses identified on this unenhanced exam. Numerous white matter T2 hyperintense foci favor small vessel disease. Old lacu kush infarct within left cerebellar hemisphere is present. Calvarial signal is normal. No intracranial masses are identified on this unenhanced exam. IMPRESSION: 1. 1.5 x 0.6 cm T2 hyperintense focus within the left cerebellar hemisphere with corresponding restri cted diffusion. This favors a small acute to subacute infarct. No mass effect. No acute hemorrhage. 2. Moderate atrophy and small vessel disease. ACT 112: Negative or not required by law. Electronically signed by: Sukumar Lindo M.D. 12/04/2021 5:58 PM
[2021-12-04] MEDS ORDERED: ACETAMINOPHEN 325 MG TAB PO PRN (18:25)
[2021-12-04] MEDS ORDERED: ONDANSETRON INJ 2 MG/ML 2 ML VIAL IV PRN (18:25)
[2021-12-04] MEDS ORDERED: PHARMACIST DISCHARGE MED REC CONSULT PRN (18:56)
[2021-12-04] MEDS ORDERED: PHARMACY GLYCEMIC MGMT CONSULT PRN (19:16)
[2021-12-04] MEDS ORDERED: GLUCOSE 40% GEL 15 GM TUBE PO PRN (20:00)
[2021-12-04] MEDS ORDERED: CARBOHYDRATES FOR HYPOGLYCEMIA PO PRN (20:00)
[2021-12-04] MEDS ORDERED: GLUCOSE 10 TABS/TUBE PO PRN (20:00)
[2021-12-04] MEDS ORDERED: DEXTROSE 50% 50 ML SYRINGE IV PRN (20:00)
[2021-12-04] MEDS ORDERED: GLUCAGON FOR INJ 1 MG VIAL IM PRN (20:00)
[2021-12-04] MEDS: INSULIN ASPART PER UNIT SC SCH ×2 (20:15→22:10)
[2021-12-04] MEDS ORDERED: CLOPIDOGREL BISULFATE 300 MG TAB PO STA (20:41)
[2021-12-04] MEDS ORDERED: ASPIRIN 81 MG CHEW PO STA (20:42)
[2021-12-04] MEDS ORDERED: hydrALAZINE HCL 20 MG/ML VIAL IV PRN (20:44)
[2021-12-04] MEDS ORDERED: ALUMINUM/MAGNESIUM SUSP 30 ML UDC PO PRN (20:51)
[2021-12-04] MEDS ORDERED: FAMOTIDINE 20 MG in SYRINGE 3 ML IV SCH (21:30)
[2021-12-05] MEDS: INSULIN ASPART PER UNIT SC SCH ×5 (00:06→17:13)
--- NOTE | 2021-12-05 07:10 | Electrocardiogram Report ---
Test Reason : Blood Pressure : / mmHG Vent. Rate : 055 BPM Atrial Rate : 055 BPM P-R Int : 166 ms QRS Dur : 126 ms QT Int : 476 ms P-R-T Axes : 017 -38 010 degrees QTc Int : 455 ms Sinus bradycardia with Premature atrial complexes Left axis deviation Left bundle branch block Abnormal ECG When compared with ECG of 17-NOV-2021 18:28, Premature ventricular complexes are no longer Present Premature atrial complexes are now Present Confirmed by Isaac Fairchild ([id number]) on 12/05/2021 7:10:22 AM Referred By: REFERRED SELF Confirmed By:Isaac Fairchild
[2021-12-05 07:28] LABS: Basophils # (auto) 0.02 K/uL (0-0.2); Basophils % (auto) 0.3 %; Eosinophils # (auto) 0.09 K/uL (0-0.5); Eosinophils % (auto) 1.2 %; Hematocrit (blood only) 38.8 % (37-47); Hemoglobin 13.1 g/dL (12.0-16.0); Immature Granulocytes # (auto) 0.01 K/uL (0.00-0.02); Immature Granulocytes % (auto) 0.1 %; Lymphocytes # (auto) 1.84 K/uL (1.2-3.4); Lymphocytes % (auto) 24.2 %; Mean Corpuscular Hemoglobin 28.5 pg (25-34); Mean Corpuscular Hgb Conc 33.8 g/dL (32-36); Mean Corpuscular Volume 84.5 fL (80-100); Mean Platelet Volume 10.1 fL (7.4-10.4); Monocytes # (auto) 0.49 K/uL (0.11-0.59); Monocytes % (auto) 6.5 %; Neutrophils # (auto) 5.14 K/uL (1.4-6.5); Neutrophils % (auto) 67.7 %; Platelet Count 162 K/uL (130-400); RDW Coefficient of Variation 14.4 % (11.5-14.5); RDW Standard Deviation 45.1 fL (36.4-46.3); Red Blood Count 4.59 M/uL (4.2-5.4); White Blood Count 7.59 K/uL (4.8-10.8)
[2021-12-05 07:45] LABS: BUN Creatinine Ratio 15.3 (10-20); Chol HDL Ratio 3.3 (0-5); Est GFR (African American) 50.6 ml/min; Est GFR (Non-African American) 43.7 ml/min; Potassium 3.9 mmol/L (3.5-5.1)
[2021-12-05] MEDS ORDERED: PNEUMOCOCCAL Polysaccharide Vaccine 25mcg/0.5mL vial/Syr IM ONE (09:00)
[2021-12-05] MEDS ORDERED: lisinopril 10 MG TAB PO SCH (09:00)
[2021-12-05] MEDS ORDERED: ROSUVASTATIN CALCIUM 20 MG TAB PO SCH (09:00)
[2021-12-05] MEDS ORDERED: amLODIPine BESYLATE 5 MG TAB PO SCH (09:00)
[2021-12-05] MEDS ORDERED: hydroCHLOROthiazide 25 MG TAB PO SCH (09:00)
[2021-12-05] MEDS ORDERED: CLOPIDOGREL BISULFATE 75 MG TAB PO SCH (09:00)
[2021-12-05] MEDS ORDERED: PANTOprazole 40 MG TAB PO SCH (09:00)
[2021-12-05] MEDS ORDERED: ASPIRIN 81 MG ECTAB PO SCH (09:00)
[2021-12-05 09:17] LABS: Estimated Average Glucose 137 mg/dl; Hemoglobin A1C 6.4 % (4.5-5.6)
--- NOTE | 2021-12-05 09:24 | XCELERA ---
[id number]
--- NOTE | 2021-12-05 10:15 | Neurology Consultation ---
Date of Consultation December 05, 2021 Assessment & Plan (1) Acute CVA (cerebrovascular accident): (2) Vertebral artery stenosis: Acute to subacute appearing left cerebellar infarct presenting with vertigo and tendency to stagger to the left over the past month. Patient does have bilateral vertebral artery disease, severe stenosis of the proximal right vertebral artery and mild multifocal stenosis within the proximal left vertebral artery. She has a chronic left cerebellar lacunar infarct as well. Stroke risk factors for this patient include diabetes mellitus, hypertension, dyslipidemia, and tobacco use. She was already taking aspirin 81 mg/day and Crestor 40 mg/day as an outpatient. Clopidogrel has been added. Patient should continue with aspirin and Plavix for the next 3 weeks, then discontinue aspirin in favor of clopidogrel monotherapy, 75 mg/day. Would consider upgrading patient statin therapy. She will need additional counseling regarding tobacco cessation. Would recommend 30-day mobile cardiac outpatient telemetry. Consultation with PT/OT. May use as needed meclizine to address vertigo. History of Present Illness Reason for Consultation: Stroke Requesting Physician: Jc Collins MD Attending Physician: Nori Maxwell MD History of Present Illness The patient is a 71-year-old female with a chief complaint of episodic vertigo, feeling of imbalance, tendency to stagger to the left. Symptoms have been present for about the past month. Denies any hearing loss or ear pain or aural fullness. Does complain of chronic bilateral tinnitus. Denies any vision loss, diplopia, dysarthria, dysphagia, or focal weakness. Reports that her dizziness may occur while either standing, sitting, or lying, no consistent provoking factors. Past medical history notable for tobacco use, hyperlipidemia, hypertension, and type 2 diabetes mellitus. She takes daily low-dose aspirin and Crestor as an outpatient. A CT of the head was negative for hemorrhage or acute process. A CT angiogram of the brain was unremarkable. A CT angiogram of the neck had revealed severe stenosis within the proximal right vertebral artery and mild multifocal narrowing within the left vertebral artery. I discussed her case with Dr. Helton, ER physician and had suggested brain MRI to further exclude subacute stroke. Brain MRI was completed and did reveal a 1.5 x 0.6 cm left cerebellar stroke, subacute to acute. Patient has been admitted for further evaluation and management. This morning, patient is without symptoms, no dizziness or vertigo or other focal neurologic signs or symptoms. Allergies Allergy/AdvReac Type Severity Reaction Status Date / Time oxycodone AdvReac Intermediate "MAKES ME Unverified 12/04/21 11:13 SICK" Home Medications Medication Instructions Recorded Confirmed Type aspirin 81 mg tablet,delayed 81 mg PO DAILY #90 tab 04/25/21 12/04/21 Rx release metformin 500 mg tablet 500 mg PO BID #180 tab 04/26/21 12/04/21 Rx rosuvastatin 40 mg tablet 40 mg PO DAILY #90 tab 04/26/21 12/04/21 Rx hydrochlorothiazide 12.5 mg tablet 12.5 mg PO DAILY #30 tab 05/28/21 12/04/21 Rx lisinopril 30 mg tablet 30 mg PO DAILY #30 tab 05/28/21 12/04/21 Rx meclizine 12.5 mg tablet 12.5 mg PO Q6H PRN #30 tab 11/18/21 12/04/21 Rx omeprazole 20 mg capsule,delayed 20 mg PO DAILY #90 cap 11/28/21 12/04/21 Rx release cholecalciferol (vitamin D3) 1,250 50,000 unit PO WK 12/04/21 12/04/21 History mcg (50,000 unit) capsule Patient History Medical History DM2 (diabetes mellitus, type 2) E. coli septicemia (12/2018) GERD (gastroesophageal reflux disease) HTN (hypertension) Hyperlipidemia Peripheral vascular disease Surgical History History of cholecystectomy S/P hysterectomy secondary to DUB Status post arterial stent multiple b/l legs Family History Father Hypertension Diabetes Mother Hypertension Diabetes Brother Colorectal cancer Sister Coronary heart disease Denies family history of Ovarian cancer Prostate cancer Myocardial infarction Breast cancer Stroke Social History Smoking Status: Former smoker Tobacco Type: Cigarettes Age Started Using Tobacco: 30; packs per day: 0.25; Second Hand Exposure: No; Do You Dip or Chew Tobacco: No; Tobacco Cessation Education Requested by Patient: No Hx Alcohol Use: No Hx Substance Use: No Preferred Language: Maltese Communication Ability: Effective Visual Impairment: No Limitations Hearing Ability: Normal 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 Beliefs That Will Affect Care: None marital status: / Current Living Situation: Alone current occupational status: retired How many Children do You have: 5 Other Information That Helps Us Care for You: No Feels Safe at Home: Yes Safety Concerns: Feels Safe At This Time Childhood Exposure to Second-Hand Smoke: No caffeine: Yes (coffee) during the past year weight has: remained stable Dental Care, Regularly: No Physical Activity Frequency: Does not Exercise Seatbelt Use: always Sunscreen Use: Yes Assistive Devices: Glasses Review of Systems Constitutional: no fever and no chills Eyes: no blind spots and no diplopia Ear, Nose, Mouth, Throat: + tinnitus and + dizziness; no ear pain and no hearing loss Respiratory: no cough and no dyspnea Cardiovascular: no chest pain and no palpitations Gastrointestinal: no constipation and no diarrhea/loose stools Genitourinary: no urinary urgency and no urinary incontinence Musculoskeletal: no muscle weakness and no muscle atrophy Integumentary: no rash and no lesions Neurologic: as per Subjective / HPI, + gait abnormality and + unsteadiness; no headache(s) and no memory loss Psychiatric: no behavioral changes, no depression, no abnormal sleep pattern and no anxiety Hematologic / Lymphatic: no easy bruising and no lymphadenopathy Exam (Neuro) Constitutional: well developed and well nourished; no acute distress Eyes: normal visual small by confrontation, PERRL, normal accommodation and EOM intact bilaterally; no fundoscopic abnormality, no nystagmus and no papilledema Cardiovascular: Vessels: normal carotid upstroke; no carotid bruit Neurologic: Oriented to:: Person, Place and Time Memory: Short Term Intact and Remote Intact Attention: Span Intact and Concentration Intact Language: Naming Objects and Repeating Phrases Speech Fluency: negative Dysarthria Speech Aphasia: negative Aphasia Fund of Knowledge: Current Events, Past History and Vocabulary Cranial Nerves: Normal II (Visual small full to confrontation, visual acuity normal), III, IV, (Pupils equal round reactive to light and accommodation, eye movements normal), V (Facial sensation intact), VII (There is no facial droop or weakness), VIII (Hearing intact), IX, X (Palate elevates to midline), XI (Shoulder shrug intact) and XII (Tongue protrudes to midline) Motor Strength: Normal Lower Extremities and Normal Upper Extremities; negative Pronator Drift Motor Tone: Normal Lower Extremities and Normal Upper Extremities Muscle Bulk/Involuntary Movements: No Involuntary Movements; negative Muscle Atrophy Sensation: Light Touch Intact, Pain/Temperature Intact, Vibration Intact and Proprioception Intact Coordination: Normal; negative Limited Balance, Dysdiadochokinesia, Finger-Nose Abnormal or Heel-Cintron Abnormal Deep Tendon Reflexes: Rt Triceps: 2+, Lt Triceps: 2+, Rt Biceps: 2+, Lt Biceps: 2+, Rt Brachioradialis: 2+, Lt Brachioradialis: 2+, Rt Patellar: 2+, Lt Patellar: 2+, Rt Ankle: 2+ and Lt Ankle: 2+ Special Tests: negative Babinski Present Gait: Normal Station and Gait Results & Data ([facility]) Vital Signs (Past 12 Hours) Vital Signs Temp Pulse Pulse Resp BP BP Pulse Ox 12/05/21 07:57 36.6 C 68 18 186/84 H 98 12/05/21 07:42 42 L 12/05/21 04:20 36.4 C L 74 18 170/74 H 96 12/05/21 00:47 48 L 12/04/21 23:47 36.7 C 51 L 18 168/75 H 95 Laboratory Results WBC 7.59, hemoglobin 13.1, hematocrit 38.8, MCV 84.5, platelet count 162, sodium 140, potassium 3.9, BUN 19, creatinine 1.24, glucose 118, hemoglobin A1c 6.4, calcium 9.0, AST 11, ALT 6, triglycerides 196, cholesterol 122, LDL 46, VLDL 39, HDL 37. Diagnostic Findings CT of the head negative for hemorrhage or acute process. CT angiography of the head unremarkable. CT angiography of the neck reveals a 40% stenosis at the takeoff of the right internal carotid artery, no significant stenosis within the left carotid arteries. There is a 5 mm segment of severe/critical stenosis within the proximal right vertebral artery and mild multifocal narrowing within the proximal left vertebral artery. Brain MRI reveals a 1.5 x 0.6 cm focus of restricted diffusion within the left cerebellar hemisphere consistent with a small acute to subacute infarct, no hemorrhage or mass-effect. There is an old lacunar infarct within the left cerebral hemisphere as well. I reviewed the images as well as the radiologist interpretation of these tests and agree. An echocardiogram completed today reveals low normal left ventricular systolic function, ejection fraction 50 to 55%, borderline global hypokinesis of the left ventricle, moderate concentric left ventricular hypertrophy, grade 1 diastolic dysfunction, small right ventricular cavity, moderately dilated left atrium. No interatrial shunt. Electrocardiogram reveals sinus bradycardia with premature atrial complexes. Coding Level of Care Code 66722 Initial In Care Lvl 3 Diagnoses Acute CVA (cerebrovascular accident) I63.9 Vertebral artery stenosis I65.01 Laterality: right (1) Vertebral artery stenosis Laterality: right Qualified Code(s): I65.01 - Occlusion and stenosis of right vertebral artery
--- NOTE | 2021-12-05 12:01 | Pharmacy Report ---
Pharmacy Glycemic Short Note 2 - Date of Service December 05, 2021 - Glycemic Short BSG Results (Last 24 hours): 12/04/21 12/04/21 12/04/21 11:11 18:18 18:19 Glucose 156 H POC Glucose 304 H* 331 H* 12/04/21 12/04/21 12/04/21 21:33 23:56 23:58 Glucose POC Glucose 227 H 69 L* 68 L* 12/05/21 12/05/21 12/05/21 00:22 04:43 06:29 Glucose 118 H POC Glucose 100 H 162 H 12/05/21 12/05/21 07:38 11:42 Glucose POC Glucose 111 H 142 H OUTPATIENT ANTIDIABETIC REGIMEN: * metformin 500 mg bid * A1c 6.4% ASSESSMENT: * Patient admitted with acute CVA. Hx of diabetes, htn, dyslipidemia, tobacco use. * Pharmacy consulted for glycemic monitoring as blood sugars elevated on admission, likely related to solumedrol being given * BSGs trending down quickly overnight, likely related to insulin stacking as dinner/HS insulin given close together. Plan to loosen CR today and use novolog for insulin coverage. No further steroids ordered * IV contrast given /6 - so recommended x 48 hrs before resuming home metformin PLAN FOR INPATIENT GLYCEMIC CONTROL: * Hold outpatient oral diabetes medications * Basal insulin * Lantus - hold * Bolus insulin * NovoLog per scale ACHS or Q6hrs while NPO * Goal Range: Low 110 mg/dL - High 140 mg/dL * Correction Factor: 35 mg/dL/unit * Nutritional / Prandial insulin per carb ratio of 1 unit per 20 grams CHO consumed
--- NOTE | 2021-12-05 14:16 | Pharmacy Report ---
Pharmacy Progress Note - Date of Service December 05, 2021 - Progress Note Patient has an acute/subacute CVA and T2DM, but is not on a diabetes medication with proven CVD benefit (namely GLP-1 agonist or SGLT2 inhibitor). Per Dr. Maxwell, plan is to defer selection to their outpatient provider due to familiarity with risks/benefits of such therapies. Please let us know if we can be of further assistance.
[2021-12-05] MEDS ORDERED: STROKE PATIENT DISCHARGE STA (17:19)
--- NOTE | 2021-12-05 17:21 | Discharge Summary ---
Date of Service December 05, 2021 Admission HPI Per Admitting Provider Quiana Tracey is a 71 year old female who presents to the ER with persistent vertigo, nausea and vomiting. She reports similar complaints to when she was hospitalized overnight here from November 17-2021 (Symptoms began on November 12). On that occasion her symptoms resolved overnight and she was felt to have acute labyrinthitis due to recent upper respiratory illness. She reports her symptoms continued as soon as she got home however. Her main concern is ongoing nausea and vomiting as she has not eaten much since her symptoms started. Her balance has also been affected and she has been falling to the left side. She denies any vision problems other than room spinning sensation / dizziness on moving her head. No change in speech or hearing. No focal extremity weakness of lack of co-ordination. She is right handed. She reports not taking her medications regularly for the last 2 months but for the last week she has been trying to take her blood pressure medication again. She does not think she was taking aspirin or rosuvastatin when her symptoms started and presumably her stroke occurred. In the ER CT head showed no acute pathology, CTA head/neck showed no significant stenosis or occlusion of carotid arteries, 40% focal stenosis of right ICA, 5mm severe/critical stenosis of proximal right vertebral artery, multifocal narrowing within proximal left vertebral artery due to calcified plaque. MRI brain 1.5 x 0.6cm left cerebellar hemisphere restricted diffusion consistent with small acute to subacute infarct. She was referred to medicine for admission and ongoing management prior to MRI results for vertigo. Principal Diagnosis Subacute left cerebellar CVA Uncontrolled hypertension Severe/critical stenosis of right vertebral artery Discharge Exam Constitutional WD/WN, vitals as above Eyes PERRL, conjunctivae normal, anicteric sclerae EOM intact bilaterally; no anisocoria and no nystagmus ENMT external ear and nose normal, oropharynx normal Neck trachea midline, no thyromegaly Respiratory normal respiratory effort, lungs clear to auscultation Cardiovascular RRR, no murmur, no edema Chest (Breasts) Chest: normal inspection of chest Gastrointestinal (Abdomen) normal bowel sounds, soft, nontender, no hepatosplenomegaly Musculoskeletal Extremities: extremities normal to inspection; no cyanosis and no clubbing Skin no rashes, warm and dry Neurologic CN's II-XI intact bilaterally, moves all extremities and awake; no focal motor deficits and not confused Speech / Cognition: normal speech Motor/Sensory: no tremor and no sensory deficit Coordination: + abnormal rapid alternating movements (Slightly slower and off on the left); normal [id number] test Psychiatric A+Ox3, euthymic affect Lymphatic no lymphedema Discharge Data Allergies Allergy/AdvReac Type Severity Reaction Status Date / Time oxycodone AdvReac Intermediate "MAKES ME Unverified 12/04/21 11:13 SICK" Consultations 12/04/21 14:40 ED Decision to Admit Stat 12/04/21 18:56 Consult Neurology Routine 12/05/21 17:02 Consult [facility] pit manager Routine Ordered Studies 12/04/21 11:04 CT angio head w con Stat CT angio neck with con Stat CT head/brain wo con Stat 12/04/21 14:22 MR brain wo con Stat Echocardiogram Hospital Course (1) Acute CVA (cerebrovascular accident): Left cerebellar subacute CVA Suspect stroke event was prior to her last admission therefore no need for passive hypertension, needs improved blood pressure control ?due to left vertebral artery plaque disease likely small thrombotic event She was not taking any of her medications including aspirin or statin for at least the last 6 months and continues to smoke daily She does not check her blood sugars at home and her blood pressure has been uncontrolled Started ASA + clopidogrel x3 weeks, then drop the aspirin and continue Plavix indefinitely Restarted rosuvastatin 40mg PO daily HbA1C fairly well controlled at 6.4% despite not being on medications-recommend SGLT2 or GLP 1 that has cardiovascular benefit in addition to glucose control in the setting of cardiovascular disease Lipid panel controlled but still needs high intensity statin due to severe PAD and CVA Echocardiogram without PFO or thrombus Telemetry monitoring with normal sinus rhythm and sinus bradycardia but no arrhythmias-recommend 30-day cardiac event monitor after discharge to look for occult atrial fibrillation- be arranged by nurse Navigator There is no intervention that can be done on the severe vertebral artery stenosis other than medical management PT/OT saw her and her dizziness and nausea are much improved and she is stable for discharged home Can take meclizine as needed for dizziness Strongly encouraged continued smoking cessation Needs improved blood pressure control-added amlodipine 5 mg daily, discontinue HCTZ as she was having vomiting. Restart previous lisinopril 30 mg daily Appreciate neurology consultation (2) Vertigo: Previously thought to be secondary to labyrinthitis however with hindsight suspect CVA occurred on November 12. Improved Meclizine as needed (3) DM2 (diabetes mellitus, type 2): HbA1C 6.4 she does not check sugars at home has not been taking her Metformin for 6 months Recommend not restarting Metformin due to recent contrast dye but also would benefit from SGLT2 inhibitor or GLP-1 agonist that has cardiovascular benefits as per newer stroke guidelines (4) HTN (hypertension): Blood pressures are significantly uncontrolled and she has not been taking her usual home lisinopril and HCTZ Restart home lisinopril 30 mg daily Discontinue HCTZ due to recent nausea and vertigo Start amlodipine 5 mg daily and titrate up as needed as an outpatient Check blood pressures in the outpatient follow-up with PCP (5) GERD (gastroesophageal reflux disease): Patient reports not well controlled Restart PPI but switch from omeprazole to Protonix due to being on Plavix (6) Peripheral vascular disease: Severe, with a history of numerous stents, and found to have 40% stenosis of the R ICA, severe/critical stenosis of the right vertebral artery and mild stenosis left vertebral artery on imaging here Continues to smoke-highly encouraged quitting With aspirin and Plavix as above and adding statin (7) Hyperlipidemia: Restarted rosuvastatin 40mg PO daily (8) Nausea & vomiting: Improved with Zofran and fluids Meclizine as needed at home (9) Vertebral artery stenosis: As above (10) Vitamin D deficiency: Recently diagnosed and started on vitamin D once weekly (11) Tobacco use: Highly encourage smoking cessation (12) Left bundle branch block: She has had some QRS widening in the past and left axis deviation Now with left bundle branch block Echocardiogram here with low normal EF, no wall motion abnormalities but with borderline global hypokinesis of left ventricle Follow-up with PCP and consider nuclear stress test as an outpatient (13) Mitral stenosis: Mild, seen on echocardiogram Follow as an outpatient (14) Mitral regurgitation: Moderate, seen on echocardiogram Follow as an outpatient VTE Prophylaxis -SCDs Disposition-stable for discharge home Total Time Total Time Spent Total Time Spent (In Minutes): 45 minutes Discharge Plan Discharge Items Patient Disposition: Home - Self-Care Reason For Visit: VERTIGO Discharge Diagnosis: Cerebellar stroke Hypertension Condition on Discharge: Fair Activity: As commented below Lifting: Gradually increase as tolerated Bathing: No limitations Exercise/Sports: Gradually increase as tolerated Driving/Machine Use: No driving Non-emergency contact: Primary Care Provider and Neurologist Call non-emergency contact if: you have any medication questions and your symptoms worsen Follow-up/Referrals: Ramiro Amaro MD [Physician] - (Follow up within 2-3 weeks with Neurology ) Marika Vasquez DO [Primary Care Provider] - (Follow up within 1-2 weeks) Diet: Carb Consistent or DM2 and Heart Healthy Addtl Attending Provider Instructions: You were admitted with persistent dizziness and nausea and were found to have a stroke in the back portion of your brain called the cerebellum. You have severe buildup of plaque inside the arteries that supply blood flow to your brain. This can be treated with a cholesterol medication and by taking blood thinners to prevent future strokes. It is also VERY IMPORTANT to immediately quit smoking and to better control your blood pressure. All of these things will prevent future strokes. You can take the meclizine as needed for dizziness. You should take the aspirin and the Plavix as your blood thinners for the next 3 weeks, and THEN STOP the aspirin and only take Plavix after that. This is in addition to the blood pressure medications and the cholesterol medication. Please talk to your doctor about a better medication for your diabetes that also helps improve your heart health (such as a SGLT-2 inhibitor or a GLP-1). You will also need a 30 day heart monitor to wear around to check for abnormal heart rhythms that can cause strokes. Our nurse navigator should be contacting you regarding this. Risk Factors for Stroke: You can reduce your chances of stroke by working with your medical provider to adopt a healthy lifestyle. Some specific ways to lower your chance of stroke are: * If you are a smoker, now is the time to stop smoking cigarettes * If you are diabetic, improve the control of your blood sugars * Avoid excessive amounts of alcohol * Control high blood pressure * Lose weight if you are overweight * Be sure to lead an active lifestyle * Eat a healthy diet low in salt, cholesterol and fat You should know about other risk factors for stroke that you are unable to control. These include: * Age 55 years or older * Male gender * Certain racial groups: , or / * Family History of Stroke, Mini stroke or Heart Attack * Sickle Cell Disease Follow Up: It is important for you to keep your follow up appointments with your medical provider. Who to Call and When: Medical Emergencies: Call 911 immediately if you experience any of the following warning signs and symptoms of Stroke: * Sudden numbness or weakness of the face, arm or leg, especially on one side of the body * Sudden confusion, trouble speaking or understanding * Sudden trouble seeing in one or both eyes * Sudden trouble walking, dizziness, loss of balance or coordination * Sudden severe headache with no cause Do not delay calling 911 if you experience any warning signs or symptoms of a stroke. Delay in seeking medical attention may affect what treatments can be given to you. . Pending Studies at Discharge: No Stand-Alone Forms: Medications to Prevent Stroke, My [facility] Liquid5, Smoking Cessation Medications and DC Order Prescriptions: New clopidogrel 75 mg Tablet 75 mg PO QAM Qty: 30 RF: 0 amlodipine [Norvasc] 5 mg Tablet 5 mg PO QAM Qty: 30 RF: 0 pantoprazole 40 mg Tablet,Delayed Release (Dr/Ec) 40 mg PO DAILY Qty: 30 RF: 0 (DME) OneTouch Ultra Test Strip See Rx Instructions .Route Qty: 30 RF: 0 (DME) lancets [OneTouch Delica Lancets] 33 gauge misc See Rx Instructions .Route Qty: 30 RF: 0 Continued cholecalciferol (vitamin D3) 1,250 mcg (50,000 unit) capsule 50,000 unit PO WK RF: 0 meclizine 12.5 mg Tablet 12.5 mg PO Q6H PRN (Reason: dizziness) Qty: 30 RF: 0 aspirin 81 mg tablet,delayed release (DR/EC) 81 mg PO DAILY 21 Days Qty: 21 RF: 0 lisinopril 30 mg tablet 30 mg PO DAILY Qty: 30 RF: 0 rosuvastatin 40 mg tablet 40 mg PO DAILY Qty: 30 RF: 0 Discontinued metformin 500 mg tablet 500 mg PO BID Qty: 180 RF: 0 hydrochlorothiazide 12.5 mg tablet 12.5 mg PO DAILY Qty: 30 RF: 2 omeprazole 20 mg capsule,delayed release(DR/EC) 20 mg PO DAILY Qty: 90 RF: 0 Discharge Orders: Discharge Order (Routine); Ordered 12/05/21 Ordered By: Nori Maxwell Admission Data Admit Date/Time: 12/04/21 15:35 Attending Provider: Nori Maxwell Admit Provider: Jc Collins Primary Care Provider: Marika Vasquez Other Providers: Jc Collins ; Ramiro Amaro Other Interventions: Discharge Summary Assessment (RN) Last Done: 12/05/21 17:33 Coding Level of Care Code 92489 OBS Care - Discharge Diagnoses Acute CVA (cerebrovascular accident) I63.9 Vertigo R42 DM2 (diabetes mellitus, type 2) E11.9 HTN (hypertension) I10 GERD (gastroesophageal reflux disease) K21.9 Peripheral vascular disease I73.9 Hyperlipidemia E78.5 Nausea & vomiting R11.2 Vomiting type: unspecified Vertebral artery stenosis I65.01 Laterality: right Vitamin D deficiency E55.9 Tobacco use Z72.0 Left bundle branch block I44.7 Mitral stenosis I05.0 Mitral regurgitation I34.0
--- NOTE | 2021-12-05 17:47 | Pharmacy Report ---
Pharmacist Stroke Counseling - Date of Service December 05, 2021 - Scope: Pharmacy has been consulted to provide medication discharge counseling for this patient admitted with ischemic stroke as per the Pharmacist Discharge Counseling for Stroke Patients Protocol. - Medications on Discharge: Home Medications Medication Instructions Recorded Confirmed cholecalciferol (vitamin D3) 1,250 50,000 unit PO WK 12/04/21 12/04/21 mcg (50,000 unit) capsule New Rx's Medication Instructions Recorded amlodipine 5 mg tablet (Norvasc) 5 mg PO QAM #30 tab 12/05/21 aspirin 81 mg tablet,delayed 81 mg PO DAILY 21 Days #21 tab 12/05/21 release blood sugar diagnostic (OneTouch #30 ea 12/05/21 Ultra Test) clopidogrel 75 mg tablet 75 mg PO QAM #30 tab 12/05/21 lancets 33 gauge (OneTouch Delica #30 ea 12/05/21 Lancets) lisinopril 30 mg tablet 30 mg PO DAILY #30 tab 12/05/21 meclizine 12.5 mg tablet 12.5 mg PO Q6H PRN #30 tab 12/05/21 pantoprazole 40 mg tablet,delayed 40 mg PO DAILY #30 tab 12/05/21 release rosuvastatin 40 mg tablet 40 mg PO DAILY #30 tab 12/05/21 - Action: The above medications, specifically ones for stroke treatment/prophylaxis, have been reviewed in detail with the patient and/or patient member service representative(s) prior to discharge. This includes indication, common adverse reactions, drug interactions, and medication administration. Medication counseling has been employed using the teach-back method to ensure understanding. - Outcome: The patient and/or patient member service representative(s) have demonstrated understanding of the medications. Thank you for allowing pharmacy to be involved in the care of this patient. Please call [phone] with any additional questions
== END 2021-12-05 18:52 | disposition home or self-care (01) ==
LOC: ED 10:36 → 2N 10:36 → SUATTDRO 15:35 → 2N 18:05